=== PATIENT | female | born 1945 | race Caucasian/White ===

== ENCOUNTER 2016-06-04 16:29 | Inpatient (IN) ==
[2016-06-04] MEDS ORDERED: DILTIAZEM 100 MG VIAL.ADD IV ONE (17:25)
[2016-06-04] MEDS ORDERED: DILTIAZEM 50 MG/10 ML VIAL IV ONE ×2 (17:25→17:31)
[2016-06-04] MEDS ORDERED: DILTIAZEM 50 MG/10 ML VIAL IV STA (17:41)
--- NOTE | 2016-06-04 17:42 | Emergency Department Note ---
Dago Rodriguez Hilary, am scribing for, and in the presence of, Fredy Mark MD 17:36. Deedee Rodriguez Charles R, MD, personally performed the services described in this documentation, ascribed by Dari Loza in my presence, and it is both accurate and complete 742 . Arrival - Arrival Chief Complaint: Arrhythmia/Palpitations Stated Complaint: IRREGULAR HEART BEAT. COUGH ED Nursing Triage Note: Pt c/o Palpitations, cough, SOB, and blood in her urine for several days. Mode of Arrival: Wheelchair Limitations: No Limitations Source: Patient, RN Notes Reviewed - History of Present Illness HPI Narrative: Pt is a 70 y/o female presenting to the ED with c/o irregular heartbeat and coughing which onset a few days ago. Pt confirms SOB on exertion and her heart being "out of rhythm". Pt states she is supposed to be taking Coumadin but hasn' t been taking it because it gives her bruises. Onset (ago): day(s) Allergies/Adverse Reactions: Allergies Allergy/AdvReac Type Severity Reaction Status Date / Time iodine Allergy ITCHING Verified 04/19/15 07:54 Home Medications: Home Medications Medication Instructions Recorded Confirmed Type Amiodarone Tab [Cordarone Tab] 400 mg PO BID 06/04/16 06/04/16 History Ergocalciferol (Vitamin D2) 50,000 unit PO BID 06/04/16 06/04/16 History [Vitamin D2] Nystatin [Nystatin Oint] 1 applic TOP BID 06/04/16 06/04/16 History Warfarin Sodium 3 mg PO DAILY 06/04/16 06/04/16 History Review of System - Review of System 12 point system: reviewed and no additional remarkable complaints except as stated - Review of System Constitutional: Absent: fever Respiratory: Present: cough Cardiovascular: Present: palpitations, dyspnea on exertion Medical,Surgical,& Family Hx - Medical History Cardio: History of: Cardiac Dysrhythmia (AFIB), Hypertension - Surgical History Abdominal Surgeries: Surgical HX of: Abdominal Surgery (AAA repair) Reproductive Surgeries: Surgical HX of;: Hysterectomy - Social History Smoking Status: Never smoker Exam Vital Signs: Vital Signs Temperature 98.6 F 06/04/16 16:38 Pulse Rate 151 H 06/04/16 16:38 Respiratory Rate 20 06/04/16 16:38 Blood Pressure 175/118 06/04/16 16:38 O2 Sat by Pulse Oximetry 96 06/04/16 16:38 - General General appearance: alert, in no apparent distress - Head Head exam: Present: atraumatic, normocephalic - Eye Eye exam: Present: normal appearance, PERRL, EOMI - ENT ENT exam: Present: mucous membranes moist, TM's normal bilaterally. Absent: mucous membranes dry - Neck Neck exam: Present: full ROM, trachea midline. Absent: tenderness - Chest Chest inspection: Present: symmetric chest wall rise. Absent: tenderness - Respiratory Respiratory exam: Present: rales, rhonchi (bilateral) - Cardiovascular Cardiovascular exam: Present: tachycardia, irregular rhythm, other (AFIB; corotic massage with no relief) - Abdominal Exam Abdominal exam: Present: soft, normal bowel sounds. Absent: distention, tenderness - Extremities Exam Extremities exam: Present: full ROM. Absent: tenderness - Back Exam Back exam: Present: full ROM. Absent: tenderness - Neurological Exam Neurological exam: Present: alert, oriented X3, CN II-XII intact. Absent: motor sensory deficit - Psychiatric Psychiatric exam: Present: normal affect, normal mood - Skin Skin exam: Present: warm, dry, intact, normal color. Absent: rash Course - Consultations Consultation #1: Dr. 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 Ivan telemetry keep her on a Cardizem infusion start metoprolol 50 mg daily and continue Lovenox Time: 18:32 Results - Labs CBC & BMP: 06/04/16 17:47 06/04/16 17:47 Critical Care Time Critical Care Time: Yes Total Critical Care Time: 60 Disposition Clinical Impression: Palpitations, Atrial fibrillation with RVR, Medical non-compliance, Subtherapeutic anticoagulation Case discussed with: patient, patient's family Disposition: Still a Patient Condition: Stable Time of Disposition: 18:33
[2016-06-04] MEDS ORDERED: FUROSEMIDE 40 MG/4 ML VIAL IV STA (17:52)
--- NOTE | 2016-06-04 17:53 | XRay Report ---
Portable chest Date: 06/04/2016 Clinical history: Shortness of breath Comparison: 01/04/2014 Technique: Portable AP sitting chest Findings: The heart is minimally enlarged with calcification in the aortic knob. Chronic scarring in the lungs with atelectasis at the lung bases. The left cardiac fat pad. Stable mediastinum with degenerative changes. Impression: Persistent cardiomegaly with evidence of COPD and chronic scarring. Atelectasis at the lung bases. PROCEDURE INTERPRETED AT [facility] DEPARTMENT OF RADIOLOGY Final Report Signed by: Dr. Haylee English
[2016-06-04 17:54] LABS: PT Patient Result 10.8 SECS
[2016-06-04 18:06] LABS: Free T4 (Free Thyroxine) 1.58 NG/DL (0.76-1.46)
[2016-06-04 18:08] LABS: Basophils % 0.5 % (0.0-0.8); Eosinophils # 0.2 10*3/uL (0.0-0.87); Eosinophils % 2.4 % (0.00-10.9); Hemoglobin 12.3 GM/DL (12.0-16.0); Immature Granulocytes % 0.2 %; Immature Granulocytes Absolute 0.02 #; Lymphocytes # 2.9 10*3/uL (1.4-4.0); Lymphocytes % 36.1 % (21.3-54.2); Mean Corpuscular HGB Conc 30.4 GM/DL (32-36); Mean Corpuscular Hemoglobin 22 PG (27-34); Mean Corpuscular Volume 71.1 FL (87-102); Mean Platelet Volume 10.3 FL (9.6-12.0); Monocytes # 0.7 10*3/uL (0.11-0.8); Monocytes % 8.9 % (1.7-12.7); Neutrophils # 4.2 10*3/uL (1.4-7.4); Neutrophils % 51.9 % (38.7-73.9); Platelet Count 231 T/CUMM (130-400); White Blood Count 8.1 T/CUMM (4-12)
[2016-06-04 18:10] LABS: Albumin 3.4 G/DL (3.4-5.0); Bilirubin,Total 0.5 MG/DL (0.2-1.0); Calcium 8.8 MG/DL (8.5-10.1); Osmolality,Calculated 275.5 MOS/KG (273-304); Potassium 3.6 MMOL/L (3.5-5.1); Thyroid Stimulating Hormone 1.3 uIU/ml (0.358-3.74); Total Protein 7.3 G/DL (6.4-8.3); Troponin I Only 0.018 NG/ML (0.00-0.045)
[2016-06-04 18:16] LABS: Hematocrit 40.5 VOL% (35.7-47.0)
[2016-06-04] MEDS ORDERED: FUROSEMIDE 40 MG/4 ML VIAL ONE (18:17)
[2016-06-04] MEDS ORDERED: ENOXAPARIN 100 MG/ML SYRINGE SUBCUT STA (18:17)
[2016-06-04] MEDS ORDERED: ENOXAPARIN 100 MG/ML SYRINGE SUBCUT ONE (18:26)
[2016-06-04] MEDS ORDERED: METOPROLOL TARTRATE 50 MG TABLET PO STA (18:32)
[2016-06-04] MEDS: DILTIAZEM INJ 100 MG in SODIUM CHLORIDE 0.9% 100 ML IV SCH (18:37)
[2016-06-04] MEDS ORDERED: METOPROLOL TARTRATE 50 MG TABLET ONE (18:38)
[2016-06-04 19:02] LABS: Apearance,Urine CLEAR (Clear); Bacteria,Urine Occasional /HPF (Few); Bilirubin,Urine Negative (Negative); Blood, Urine Large mg/dL (Negative); Glucose,Urine (UA) Negative (Negative); Ketones,Urine Negative (Negative); Nitrite,Urine Negative (Negative); Protein,Urine 30 MG/DL; RBC,Urine 64 /HPF (0-4); Urine Color Yellow (Yellow); Urine Specific Gravity 1.003 (1.001-1.035); Urine Urobilinogen < 2.0 EU/DL (0.2-1.0); WBC,Urine 6 /HPF (0-6)
[2016-06-04] MEDS ORDERED: MAGNESIUM SULF RIDER 4 GM in PREMIX 1 EACH IV PRN (20:36)
[2016-06-04] MEDS ORDERED: SODIUM CHLORIDE 0.9% 1,000 ML IV SCH (20:36)
[2016-06-04] MEDS ORDERED: MORPHINE 2 MG/1 ML SYRINGE IV PRN (20:36)
[2016-06-04] MEDS ORDERED: POTASSIUM CHLORIDE 20 MEQ TABLET PO PRN (20:36)
[2016-06-04] MEDS ORDERED: ONDANSETRON 4 MG/2 ML VIAL IV PRN (20:36)
[2016-06-04] MEDS ORDERED: MAGNESIUM SULF RIDER 2 GM in PREMIX 1 EACH IV PRN (20:36)
[2016-06-04] MEDS: NYSTATIN OINT 15 GM TUBE TOP SCH (21:42)
[2016-06-04] MEDS: ERGOCALCIFEROL 50,000 UNIT CAPSULE PO SCH (21:42)
[2016-06-04] MEDS: AMIODARONE 200 MG TABLET PO SCH (21:42)
[2016-06-04 21:49] LABS: Troponin I Only 0.027 NG/ML (0.00-0.045)
[2016-06-05 05:47] LABS: Basophils # 0.1 10*3/uL (0.0-0.2); Basophils % 0.7 % (0.0-0.8); Eosinophils # 0.2 10*3/uL (0.0-0.87); Eosinophils % 2.6 % (0.00-10.9); Hemoglobin 11.4 GM/DL (12.0-16.0); Immature Granulocytes % 0.3 %; Immature Granulocytes Absolute 0.02 #; Lymphocytes # 3.1 10*3/uL (1.4-4.0); Lymphocytes % 41.2 % (21.3-54.2); Mean Corpuscular Hemoglobin 21 PG (27-34); Mean Corpuscular Volume 70.5 FL (87-102); Mean Platelet Volume 10.9 FL (9.6-12.0); Monocytes # 0.9 10*3/uL (0.11-0.8); Monocytes % 11.2 % (1.7-12.7); Neutrophils # 3.3 10*3/uL (1.4-7.4); Platelet Count 213 T/CUMM (130-400); Red Blood Count 5.39 MC/CUMM (3.8-5.5); Red Cell Distribution Width 17.3 % (9.3-17.3); White Blood Count 7.6 T/CUMM (4-12)
[2016-06-05] MEDS ORDERED: ENOXAPARIN 100 MG/ML SYRINGE SUBCUT SCH (06:00)
[2016-06-05 06:10] LABS: Band Neutrophils 3 % (0-10); Eosinophils 3 % (0-10); Hypochromasia 2+; Lymphocytes 37 % (20-55); Microcytosis 1+; Segmented Neutrophils 51 % (50-85); Total Cells Counted 100
[2016-06-05 06:11] LABS: Platelet Estimate Adequate
[2016-06-05 06:16] LABS: Bilirubin,Total 0.5 MG/DL (0.2-1.0); Calcium 8.3 MG/DL (8.5-10.1); Magnesium 2.2 MG/DL (1.8-2.4); Osmolality,Calculated 281.3 MOS/KG (273-304); Potassium 3.9 MMOL/L (3.5-5.1); Risk Ratio 4.76; Total Protein 6.5 G/DL (6.4-8.3); VLDL CHOLESTEROL 41.2 MG/DL
[2016-06-05 06:21] LABS: Troponin I Only 0.017 NG/ML (0.00-0.045)
--- NOTE | 2016-06-05 07:00 | EKG Report ---
Stationary ECG Study [facility] ER Test Date: 06/04/2016 4:40:26 PM Pat Name: JESSICA AZAR Department: Room: 284 Gender: F Yard Associate: Yovani Cervantes : 1945 Requested by: Fredy Donaldson Order Number: [id number] Reading MD: IAIN FORDE Intervals [place] Rate: 138 P: 999 WI: 0 QRS: 47 QRSD: 98 T: 70 QT: 291 QTc: 372 Interpretive Statements ATRIAL FIBRILLATION WITH RAPID VENTRICULAR RESPONSE ABNORMAL RHYTHM ECG Electronically Signed On 06-10-16 07:40:11 CDT by IAIN FORDE [email or web address]
[2016-06-05] MEDS ORDERED: WARFARIN 3 MG TABLET PO SCH (09:00)
[2016-06-05] MEDS ORDERED: METOPROLOL TARTRATE 50 MG TABLET PO SCH (09:00)
--- NOTE | 2016-06-05 09:03 | XRay Report ---
XR chest 1V portable Indication: Shortness of breath Comparison: Chest x-ray 06/04/2016 Technique: Portable AP chest was performed. Findings: Borderline to mild cardiomegaly is present likely accentuated by AP technique. Minimal intimal calcification of the aorta is demonstrated. Vasculature appears within normal limits. The lungs are clear. Bones and soft tissues demonstrate no significant abnormalities. Impression: 1. Borderline cardiomegaly. 2. Otherwise no evidence of active cardiac pulmonary disease. 06/05/2016 8:59 AM PROCEDURE INTERPRETED AT [facility] DEPARTMENT OF RADIOLOGY Final Report Signed by: Dr. Gagandeep Rivas
[2016-06-05] MEDS: ASPIRIN EC 81 MG TABLET PO SCH (09:17)
[2016-06-05] MEDS: PANTOPRAZOLE 40 MG TABLET PO SCH (09:17)
[2016-06-05] MEDS ORDERED: DILTIAZEM 50 MG/10 ML VIAL IV ONE (09:30)
[2016-06-05] MEDS: ERGOCALCIFEROL 50,000 UNIT CAPSULE PO SCH ×2 (09:34→21:39)
[2016-06-05] MEDS: AMIODARONE 200 MG TABLET PO SCH ×2 (09:35→21:46)
[2016-06-05] MEDS: DILTIAZEM INJ 100 MG in SODIUM CHLORIDE 0.9% 100 ML IV SCH (09:36)
[2016-06-05] MEDS: NYSTATIN OINT 15 GM TUBE TOP SCH ×2 (09:37→21:40)
--- NOTE | 2016-06-05 09:56 | Cardiology History & Physical ---
<Mary Luis E - Last Filed: 06/05/16 09:42> Assessment and Plan - Time spent with patient Time spent with patient: Greater than 30 minutes Time spent discussing smoking cessation with patient: 3 to 10 minutes (1) Upper respiratory infection Status: Acute Assessment and plan: See plan of care listed below Current Visit: Yes (2) Hypertension Status: Chronic Assessment and plan: See plan of care listed below Current Visit: Yes (3) Obesity (BMI 30.0-34.9) Status: Chronic Assessment and plan: See plan of care listed below Current Visit: Yes (4) Atrial fibrillation with RVR Status: Acute Assessment and plan: See plan of care listed below Current Visit: Yes (5) Medical non-compliance Status: Chronic Assessment and plan: See plan of care listed below Current Visit: Yes (6) COPD (chronic obstructive pulmonary disease) Status: Chronic Assessment and plan: See plan of care listed below Current Visit: Yes History of Present Illness Chief complaint: Atrial fibrillation with rapid ventricular response 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 RICHARD AT DISCHARGE) Ms. Yoon, 70WF, has risk factors significant for: hypertension, obesity, remote tobaccoism (quit 16 years ago), COPD. History of paroxysmal atrial fibrillation, SVT and known abdominal aortic aneurysm. Patient presented to the emergency department at [facility] last evening after experiencing heart racing and shortness of breath. She was found to be in atrial fibrillation with rapid ventricular response, heart rate 150s. She was given IV Cardizem, currently at 5 mg/h, and her heart rate has improved to 70s. She remains in atrial fibrillation. Patient denies having chest pain, heaviness or tightness. She is coughing frequently and contributes this to allergies. Since she has been battling her "allergies" she has found that she has been wheezing and short of breath. She did take Mucinex over the weekend for her allergies. She tells me she is usually very active and can perform her to activities without chest pain, heaviness or tightness. Patient has had paroxysmal atrial fibrillation for over 30 years. In the past, she has taken warfarin but quit taking several months ago. She has not been taking amiodarone as prescribed. She had a stroke approximately 30 years ago without residual deficits. Cardiac biomarkers are negative. ProBNP mildly elevated at 364. Patient acknowledges that she has been a noncompliant patient. It has been over a year since she seen Dr. Forde. She would like to see Dr. Odonnell for primary care needs at discharge. We discussed the possibility of using a nontraditional anticoagulants for stroke prevention she is agreeable to this approach. ASSESSMENT/PLAN: 1. ATRIAL FIBRILLATION WITH RVR -amiodarone has been restarted. She is currently on IV diltiazem 5 mg/h. I will increase her beta blockade and continue Amiodarone, stopping IV calcium channel barbara. Echocardiogram. 2. HYPERTENSION -adjust medications accordingly 3. REMOTE TOBACCOISM -they continued cessation of tobacco use was discussed 4. URI -will add respiratory treatments as she does have a slight wheeze, Zyrtec orally, Flonase nasal spray, azithromycin for possible bronchitis 5. OBESITY -dietary counseling prior to discharge 6. 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 She verbalizes understanding of this information and states that she is interested now in better controlling her health. Home Medications Medication Instructions Recorded Confirmed Type Amiodarone Tab [Cordarone Tab] 400 mg PO BID 06/04/16 06/04/16 History Ergocalciferol (Vitamin D2) 50,000 unit PO BID 06/04/16 06/04/16 History [Vitamin D2] Nystatin [Nystatin Oint] 1 applic TOP BID 06/04/16 06/04/16 History Warfarin Sodium 3 mg PO DAILY 06/04/16 06/04/16 History Allergies Allergy/AdvReac Type Severity Reaction Status Date / Time iodine Allergy ITCHING Verified 04/19/15 07:54 Review of systems: REVIEW OF SYSTEMS: - Constitutional Constitutional: Present: Fatigue. Absent: syncope, anorexia, night sweats - EENT Eyes: Absent: blurry vision, loss of vision, diplopia Ears: Absent: decreased hearing, ear pain, ear discharge - Cardiovascular Cardiovascular: Denies chest pain with exertion, edema. Has frequent palpitations. Absent: chest pain with deep breath, claudication - Respiratory Respiratory: Present: Productive cough of yellow sputum absent: wheezing, hemoptysis, change in phlegm color - Gastrointestinal Gastrointestinal: Denies constipation. Absent: abdominal pain, hematemesis, hematochezia, melena, change in bowel habits, nausea - Genitourinary Genitourinary: Absent: difficulty urinating, dysuria, urinary hesitancy, flank pain - Musculoskeletal Musculoskeletal: Present: back pain Absent: joint swelling, muscle cramps, muscle weakness - Neurological Neurological: Present: normal gait without frequent falls. Absent: dizziness, hemiparesis - Psychiatric Psychiatric: Absent: anxiety, depression, difficulty concentrating - Endocrine Endocrine: Present: fatigue. Absent: cold intolerance, heat intolerance, polyuria, polyphagia, polydipsia - Hematologic/Lymphatic Hematologic/Lymphatic: Present: easy bruising. Absent: easy bleeding -Integumentary Integumentary: Absent: lesions, rashes, skin breakdown Medical,Surgical,& Family Hx - Medical History Cardio: History of: Cardiac Dysrhythmia (AFIB), Hypertension No history of: CAD, [place] - Surgical History Abdominal Surgeries: Surgical HX of: Abdominal Surgery (AAA repair) Reproductive Surgeries: Surgical HX of;: Gynecologic Surgery, Hysterectomy - Social History Smoking Status: Former smoker Have you smoked in the last 12 months: No Frequency of Alcohol Use: None Type of Drug Use: None Marital Status: Lives With:: Spouse Functional capacity: independent ambulation Cardiology Physical Exam - Constitutional Vitals: Vital Signs Temp Pulse Resp BP Pulse Ox 98.0 F 81 20 109/71 99 06/05/16 08:00 06/05/16 08:00 06/05/16 08:00 06/05/16 08:00 06/05/16 08:00 Intake and Output 06/04/16 06/05/16 06/05/16 23:59 07:59 15:59 Intake Total 480 / 480 240 / 240 100 / 100 Balance 480 / 480 240 / 240 100 / 100 Intake: IV 100 / 100 Cardizem Inj 100 mg In Ns 100 / 100 100 ml @ 5 MG/HR 5 mls/ hr IV TITRATE MAURO Rx#: [id number] Oral 480 / 480 240 / 240 Other: Voiding Method Toilet Toilet # Voids 2 2 # Bowel Movements 2 Weight 91.626 kg 90.718 kg Patient Weight 06/05/16 23:59 Weight 90.718 kg Exam: General: [Appears well with no apparent distress.] [Pleasant and cooperative. ] [Appears comfortable.] HEENT: [PERRL, normocephalic, atraumatic. Mucous membranes moist. No jaundice noted. Conjunctiva moist and clear, sclerae anicteric] Neck: No JVD/HJR, no thyromegaly or lymphadenopathy noted. No carotid bruit appreciated Cardiac: [Irregularly irregular rhythm, controlled rate] [No obvious murmur rub or gallop.] Lungs: [End expiratory wheezes noted right posterior lobe] not requiring oxygen Abdomen: Soft, bowel sounds normoactive. Nontender and nondistended. No abdominal bruit or thrill noted. No masses noted. Musculoskeletal: No fluid collection. Decreased range of motion is noted. Extremities: No clubbing, cyanosis noted. [ No edema noted.] Upper extremity pulses 2+. Lower extremity pulses 2+. Capillary refill less than 3 seconds. Skin: No unusual lesions or rashes. No skin breakdown appreciated. Neuro: Awake, alert and oriented 3. Moves all extremities well without hemiparesis or paralysis. No essential tremor is appreciated. Result/EKG - Labs CBC & BMP: 06/05/16 04:41 06/05/16 04:41 Lab Results: I have reviewed the past 24 hour labs Labs: Laboratory Results - last 24 hr 06/04/16 06/05/16 06/05/16 21:14 04:41 04:41 WBC 7.6 RBC 5.39 Hgb 11.4 L Hct 38.0 MCV 70.5 L MCH 21 L MCHC 30.0 L RDW 17.3 Plt Count 213 MPV 10.9 Neut % (Auto) 44.0 Lymph % (Auto) 41.2 Tal[place]ferro % (Auto) 11.2 Eos % (Auto) 2.6 Baso % (Auto) 0.7 Neut # (Auto) 3.3 Lymph # (Auto) 3.1 [place]ferro # (Auto) 0.9 H Eos # (Auto) 0.2 Baso # (Auto) 0.1 Total Counted 100 Immature Gran % 0.3 Nucleated RBC % 0.0 Immature Gran # 0.02 Segmented Neutrophils 51 Band Neutrophils 3 Lymphocytes 37 Monocytes 5 Eosinophils 3 Basophils 1.0 H Nucleated RBCs # 0.00 Platelet Estimate Adequate Hypochromasia 2+ Microcytosis 1+ Sodium 141 Potassium 3.9 Chloride 104 Carbon Dioxide 29 Anion Gap 11.9 BUN 13 Creatinine 0.90 GFR Calculation 75 BUN/Creatinine Ratio 14.00 Glucose 113 H Calculated Osmolality 281.3 Calcium 8.3 L Magnesium 2.2 Total Bilirubin 0.50 AST 10 ALT 11 L Alkaline Phosphatase 109 Total Creatine Kinase 47 CK-MB (CK-2) 1.1 Troponin I 0.027 B-Natriuretic Peptide Total Protein 6.5 Albumin 3.0 L Globulin 3.5 Albumin/Globulin Ratio 0.8 L Triglycerides 206 H Cholesterol 157 LDL Cholesterol 97.0 VLDL Cholesterol 41.2 HDL Cholesterol 33 L Heart Disease Risk Ratio 4.76 06/05/16 06/05/16 04:41 04:41 WBC RBC Hgb Hct MCV MCH MCHC RDW Plt Count MPV Neut % (Auto) Lymph % (Auto) Taliaferro % (Auto) Eos % (Auto) Baso % (Auto) Neut # (Auto) Lymph # (Auto) [place]fer[place] # (Auto) Eos # (Auto) Baso # (Auto) Total Counted Immature Gran % Nucleated RBC % Immature Gran # Segmented Neutrophils Band Neutrophils Lymphocytes Monocytes Eosinophils Basophils Nucleated RBCs # Platelet Estimate Hypochromasia Microcytosis Sodium Potassium Chloride Carbon Dioxide Anion Gap BUN Creatinine GFR Calculation BUN/Creatinine Ratio Glucose Calculated Osmolality Calcium Magnesium Total Bilirubin AST ALT Alkaline Phosphatase Total Creatine Kinase 43 CK-MB (CK-2) 1.1 Troponin I 0.017 B-Natriuretic Peptide 364 H Total Protein Albumin Globulin Albumin/Globulin Ratio Triglycerides Cholesterol LDL Cholesterol VLDL Cholesterol HDL Cholesterol Heart Disease Risk Ratio - Diagnostic Findings Procedure: Chest x-ray: report reviewed by hi - EKG EKG results: interpreted by hi EKG shows: atrial fibrillation <Lonnie Forde Daniel - Last Filed: 06/05/16 15:35> History of Present Illness History of present illness: Patient personally interviewed and examined and chart reviewed. Discussed case with Mary Luis NP. I agree with the history and examination and assessment. In summation and in addition Ms. Yoon is a 70 year old female with prior atrial fibrillation. She has not been on any anticoagulant she's not been taking amiodarone what she is supposed to has not kept for follow-up. She now is admitted with atrial fibrillation with RVR. She's recently had a cough and congestion. Her chest x-ray revealed some chronic lung changes but no acute cardiopulmonary abnormalities. She is an ex smoker denies any recent smoking. Also with her cough congestion she states to me taking these next and denies any decongestants. Patient is now on Lovenox for stroke prevention. She's been started back on oral amiodarone. She is on metoprolol that seems to be holding her heart rates. She complains of gross hematuria is just started in the last 24-48 hours. Her urinalysis reveals large amount of blood. Her urine culture has not grown anything out at this time. Before starting this patient on further chronic anticoagulation I think we need to have neurology see the patient. Our overall plan will be to anticoagulate the patient control her heart rates and cardiovert her later. Our second alternative depending on what urology thinks will be to do a transesophageal echocardiogram to carry out cardioversion. She made at that time benefit with IV amiodarone. We will consult urology service. Cardiology Physical Exam - Constitutional Vitals: Vital Signs Temp Pulse Resp BP Pulse Ox 97.9 F 84 20 135/93 99 06/05/16 12:00 06/05/16 12:00 06/05/16 12:00 06/05/16 12:00 06/05/16 14:19 Intake and Output 06/04/16 06/05/16 06/05/16 23:59 07:59 15:59 Intake Total 480 / 480 240 / 240 505 / 505 Balance 480 / 480 240 / 240 505 / 505 Intake: IV 505 / 505 Cardizem Inj 100 mg In Ns 105 / 105 100 ml @ 5 MG/HR 5 mls/ hr IV TITRATE MAURO Rx#: [id number] Ns 1,000 ml @ 40 mls/hr 400 / 400 IV .Q24H MAURO Rx#: [id number] Oral 480 / 480 240 / 240 Other: Voiding Method Toilet Toilet # Voids 2 2 # Bowel Movements 2 Weight 91.626 kg 90.718 kg Patient Weight 06/05/16 23:59 Weight 90.718 kg Result/EKG - Labs CBC & BMP: 06/05/16 04:41 06/05/16 04:41 Labs: Laboratory Results - last 24 hr 06/04/16 06/05/16 06/05/16 21:14 04:41 04:41 WBC 7.6 RBC 5.39 Hgb 11.4 L Hct 38.0 MCV 70.5 L MCH 21 L MCHC 30.0 L RDW 17.3 Plt Count 213 MPV 10.9 Neut % (Auto) 44.0 Lymph % (Auto) 41.2 [place]ferro % (Auto) 11.2 Eos % (Auto) 2.6 Baso % (Auto) 0.7 Neut # (Auto) 3.3 Lymph # (Auto) 3.1 [place]ferro # (Auto) 0.9 H Eos # (Auto) 0.2 Baso # (Auto) 0.1 Total Counted 100 Immature Gran % 0.3 Nucleated RBC % 0.0 Immature Gran # 0.02 Segmented Neutrophils 51 Band Neutrophils 3 Lymphocytes 37 Monocytes 5 Eosinophils 3 Basophils 1.0 H Nucleated RBCs # 0.00 Platelet Estimate Adequate Hypochromasia 2+ Microcytosis 1+ Sodium 141 Potassium 3.9 Chloride 104 Carbon Dioxide 29 Anion Gap 11.9 BUN 13 Creatinine 0.90 GFR Calculation 75 BUN/Creatinine Ratio 14.00 Glucose 113 H Calculated Osmolality 281.3 Calcium 8.3 L Magnesium 2.2 Total Bilirubin 0.50 AST 10 ALT 11 L Alkaline Phosphatase 109 Total Creatine Kinase 47 CK-MB (CK-2) 1.1 Troponin I 0.027 B-Natriuretic Peptide Total Protein 6.5 Albumin 3.0 L Globulin 3.5 Albumin/Globulin Ratio 0.8 L Triglycerides 206 H Cholesterol 157 LDL Cholesterol 97.0 VLDL Cholesterol 41.2 HDL Cholesterol 33 L Heart Disease Risk Ratio 4.76 06/05/16 06/05/16 06/05/16 04:41 04:41 12:20 WBC RBC Hgb Hct MCV MCH MCHC RDW Plt Count MPV Neut % (Auto) Lymph % (Auto) Tal[place]ferro % (Auto) Eos % (Auto) Baso % (Auto) Neut # (Auto) Lymph # (Auto) [place]ferro # (Auto) Eos # (Auto) Baso # (Auto) Total Counted Immature Gran % Nucleated RBC % Immature Gran # Segmented Neutrophils Band Neutrophils Lymphocytes Monocytes Eosinophils Basophils Nucleated RBCs # Platelet Estimate Hypochromasia Microcytosis Sodium Potassium Chloride Carbon Dioxide Anion Gap BUN Creatinine GFR Calculation BUN/Creatinine Ratio Glucose Calculated Osmolality Calcium Magnesium Total Bilirubin AST ALT Alkaline Phosphatase Total Creatine Kinase 43 62 D CK-MB (CK-2) 1.1 1.5 Troponin I 0.017 < 0.015 B-Natriuretic Peptide 364 H Total Protein Albumin Globulin Albumin/Globulin Ratio Triglycerides Cholesterol LDL Cholesterol VLDL Cholesterol HDL Cholesterol Heart Disease Risk Ratio
[2016-06-05] MEDS ORDERED: METOPROLOL TARTRATE 25 MG TABLET PO ONE (10:04)
[2016-06-05 13:12] LABS: Troponin I Only < 0.015 NG/ML (0.00-0.045)
[2016-06-05] MEDS: ALBUTEROL 1.25 MG/3 ML NEB RESP TX SCH ×2 (14:15→19:23)
--- NOTE | 2016-06-05 18:29 | Urology Consultation ---
Assessment and Plan - Time spent with patient Time spent with patient: Greater than 30 minutes (1) Gross hematuria Status: Acute Assessment and plan: I will order CT urogram. She has a normal creatinine. We will hold the Lovenox. We will plan for cystoscopy on 06/07/16. Under local anesthesia. Current Visit: Yes History of Present Illness - Data of Consult Patient: new to practice Consult date: 06/05/16 Requesting Physician: Bronson Ivan - Consult Narrative Reason for consult: Gross hematuria History of present illness: Ms. Yoon is a 70 year old female who has had gross painless hematuria on and off. She was admitted the hospital with a cough and atrial fib. And then she was found to have gross hematuria. She is on Lovenox and aspirin. Apparently she is supposed to be on Coumadin but she does not take it because it causes bruising. She does not smoke now and has quit for about 16 years ago but smoked a pack a day for 40 years. She apparently had some kidney stones sometime ago too. Nothing recent. She denies recent urinary tract infection. Here her urinalysis obviously shows the blood. Cultures negative at 12 hours. She has a normal creatinine. CC: Lonnie Ivan, M - Home Medications and Allergies Home Medications: Home Medications Medication Instructions Recorded Confirmed Type Amiodarone Tab [Cordarone Tab] 400 mg PO BID 06/04/16 06/04/16 History Ergocalciferol (Vitamin D2) 50,000 unit PO BID 06/04/16 06/04/16 History [Vitamin D2] Nystatin [Nystatin Oint] 1 applic TOP BID 06/04/16 06/04/16 History Warfarin Sodium 3 mg PO DAILY 06/04/16 06/04/16 History Allergies/Adverse Reactions: Allergies Allergy/AdvReac Type Severity Reaction Status Date / Time iodine Allergy ITCHING Verified 04/19/15 07:54 - Genitourinary Genitourinary: Present: hematuria (Gross). Absent: abnormal vaginal bleeding, difficulty urinating, dysuria, flank pain, menorrhagia, urinary frequency, urinary hesitancy, urinary incontinence, vaginal discharge Exam - Constitutional Vitals: Period Temp Pulse Resp BP Sys/Shepard Pulse Ox Last 24 Hr 97.6 F-99.5 F 75-105 18-21 109-137/62-93 94-99 - GI/Abdominal GI/Abdominal exam: Present: soft. Absent: ascites, distended, firm, guarding, mass, tenderness, rebound - Genitourinary Genitourinary: other (Deferred until cystoscopy) Results - Labs CBC & BMP: 06/05/16 04:41 06/05/16 04:41 Lab Results: I have reviewed the past 24 hour labs
--- NOTE | 2016-06-05 20:31 | ECHO Report ---
Betina Yoon 06/05/2016 Exam Date: 10:36 Referring Physician: Madelin Pederson Technologist: JUANA Age: 70 Ht (in): 66 Wt (lb): 200 FExam Location: [facility] Gender: Echo [id number]: URI, Essential (primary) hypertensioIndications: fibrillation, Chronic fatigue, unspecified, COPD BP: 109 / 71 HR: 88 Atrial fibrillationRhythm: Technical Quality: IMPRESSIONS 1. Left ventricle is normal size and systolic function with ejection fraction of 50+ percent. There is mild concentric left ventricular hypertrophy. 2. Right and left atrium are mildly dilated at worse. 3. Right ventricle is normal size and function. 4. Mild mitral and calcification with mild regurgitation. 5. Aortic valve sclerotic without stenosis or regurgitation. 6. Tricuspid valve and pulmonic valve are unremarkable. 7. Pericardial fat pad is present. MEASUREMENTS (Male / Female) Normal Values 2D ECHO LV Diastolic Diameter PLAX 4.4 cm 4.2 - 5.9 / 3.9 - 5.3 cm LV Systolic Diameter PLAX 3.6 cm LV Fractional Shortening PLAX 16.5 % IVS Diastolic Thickness 1.2 cm 0.6 - 1.0 / 0.6 - 0.9 cm LVPW Diastolic Thickness 1.2 cm 0.6 - 1.0 / 0.6 - 0.9 cm RV Internal Dim ED PLAX 2.6 cm Aortic Root Diameter 3.7 cm LA Systolic Diameter LX 4.8 cm 3.0 - 4.0 / 2.7 - 3.8 cm FINDINGS Left Ventricle Normal left ventricular cavity size. Mild left ventricular hypertrophy. Left ventricular ejection fraction is estimated at 50 %. Right Ventricle The right ventricle is normal in size and function. Right Atrium Mild atrial enlargement in apical view (elongated RA). Left Atrium Mild atrial enlargement in apical view (elongated LA). Mitral Valve Morphologically normal mitral valve. Mild mitral annular calcification. Mild mitral valve regurgitation. Aortic Valve Aortic valve sclerosis without stenosis or regurgitation. Tricuspid Valve Morphologically normal tricuspid valve without significant stenosis or regurgitation. Pulmonary artery systolic pressure is normal. Pulmonic Valve Morphologically normal pulmonic valve without significant stenosis. There is no pulmonic regurgitation. Pericardium Normal pericardium without effusion. There is a pericardial fat pad. Aorta Normal ascending aorta dimension. Lonnie Ivan MD (Electronically Signed) 05 June 2016 Final Date: 20:30
[2016-06-05] MEDS: METOPROLOL TARTRATE 100 MG TABLET PO SCH (21:48)
[2016-06-05] MEDS: ACETAMINOPHEN 325 MG TABLET PO PRN (22:41)
[2016-06-06] MEDS: ALBUTEROL 1.25 MG/3 ML NEB RESP TX SCH ×4 (00:35→19:04)
[2016-06-06] MEDS: ERGOCALCIFEROL 50,000 UNIT CAPSULE PO SCH ×2 (08:21→21:59)
[2016-06-06] MEDS: METOPROLOL TARTRATE 100 MG TABLET PO SCH ×2 (08:22→22:01)
[2016-06-06] MEDS: AMIODARONE 200 MG TABLET PO SCH ×2 (08:22→21:59)
[2016-06-06] MEDS: PANTOPRAZOLE 40 MG TABLET PO SCH (08:22)
[2016-06-06] MEDS: ASPIRIN EC 81 MG TABLET PO SCH (08:22)
[2016-06-06] MEDS: NYSTATIN OINT 15 GM TUBE TOP SCH ×2 (08:22→22:00)
--- NOTE | 2016-06-06 11:08 | CT Report ---
CT abdomen pelvis Indication: Painless hematuria Comparison: CT and October 2011 Technique: Axial CT imaging of the abdomen and pelvis is performed with intravenous contrast. Contrast dose is 100 cc of Omnipaque 350. Protocol was used. No oral contrast was given. Findings: Cardiac and lung bases are within normal limits CT abdomen: The liver spleen pancreas and adrenal glands are normal in size and enhancement. No evidence of focal lesion is demonstrated in these solid organs. Kidneys are normal in size. There is a simple appearing cyst on the left kidney that measures 2.1 cm in size. Otherwise enhancement pattern appears within normal limits. No evidence of hydronephrosis or nephrolithiasis is seen.. There is a large abdominal aortic aneurysm similar in size to previous study with aortic stent graft that appears within normal limits no contrast is seen outside of the stent graft. The bowel caliber is normal and no wall thickening or adjacent inflammatory change is seen. No evidence of free fluid or free air is present. CT pelvis: There is a mass within the bladder wall posteriorly to the right just below the ureterovesical junction, size is estimated 3.0 x 1.5 cm. No enlarged lymph nodes are seen. The pelvic bowel appears within normal limits. The uterus and ovaries are not clearly seen. Impression: Bladder mass as described above. This CT exam was performed using one or more the following dose reduction techniques: Automated exposure control, adjustment of the MA and/or KV according to patient size, or use of iterative reconstruction technique. PROCEDURE INTERPRETED AT [facility] DEPARTMENT OF RADIOLOGY Final Report Signed by: Dr. Velasquez Paredes
--- NOTE | 2016-06-06 11:57 | Urology Progress Note ---
Assessment and Plan (1) Gross hematuria Status: Acute Assessment and plan: I will order CT urogram. She has a normal creatinine. We will hold the Lovenox. We will plan for cystoscopy on 06/07/16. Under local anesthesia. Current Visit: Yes Urology - PN: Subj Interval history: Follow-up CT in hematuria. Her hematuria is clearing she is off the Lovenox. The CT urogram reveals some cysts in her kidney. No hydronephrosis and no stones. In the pelvic portion of the urogram we find a bladder mass. I am almost certain this is a bladder tumor. There is no hydronephrosis. These findings were explained to the patient and her . I have recommended cystoscopy. We will perform that in the morning. This will be done under local anesthesia. I related to the patient and her that this could be a benign tumor, bladder stone, confluence of shadows and possibly a malignancy. They understand this and agreed to proceed. Exam - Constitutional Vitals: Period Temp Pulse Resp BP Sys/Shepard Pulse Ox Last 24 Hr 97.9 F-98.7 F 80-104 16-20 110-143/55-93 94-99 Results - Labs CBC & BMP: 06/05/16 04:41 06/05/16 04:41
--- NOTE | 2016-06-06 16:09 | Cardiology Progress Note ---
<Mary Luis E - Last Filed: 06/06/16 16:01> Assessment and Plan - Time spent with patient Time spent with patient: Greater than 30 minutes (1) Upper respiratory infection Status: Acute Assessment and plan: See plan of care listed below Current Visit: Yes (2) Hypertension Status: Chronic Assessment and plan: See plan of care listed below Current Visit: Yes (3) Obesity (BMI 30.0-34.9) Status: Chronic Assessment and plan: See plan of care listed below Current Visit: Yes (4) Atrial fibrillation with RVR Status: Acute Assessment and plan: See plan of care listed below Current Visit: Yes (5) Medical non-compliance Status: Chronic Assessment and plan: See plan of care listed below Current Visit: Yes (6) COPD (chronic obstructive pulmonary disease) Status: Chronic Assessment and plan: See plan of care listed below Current Visit: Yes (7) Hematuria Status: Acute Assessment and plan: See plan of care listed below Current Visit: Yes Cardiology - PN: Subj Interval history: 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 FORDE PCP: (NEEDS NEW PCP AND TO SEE DR. RICHARD AT DISCHARGE) SUMMARY: Ms. Yoon, 70WF, presented to the emergency department at [facility] June 05, 2016 with complaints of heart racing and shortness of breath. She was found to be in atrial fibrillation with rapid ventricular response. Initially, she required IV Cardizem and this was transitioned off. She is currently on oral amiodarone 400 mg twice daily (she had stopped taking several months ago). She is also taking Metoprolol tartrate 100 mg p.o. twice daily. Her rate is currently controlled, atrial fibrillation persists. Patient had been previously prescribed Coumadin for stroke prevention. She had stopped this many months ago due to easy bruising. This was reinitiated on admission. She subsequently developed hematuria. ( Hematuria has resolved). Dr. Zuñiga has been consulted and is planning to perform cystoscopy tomorrow to evaluate a bladder abnormality. For this reason , anticoagulants have been on hold. ASSESSMENT/PLAN: 1. ATRIAL FIBRILLATION WITH RVR -currently rate controlled. Holding anticoagulants for gross hematuria. 2. HYPERTENSION -well controlled 3. REMOTE TOBACCOISM - continued cessation of tobacco use was discussed 4. URI -improved with azithromycin, Zyrtec and Flonase nasal spray 5. OBESITY - dietary counseling prior to discharge 6. 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 She verbalizes understanding of this information and states that she is interested now in better controlling her health. 7. HEMATURIA -cystoscope in the morning Exam (Progress Note) - Constitutional Vitals: Period Temp Pulse Resp BP Sys/Shepard Pulse Ox Last 24 Hr 97.4 F-98.7 F 80-104 16-20 110-143/55-85 96-99 Exam: General: [Appears well with no apparent distress.] [Pleasant and cooperative. ] [Appears comfortable.] HEENT: [PERRL, normocephalic, atraumatic. Mucous membranes moist. No jaundice noted. Conjunctiva moist and clear, sclerae anicteric] Neck: No JVD/HJR, no thyromegaly or lymphadenopathy noted. No carotid bruit appreciated Cardiac: [Irregularly irregular rhythm, controlled rate] [No murmur rub or gallop.] Lungs: [Clear to auscultation without accessory muscle use to assist the respiratory pattern.] Using oxygen intermittently Abdomen: Soft, bowel sounds normoactive. Nontender and nondistended. No abdominal bruit or thrill noted. No masses noted. Musculoskeletal: No fluid collection. Decreased range of motion is noted. Extremities: No clubbing, cyanosis noted. [ No edema noted.] Upper extremity pulses 2+. Lower extremity pulses 2+. Capillary refill less than 3 seconds. Skin: No unusual lesions or rashes. No skin breakdown appreciated. Neuro: Awake, alert and oriented 3. Moves all extremities well without hemiparesis or paralysis. No essential tremor is appreciated. Result/EKG - Labs CBC & BMP: 06/05/16 04:41 06/05/16 04:41 Lab Results: I have reviewed the past 24 hour labs - EKG EKG results: interpreted by me EKG shows: atrial fibrillation <Lonnie Forde - Last Filed: 06/06/16 17:54> Cardiology - PN: Subj Interval history: Patient personally interviewed and examined and chart reviewed. I discussed his case with Mary Luis NP. I agree with the history and examination as well as assessment. Dr. Zuñiga evaluation is noted and pelvis cystoscopy is planned tomorrow for what appears to be abnormal bladder. This certainly may be the source of her hematuria. Before starting anticoagulation we certainly will need to have this resolved. Her heart rates are pretty well managed at this time with her metoprolol. We may have to make other just despite adding diltiazem to her regimen. I've discussed these findings and overall plans with the patient and her . Exam (Progress Note) - Constitutional Vitals: Period Temp Pulse Resp BP Sys/Shepard Pulse Ox Last 24 Hr 96.9 F-98.7 F 77-104 16-20 107-143/55-85 94-99 Result/EKG - Labs CBC & BMP: 06/05/16 04:41 06/05/16 04:41
[2016-06-06] MEDS: ACETAMINOPHEN 325 MG TABLET PO PRN (20:10)
[2016-06-07] MEDS: ALBUTEROL 1.25 MG/3 ML NEB RESP TX SCH ×3 (01:11→13:51)
[2016-06-07 07:15] LABS: Calcium 8.2 MG/DL (8.5-10.1); Magnesium 2.1 MG/DL (1.8-2.4); Osmolality,Calculated 277.5 MOS/KG (273-304); Potassium 4.3 MMOL/L (3.5-5.1)
[2016-06-07 07:31] LABS: Basophils % 0.5 % (0.0-0.8); Eosinophils # 0.2 10*3/uL (0.0-0.87); Eosinophils % 2.4 % (0.00-10.9); Hematocrit 37.6 VOL% (35.7-47.0); Immature Granulocytes % 0.4 %; Immature Granulocytes Absolute 0.03 #; Lymphocytes # 2.5 10*3/uL (1.4-4.0); Lymphocytes % 32.6 % (21.3-54.2); Mean Corpuscular HGB Conc 29.3 GM/DL (32-36); Mean Corpuscular Hemoglobin 22 PG (27-34); Mean Corpuscular Volume 73.6 FL (87-102); Mean Platelet Volume 11.1 FL (9.6-12.0); Monocytes # 0.7 10*3/uL (0.11-0.8); Monocytes % 9.1 % (1.7-12.7); Neutrophils # 4.2 10*3/uL (1.4-7.4); Platelet Count 216 T/CUMM (130-400); Red Blood Count 5.11 MC/CUMM (3.8-5.5); Red Cell Distribution Width 16.9 % (9.3-17.3); White Blood Count 7.6 T/CUMM (4-12)
[2016-06-07] MEDS: AMIODARONE 200 MG TABLET PO SCH (10:00)
[2016-06-07] MEDS: PANTOPRAZOLE 40 MG TABLET PO SCH (10:00)
[2016-06-07] MEDS: METOPROLOL TARTRATE 100 MG TABLET PO SCH (10:00)
[2016-06-07] MEDS: ASPIRIN EC 81 MG TABLET PO SCH (10:00)
[2016-06-07] MEDS: ERGOCALCIFEROL 50,000 UNIT CAPSULE PO SCH (10:00)
[2016-06-07] MEDS: NYSTATIN OINT 15 GM TUBE TOP SCH (10:01)
--- NOTE | 2016-06-07 10:46 | Physician Query Form ---
CLICK EDIT DOCUMENT TO SELECT QUERY ANSWER --> OK --> SIGN Francia Miranda RN, CCDS Certified Clinical Health Evaluator W) [phone] (f) [phone] [email or web address]: Make your selection(s) from the choices in EACH section by typing an "x" and enter comments in the comment section. Please use your independent medical judgment in providing your response. This request does not imply that any particular answer is desired or expected. CLINICAL INDICATORS: (Providers should not edit this section) Patient admitted in Afib with RVR, started on Lovenox and had gross hematuria, "Her hematuria is clearing she is off the Lovenox", "Holding anticoagulants for gross hematuria" Based on the above, could you clarify the appropriate diagnosis, if significant , that supports the above abnormalities and additional evaluation, monitoring, and/or treatment rendered: ( ) Gross Hematuria related to anticoagulant ( ) Gross Hematuria not related to anticoagulant (x ) Gross Hematuria related to other cause, please specify: bladder mass ( ) Clinically unable to determine COMMENTS: Use of terms such as suspected, likely, or probable (associated with a specific diagnosis that is being evaluated, monitored, or treated as if it exists) are acceptable and can be restated in the discharge summary if not ruled out. MTDD
--- NOTE | 2016-06-07 11:17 | Operative Note ---
Date of procedure: 06/07/16 Pre-op diagnosis: Gross hematuria possible mass in the bladder Post-op diagnosis: other (Gross hematuria with moderately large bladder tumor right base) Procedure: 70-year-old white female with multiple medical problems having gross hematuria she was on Lovenox which we stopped. A CT urogram reveals normal upper tracts except for some cysts in the kidney. There is a potential mass in the bladder. Brought in for endoscopy. Patient brought to the endoscopy prepared and draped in usual sterile manner. Tube Xylocaine jelly is placed in urethra and bladder for anesthesia. The flexible 16 Turkmen cystourethroscope passed under vision. Urethra is normal. The bladder reveals a moderately large tumor at the right base. I could not visualize the right ureteral orifice. There is no other tumors. This tumor did extend to the bladder neck as best I could tell with the flexible cystoscope. The left ureteral orifice is normal and there are no other tumors. At this point the bladder was drained cystoscope removed based on her procedure well. She was then sent to room in good condition. I explained the situation to the patient. I tried to contact the by telephone but he did not answer. If she stays through the weekend I will see her back on Friday and talk about this further. She needs TUR of this. Scheduling is going to be the issue. If she is discharged and I will see her in the office in 1 week. I do recommend only aspirin as any other blood thinner will cause her to hemorrhage. Anesthesia: local Surgeon / Physician: Negro Zuñiga Estimated blood loss: none Specimens: none sent Condition: stable Disposition: floor Results - Labs CBC & BMP: 06/07/16 04:43 06/07/16 04:43 Discharge Plan - Discharge Medications No Action Warfarin Sodium 3 mg PO DAILY Amiodarone Tab [Cordarone Tab] 400 mg PO BID Nystatin [Nystatin Oint] 1 applic TOP BID Ergocalciferol (Vitamin D2) [Vitamin D2] 50,000 unit PO BID - Follow Up or Referral - Forms/Instructions
[2016-06-07 11:54] VITALS: BP 143/85
--- NOTE | 2016-06-07 12:24 | Discharge Summary ---
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 FORDE PCP: (DR. GUZMÁN AT DISCHARGE) Ms. Yoon, 70WF, has risk factors significant for: hypertension, obesity, remote tobaccoism (quit 16 years ago), COPD. History of paroxysmal atrial fibrillation, SVT and known abdominal aortic aneurysm. Patient presented to the emergency department at [facility] after experiencing heart racing and shortness of breath. She was found to be in atrial fibrillation with rapid ventricular response, heart rate 150s. She was given IV Cardizem and her heart rate improved. She remained in atrial fibrillation with a controlled ventricular response. Patient has had paroxysmal atrial fibrillation for over 30 years, managed by Dr. Forde. In the past, she has taken warfarin but quit taking several months ago. She also reports that she was not taking amiodarone as prescribed prior to being admitted. She had a stroke approximately 30 years ago without residual deficits. Cardiac biomarkers are negative. She has been without chest pain, heaviness and tightness. Patient's amiodarone was reinitiated and she was placed on Lovenox for stroke prevention. However, after receiving the Lovenox she had episodes of gross hematuria. Urinalysis revealed a large amounts of blood. Urine culture was negative. Urology was consulted. Patient underwent CT urogram which revealed possible bladder mass. Subsequently she underwent cystoscopy which revealed a moderately large tumor in the right base. Dr. Negro Zuñiga feels that patient is stable for discharge. He has requested to see her next week in the office to discuss treatment options. He also recommended to continue to hold anticoagulation. Patient's atrial fibrillation has been well controlled during her hospital stay. She remains in atrial fibrillation with controlled ventricular response. Heart rates have been well controlled with beta-barbara and amiodarone. Patient will be discharged home with amiodarone and Lopressor. Patient has had no further episodes of hematuria. Anticoagulation will be held at discharge. Having felt that patient has met maximal medical therapy, she will be discharged home in stable condition. Patient had echocardiogram this admission which revealed normal LV size and systolic function with ejection fraction of greater than 50%. Mild concentric left ventricular hypertrophy. Mildly dilated right and left atrium. Mild MR. Patient will be given follow-up appointment with Dr. Negro Zuñiga next week to discuss treatment options of her bladder tumor. She also be given appointment with Dr. Forde in approximately 1 month with BMP, magnesium and EKG. Per her request, she will be given a follow-up appointment with Dr. Odonnell. She would like for him to be her new primary care provider. Patient verbalized understanding of discharge instructions and discharge medications. - Time spent with patient Time with patient DS: Greater than 30 minutes Diagnosis - Discharge Diagnosis (1) Bladder tumor Status: Acute (2) Atrial fibrillation with RVR Status: Chronic (3) Gross hematuria Status: Resolved (4) COPD (chronic obstructive pulmonary disease) Status: Chronic (5) Hypertension Status: Chronic Specialty Discharge - Follow Up or Referrals Follow up with: Lonnie Forde MD [Physician] - 1 Month (Follow with Dr. Forde in 1 month with BMP, magnesium and EKG.) Siddharth Guzmán MD [Physician] - 2 Weeks (Point with Dr. Guzmán in 2 weeks per patient request.) Negro Zuñiga MD [Physician] - 06/11/16 2:00 pm (Patient will need to follow- up with Dr. Negro Zuñiga in the office. She will need first available appointment next week to discuss treatment options of bladder tumor.) Discharge Plan - Discharge Data Disposition: Disch To Home/Self Care Condition at Discharge: Stable Discharge Diet: heart healthy Activity: resume usual activities as tolerated Hygiene: may shower Weight Bearing at Discharge: weight bear as tolerated Driving: not until seen by doctor Contact your physician if you experience:: fever over 101, Difficulty voiding, Redness or swelling, Nausea/Vomiting, Shortness of breath, Bleeding, pain uncontrolled by pain medications - Discharge Medications New Metoprolol Tartrate Tab [Lopressor Tab] 100 mg PO BID #60 tablet Continue Nystatin [Nystatin Oint] 1 applic TOP BID Ergocalciferol (Vitamin D2) [Vitamin D2] 50,000 unit PO BID Changed Amiodarone Tab [Cordarone Tab] 200 mg PO BID #0 Discontinued Warfarin Sodium 3 mg PO DAILY - Follow Up or Referral Follow Up: Lonnie Forde MD [Physician] - 1 Month (Follow with Dr. Forde in 1 month with BMP, magnesium and EKG.) Siddharth Guzmán MD [Physician] - 2 Weeks (Point with Dr. Guzmán in 2 weeks per patient request.) Negro Zuñiga MD [Physician] - 06/11/16 2:00 pm (Patient will need to follow- up with Dr. Negro Zuñiga in the office. She will need first available appointment next week to discuss treatment options of bladder tumor.) - Forms/Instructions Instructions: Chronic Obstructive Pulmonary Disease (DC), Acute Hematuria (DC) Exam - Constitutional Vitals: Period Temp Pulse Resp BP Sys/Shepard Pulse Ox Last 24 Hr 96.1 F-98.8 F 70-96 18-20 109-143/69-88 92-100 Exam: General: [Appears well with no apparent distress.] [Pleasant and cooperative. ] [Appears comfortable.] HEENT: [PERRL, normocephalic, atraumatic. Mucous membranes moist. No jaundice noted. Conjunctiva moist and clear, sclerae anicteric] Neck: No JVD/HJR, no thyromegaly or lymphadenopathy noted. No carotid bruit appreciated Cardiac: [Irregularly irregular rhythm, controlled rate] [No murmur rub or gallop.] Lungs: [Clear to auscultation without accessory muscle use to assist the respiratory pattern.] Using oxygen intermittently Abdomen: Soft, bowel sounds normoactive. Nontender and nondistended. No abdominal bruit or thrill noted. No masses noted. Musculoskeletal: No fluid collection. Decreased range of motion is noted. Extremities: No clubbing, cyanosis noted. [ No edema noted.] Upper extremity pulses 2+. Lower extremity pulses 2+. Capillary refill less than 3 seconds. Skin: No unusual lesions or rashes. No skin breakdown appreciated. Neuro: Awake, alert and oriented 3. Moves all extremities well without hemiparesis or paralysis. No essential tremor is appreciated. Discharge Results Labs on day of discharge: Labs from last 24 hours 06/07/16 06/07/16 04:43 04:43 WBC 7.6 RBC 5.11 Hgb 11.0 L Hct 37.6 MCV 73.6 L MCH 22 L MCHC 29.3 L RDW 16.9 Plt Count 216 MPV 11.1 Neut % (Auto) 55.0 Lymph % (Auto) 32.6 Highland % (Auto) 9.1 Eos % (Auto) 2.4 Baso % (Auto) 0.5 Neut # (Auto) 4.2 Lymph # (Auto) 2.5 Highland # (Auto) 0.7 Eos # (Auto) 0.2 Baso # (Auto) 0.0 Immature Gran % 0.4 Nucleated RBC % 0.0 Immature Gran # 0.03 Nucleated RBCs # 0.00 Sodium 139 Potassium 4.3 Chloride 103 Carbon Dioxide 28 Anion Gap 12.3 BUN 13 Creatinine 0.90 GFR Calculation 78 BUN/Creatinine Ratio 14.00 Glucose 111 H Calculated Osmolality 277.5 Calcium 8.2 L Magnesium 2.1 - Imaging and Cardiology Procedure: Chest x-ray: report reviewed by me DS: Provider Date of admission: 06/04/16 18:34 Primary care physician: . No PCP Attending physician on admission: iLsa Busby Consults: 06/05/16 15:28 Consult to Physician [CONS] Routine Comment: gross hematuria Consulting Provider: Negro Zuñiga Consulting Provider Notified: No When should Consulting Provider be notified: Now Person Notified: felicia Date Notified: 06/05/16 Time Notified: 15:39 Discharging clinician: Carlota Amaya NP Expected date of discharge: 06/07/16 <Lonnie Forde - Last Filed: 06/07/16 15:24> Hospital Course - Hospital Course Hospital Course: Personally interviewed and examined the patient and chart reviewed. I discussed the patient's case with Carltoa Amaya NP. Agree with in the interview examination assessment. In addition a summation patient be discharged vomiting one month. We will have her take her and on only 200 mg twice a day. We will see her in the month and hopefully by that time she will have had her bladder issue resolved. We will anticoagulate her once she is resolved this issue and has had healing and Dr. Zuñiga since we can anticoagulate her for atrial fibrillation and stroke prevention. At this time she has gross hematuria with anticoagulation. I discussed this with the patient and her family they voice understanding and agree.
== END 2016-06-07 16:31 | disposition home or self-care (01) | DRG 310 ==
LOC: N.ED 16:29 → N.EDINP 18:34 → N.TELEN 20:17
PROVIDERS: ADMIT Internal Medicine Cardiovascular Disease; ATTEND Internal Medicine Cardiovascular Disease

== ENCOUNTER 2016-06-20 09:04 | Inpatient (IN) ==
[2016-06-20] MEDS ORDERED: ONDANSETRON 4 MG/2 ML VIAL IV STA (09:31)
[2016-06-20] MEDS ORDERED: FUROSEMIDE 100 MG/10 ML VIAL IV STA (09:31)
[2016-06-20] MEDS ORDERED: NITROGLYCERIN 2% OINT 1 INCH/GM PACK TOP STA (09:33)
--- NOTE | 2016-06-20 09:41 | Emergency Department Note ---
Zackary Rodriguez Gwan, am scribing for, and in the presence of, Brandt Field MD 09:39 . Rashida Rodriguez James D, MD, personally performed the services described in this documentation, ascribed by Shyann Raymundo in my presence, and it is both accurate and complete 941 . Arrival - Arrival Chief Complaint: Shortness of Breath Stated Complaint: sob,nauseated,BP high ED Nursing Triage Note: pt feels like her afib is acting up. has been off coumadin for nearly two weeks to get ready for surgery for bladder cancer next week. reports nausea. reports sob. has romeo wearing her o2 for about a week. Mode of Arrival: Wheelchair Limitations: No Limitations Source: Patient, Old Records Reviewed - History of Present Illness HPI Narrative: Pt is a 70 y/o female who presents to the ED for further evaluation of SOB and nausea with an onset 2 weeks. Patient stated that she has been recently dx with bladder CA by Dr. Zuñiga and is scheduled to have surgery 06/26/2016. She continued to note that her SOB has worsened when she lays flat. During triage, pt's BP was 153/119 and she confirms that she has been complaint with medication. She then stated that she has been taking Warfin but was taken off of it when dx with bladder CA to prepare for surgery. Patient has also been followed by Dr. Forde. Onset (ago): week(s) Consistency: constant Severity: moderate Allergies/Adverse Reactions: Allergies Allergy/AdvReac Type Severity Reaction Status Date / Time iodine Allergy ITCHING Verified 06/19/16 14:00 Home Medications: Home Medications Medication Instructions Recorded Confirmed Type Nystatin [Nystatin Oint] 1 applic TOP BID PRN 06/04/16 06/20/16 History Metoprolol Tartrate Tab [Lopressor 100 mg PO BID #60 tablet 06/07/16 06/20/16 Rx Tab] Aspirin 81 mg PO QAM 06/19/16 06/20/16 History Amiodarone Tab [Cordarone Tab] 400 mg PO BID 06/20/16 06/20/16 History Review of System - Review of System 12 point system: reviewed and no additional remarkable complaints except as stated - Review of System Constitutional: Absent: chills, fever Eyes: Absent: discharge, pain Head/Ears/Nose/Throat: Absent: earache Respiratory: Present: as per HPI, other (shortness of breathe). Absent: cough Cardiovascular: Absent: chest pain Gastrointestinal: Present: as per HPI, nausea. Absent: abdominal pain, diarrhea Musculoskeletal: Absent: arm pain, back pain, leg pain, neck pain Skin: Absent: rash, lesions Medical,Surgical,& Family Hx - Medical History Cardio: History of: Cardiac Dysrhythmia (AFIB), Hypertension, Cardiovascular Problems (DR FORDE. SAW IN HOSPITAL 2 WEEKS AGO. AORTIC ANEURYSM.) No history of: CAD, [place] Psychological: History of: Depression Neurology: History of: Cerebrovascular Accident (RT EAR AFFECTED) No history of: Seizures HEENT: History of: Ear Problem (RT EAR [place]), Eye Problem (READING GLASSES), Dental Problems (UPPER DENTURE) Respiratory: No history of: Respiratory Problems (SOB. PT USING HUSBANDS O2. FLU VAC-NO; PNEU VAC- NO.) Genitourinary: History of: Bladder Problem (TUMOR) Gastrointestinal: History of: GERD (PAST HX.), Hemorrhoids, Polyps (REMOVED) Musculoskeletal: History of: Back/Neck Problems (LOWER BACK PAIN.), Musculoskeletal Problems (CURVATURE OF SPINE.) - Surgical History Abdominal Surgeries: Surgical HX of: Abdominal Surgery (AAA repair), Appendectomy, Colonoscopy, EGD Reproductive Surgeries: Surgical HX of;: Gynecologic Surgery, Hysterectomy Orthopedic Surgeries: Surgical HX of;: Orthopedic Surgery (TIBIA FX SURGERY.) - Social History Smoking Status: Former smoker Exam Physical Examination: GENERAL: This is a morbidly obese white female in no apparent distress. VITAL SIGNS: HEENT: Head is normocephalic and atraumatic. Pupils are equally round and reactive to light. Extraocular movement are intact. Oropharynx is benign with moist mucous membranes. NECK: Neck is soft and supple without tenderness. There are no masses. There is no lymphadenopathy. LUNGS: Chest rises symmetrically. There is no chest wall tenderness. Patient has expiratory wheezes noted to bilateral lung gonzales. CV: Heart is irregular rate and irregular rhythm without murmurs, rubs, or gallops. ABDOMEN: Abdomen is soft, non-tender to palpation. There are no abnormal masses palpated. There is no organomegaly. Bowel sounds are present and active. SKIN: Skin is warm and dry. No rash. EXTREMITIES: Patient has full range of motion without tenderness. There is +2 pitting edema noted to bilateral lower extremities NEUROLOGIC: Awake, alert, and oriented x4. Cranial nerves II through XII are grossly intact. There are no motorsensory deficits. PSYCHIATRIC: Normal affect. Normal mood. Vital Signs: Vital Signs Temperature 98.5 F 06/20/16 09:30 Pulse Rate 101 H 06/20/16 10:17 Respiratory Rate 33 H 06/20/16 10:17 Blood Pressure 166/126 06/20/16 09:46 O2 Sat by Pulse Oximetry 100 06/20/16 10:17 Course Course Narrative: Patient was given Lasix and Nitropaste in the emergency department. - Consultations Consultation #1: Discussed with Dr. Galo Zuñiga. Patient will be admitted to his service. Time: 11:50 Results - Labs CBC & BMP: 06/20/16 09:33 06/20/16 09:33 Lab Results: I have reviewed the patients labs Labs: Laboratory Tests 06/20/16 06/20/16 09:33 09:33 WBC 8.9 RBC 5.24 Hgb 11.3 L Hct 38.7 MCV 73.9 L MCH 22 L MCHC 29.2 L Plt Count 286 Lymph % (Auto) 17.2 L Sodium 136 Potassium 4.4 Chloride 100 Carbon Dioxide 32 BUN 13 Creatinine 0.90 Glucose 122 H Calculated Osmolality 272.0 L Albumin 3.1 L Globulin 4.2 H Albumin/Globulin Ratio 0.7 L Laboratory Tests 06/20/16 09:31 INR 1.0 PT Patient/Control Mix 10.9 Circ Anticoag PTT 25.0 Laboratory Tests 06/20/16 09:33 Troponin I < 0.015 Laboratory Tests 06/20/16 11:12 B-Natriuretic Peptide 521 H - EKG EKG results: interpreted by ERMD - Impressions EKG: Atrial fibrillation with a rate of 96, nonspecific ST-T wave changes, normal axis. - Diagnostic Findings Procedure: Chest x-ray: image reviewed by me (Increased pulmonary markings bilaterally.) Disposition Clinical Impression: Atrial fibrillation, Congestive heart failure, Bladder tumor, Dyspnea Case discussed with: patient Disposition: Still a Patient Condition: Stable
--- NOTE | 2016-06-20 09:46 | EKG Report ---
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
[2016-06-20] MEDS ORDERED: LEVALBUTEROL 1.25 MG/3 ML NEB RESP TX STA (09:50)
[2016-06-20] MEDS ORDERED: ONDANSETRON 4 MG/2 ML VIAL ONE (09:56)
[2016-06-20] MEDS ORDERED: NITROGLYCERIN 2% OINT 1 INCH/GM PACK TOP ONE (09:56)
[2016-06-20] MEDS ORDERED: FUROSEMIDE 100 MG/10 ML VIAL ONE (09:56)
[2016-06-20 10:08] LABS: Basophils # 0.1 10*3/uL (0.0-0.2); Basophils % 0.6 % (0.0-0.8); Eosinophils # 0.1 10*3/uL (0.0-0.87); Hematocrit 38.7 VOL% (35.7-47.0); Hemoglobin 11.3 GM/DL (12.0-16.0); Immature Granulocytes % 0.3 %; Immature Granulocytes Absolute 0.03 #; Lymphocytes # 1.5 10*3/uL (1.4-4.0); Lymphocytes % 17.2 % (21.3-54.2); Mean Corpuscular HGB Conc 29.2 GM/DL (32-36); Mean Corpuscular Hemoglobin 22 PG (27-34); Mean Corpuscular Volume 73.9 FL (87-102); Mean Platelet Volume 10.1 FL (9.6-12.0); Monocytes # 0.8 10*3/uL (0.11-0.8); Monocytes % 8.5 % (1.7-12.7); Neutrophils # 6.4 10*3/uL (1.4-7.4); Neutrophils % 72.4 % (38.7-73.9); Platelet Count 286 T/CUMM (130-400); Red Blood Count 5.24 MC/CUMM (3.8-5.5); Red Cell Distribution Width 17.3 % (9.3-17.3); White Blood Count 8.9 T/CUMM (4-12)
[2016-06-20 10:10] LABS: PT Patient Result 10.9 SECS
--- NOTE | 2016-06-20 10:19 | XRay Report ---
Exam: Chest 2 views Date: June 20, 2016 at 10:02 AM Comparison: Chest 2 views June 19, 2016 Reason: Shortness of breath Findings: The cardiac silhouette is again mildly enlarged, and the thoracic aorta is tortuous with calcified plaque. The interstitial markings are diffusely prominent, especially at the lower lung zones. This is most consistent with pulmonary edema, but other considerations include pneumonia. No pneumothorax is identified, but there is mild bilateral pleural fluid. The osseous structures appear stable. Impression: 1. Mild cardiomegaly. 2. The interstitial markings are diffusely prominent. This is concerning for pulmonary edema. There is also mild bilateral pleural fluid. PROCEDURE INTERPRETED AT [facility] DEPARTMENT OF RADIOLOGY Final Report Signed by: Dr. Gregorio Doherty
[2016-06-20 10:23] LABS: Alanine Aminotransferase 32 U/L (13-56); Albumin 3.1 G/DL (3.4-5.0); Alkaline Phosphatase 99 U/L (45-117); Aspartate Amino Transferase 19 U/L (0-37); Blood Urea Nitrogen 13 MG/DL (7-18); Calcium 8.9 MG/DL (8.5-10.1); Glucose 122 MG/DL (74-106); Magnesium 2.2 MG/DL (1.8-2.4); Potassium 4.4 MMOL/L (3.5-5.1); Sodium 136 MMOL/L (136-145); Total Protein 7.3 G/DL (6.4-8.3); Troponin I Only < 0.015 NG/ML (0.00-0.045)
[2016-06-20] MEDS ORDERED: DEXTROSE 50% 25 GM/50 ML VIAL IV PRN (13:07)
[2016-06-20] MEDS ORDERED: ACETAMINOPHEN 325 MG TABLET PO PRN (13:07)
[2016-06-20] MEDS ORDERED: MORPHINE 2 MG/1 ML SYRINGE IV PRN (13:07)
[2016-06-20] MEDS ORDERED: GLUCAGON 1 MG VIAL IM PRN (13:07)
[2016-06-20] MEDS ORDERED: SODIUM CHLORIDE 0.9% 1,000 ML IV SCH (13:07)
[2016-06-20] MEDS ORDERED: ONDANSETRON 4 MG/2 ML VIAL IV PRN (13:07)
--- NOTE | 2016-06-20 13:20 | EKG Report ---
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
[2016-06-20] MEDS: INSULIN LISPRO 100 UNIT/ML SUBCUT SCH ×2 (15:56→21:37)
--- NOTE | 2016-06-20 16:03 | Cardiology Consult Note ---
Assessment and Plan - Time spent with patient Time spent with patient: Greater than 30 minutes (1) Atrial fibrillation with RVR Status: Chronic Assessment and plan: See plan of care listed below Current Visit: No (2) Medical non-compliance Status: Chronic Assessment and plan: See plan of care listed below Current Visit: No (3) Hypertension Status: Chronic Assessment and plan: See plan of care listed below Current Visit: No (4) Obesity (BMI 30.0-34.9) Status: Chronic Assessment and plan: See plan of care listed below Current Visit: No (5) COPD (chronic obstructive pulmonary disease) Status: Chronic Current Visit: No (6) Congestive heart failure Status: Acute Assessment and plan: See plan of care listed below Current Visit: Yes Qualifiers: Congestive heart failure type: diastolic Congestive heart failure chronicity: acute Qualified Code(s): I50.31 - Acute diastolic (congestive) heart failure History of Present Illness - Data of Consult Patient: known to practice within the last 3 years Consult date: 06/20/16 Requesting Physician: Jason Leong - Consult Narrative Reason for consult: acute diastolic CHF, NYHA Class IV 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 RICHARD Ms. Yoon, 70WF, has risk factors significant for: hypertension, obesity, remote tobaccoism (quit 16 years ago), COPD. History of paroxysmal atrial fibrillation, SVT and known abdominal aortic aneurysm. Recently diagnosed with bladder cancer during her last admission and is scheduled to undergo surgery by Dr. Negro Zuñiga June 26, 2016. Patient presented to the emergency department at [facility] for evaluation of severe shortness of breath with exertion and now at rest. She had begun to swell since recent discharge June 03, 2016. She quit taking her Lasix as she believes she was instructed not to resume. She has been swelling all over and more most recently experiencing PND. She has felt her heart racing. In the emergency department, she was given IV Lasix and has diuresed a significant amount in a short period of time. At this time she states she is breathing better though she is still tachypneic at rest. Patient was recently hospitalized mid May, with shortness of breath. She was found to be in atrial fibrillation with rapid ventricular response. She underwent echocardiogram which revealed an ejection fraction of 50% without significant valvular abnormality. At that time, she was started on amiodarone and her rate came under better control. In the past, she had been taking Coumadin but she quit taking Coumadin approximately 6 months prior to this arrival because she felt as if she did not need it. While she was hospitalized during this last admission, she was given 1 dose of Xarelto. She then began to experience significant hematuria. Dr. Negro Zuñiga was consulted. She eventually underwent cystoscopy and was diagnosed with bladder cancer. For this reason, she was not discharged home on an aspirin or anticoagulation. She denies chest pain, heaviness or tightness. Cardiac biomarkers are negative. She has no known history of coronary artery disease or [place]. She has never had cardiac catheterization. She was recently seen by Dr. Forde in clinic. Because of the significant upcoming bladder surgery, Dr. Forde felt as if he would further work up any cardiac conditions after her bladder surgery. Globulin is elevated, albumin is low. Will order a multiple myeloma profile ASSESSMENT/PLAN: 1. ACUTE DIASTOLIC CHF, NYHA CLASS IV - likely related to her atrial fibrillation with rapid ventricular response. I suspect, she has had poor rate control since discharge leading to her fluid accumulation. We will continue with diuresis, adjust medications for better rate control. 2. ATRIAL FIBRILLATION WITH RVR - adjust meds for better rate control. Unfortunately, she is not a candidate for anticoagulation due to bladder cancer and recent severe hematuria. 3. HYPERTENSION - adjust medications accordingly during the hospital stay 4. BLADDER CANCER - continue current plan of care 5. COPD - continue current plan of care CC: Jason Leong, DO - Home Medications and Allergies Home Medications: Home Medications Medication Instructions Recorded Confirmed Type Nystatin [Nystatin Oint] 1 applic TOP BID PRN 06/04/16 06/20/16 History Metoprolol Tartrate Tab [Lopressor 100 mg PO BID #60 tablet 06/07/16 06/20/16 Rx Tab] Aspirin 81 mg PO QAM 06/19/16 06/20/16 History Amiodarone Tab [Cordarone Tab] 400 mg PO BID 06/20/16 06/20/16 History Allergies/Adverse Reactions: Allergies Allergy/AdvReac Type Severity Reaction Status Date / Time iodine Allergy ITCHING Verified 06/19/16 14:00 Review of systems: REVIEW OF SYSTEMS: - Constitutional Constitutional: Present: Fatigue. Absent: syncope, anorexia, night sweats - EENT Eyes: Absent: blurry vision, loss of vision, diplopia Ears: Absent: decreased hearing, ear pain, ear discharge - Cardiovascular Cardiovascular: Denies chest pain with exertion. Frequent palpitations. Bilateral lower extremity edema. Absent: chest pain with deep breath, claudication - Respiratory Respiratory: Present: SINGH,, dyspnea at rest. Orthopnea/PND cough. Absent: wheezing, hemoptysis, change in phlegm color - Gastrointestinal Gastrointestinal: Denies constipation. Absent: abdominal pain, hematemesis, hematochezia, melena, change in bowel habits, nausea - Genitourinary Genitourinary: Absent: difficulty urinating, dysuria, urinary hesitancy, flank pain - Musculoskeletal Musculoskeletal: Present: Chronic back pain Absent: joint swelling, muscle cramps, muscle weakness - Neurological Neurological: Present: normal gait without frequent falls. Absent: dizziness, hemiparesis - Psychiatric Psychiatric: Absent: anxiety, depression, difficulty concentrating - Endocrine Endocrine: Present: fatigue. Absent: cold intolerance, heat intolerance, polyuria, polyphagia, polydipsia - Hematologic/Lymphatic Hematologic/Lymphatic: Present: easy bruising. Absent: easy bleeding -Integumentary Integumentary: Absent: lesions, rashes, skin breakdown Medical,Surgical,& Family Hx - Medical History Cardio: History of: Cardiac Dysrhythmia (AFIB), Hypertension, Cardiovascular Problems (DR FORDE. SAW IN HOSPITAL 2 WEEKS AGO. AORTIC ANEURYSM.) No history of: CAD, [place] Psychological: History of: Depression Neurology: History of: Cerebrovascular Accident (RT EAR AFFECTED) No history of: Seizures HEENT: History of: Ear Problem (RT EAR [place]), Eye Problem (READING GLASSES), Dental Problems (UPPER DENTURE) Respiratory: No history of: Respiratory Problems (SOB. PT USING HUSBANDS O2. FLU VAC-NO; PNEU VAC- NO.) Genitourinary: History of: Bladder Problem (TUMOR) Gastrointestinal: History of: GERD (PAST HX.), Hemorrhoids, Polyps (REMOVED) Musculoskeletal: History of: Back/Neck Problems (LOWER BACK PAIN.), Musculoskeletal Problems (CURVATURE OF SPINE.) - Surgical History Abdominal Surgeries: Surgical HX of: Abdominal Surgery (AAA repair), Appendectomy, Colonoscopy, EGD Reproductive Surgeries: Surgical HX of;: Cystoscopy (2 weeks ago), Gynecologic Surgery, Hysterectomy Orthopedic Surgeries: Surgical HX of;: Orthopedic Surgery (TIBIA FX SURGERY.) - Social History Smoking Status: Former smoker Have you smoked in the last 12 months: No Frequency of Alcohol Use: None Type of Drug Use: None Marital Status: Lives With:: Spouse Functional capacity: independent ambulation Physical Examination Vital Signs Temp Pulse Resp BP Pulse Ox 98.5 F 97 H 24 149/104 96 06/20/16 09:13 06/20/16 09:13 06/20/16 09:13 06/20/16 09:13 06/20/16 09:13 General: [Mild respiratory distress. Head of bed at 45] [Pleasant and cooperative. ] HEENT: [PERRL, normocephalic, atraumatic. Mucous membranes moist. No jaundice noted. Conjunctiva moist and clear, sclerae anicteric] Neck: Unable to assess for JVD due to habitus. No thyromegaly or lymphadenopathy noted. No carotid bruit appreciated Cardiac: [Irregularly irregular rhythm, fast rate.] [No murmur rub or gallop.] Lungs: [Inspiratory crackles noted posteriorly in the bases midway up both lung gonzales. Tachypneic at rest] Oxygen in use via nasal cannula Abdomen: Soft, bowel sounds normoactive. Nontender and nondistended. No abdominal bruit or thrill noted. No masses noted. Musculoskeletal: No fluid collection. Decreased range of motion is noted. Extremities: No clubbing, cyanosis noted. [1+ bilateral lower extremity edema] Upper extremity pulses 2+. Lower extremity pulses 2+. Capillary refill less than 3 seconds. Skin: No unusual lesions or rashes. No skin breakdown appreciated. Neuro: Awake, alert and oriented 3. Moves all extremities well without hemiparesis or paralysis. No essential tremor is appreciated. Result/EKG - Labs CBC & BMP: 06/20/16 09:33 06/20/16 09:33 Lab Results: I have reviewed the past 24 hour labs Labs: Laboratory Results - last 24 hr 06/20/16 06/20/16 13:13 15:11 POC Glucose 136 H Troponin I < 0.015 - Diagnostic Findings Procedure: Chest x-ray: report reviewed by me - EKG EKG results: interpreted by me EKG shows: atrial fibrillation (With rapid ventricular response)
[2016-06-20] MEDS ORDERED: NYSTATIN OINT 15 GM TUBE TOP PRN (16:09)
--- NOTE | 2016-06-20 16:15 | EKG Report ---
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
[2016-06-20] MEDS: DIGOXIN 0.5 MG/2 ML AMP IV SCH (16:52)
[2016-06-20] MEDS: ENOXAPARIN 40 MG/0.4 ML SYRINGE SUBCUT SCH (16:52)
[2016-06-20 17:22] LABS: Apearance,Urine CLEAR (Clear); Bacteria,Urine Occasional /HPF (Few); Bilirubin,Urine Negative (Negative); Blood, Urine Large mg/dL (Negative); Glucose,Urine (UA) Negative (Negative); Ketones,Urine Negative (Negative); Mucus,Urine Occasional /LPF (Occasional); Nitrite,Urine Negative (Negative); Protein,Urine Negative; RBC,Urine 318 /HPF (0-4); Total Protein,Urine Random 29 MG/DL; Urine Color Yellow (Yellow); Urine Specific Gravity 1.004 (1.001-1.035); Urine Urobilinogen < 2.0 EU/DL (0.2-1.0); WBC,Urine 57 /HPF (0-6)
--- NOTE | 2016-06-20 19:46 | Family Practice History&Phys ---
Assessment and Plan (1) Congestive heart failure Status: Acute Assessment and plan: Patient admitted to the emergency room with congestive heart failure. She has had excellent diuresis. Being followed by cardiology. We will plan to fine- tune medications. Current Visit: Yes Qualifiers: Congestive heart failure type: diastolic Congestive heart failure chronicity: acute Qualified Code(s): I50.31 - Acute diastolic (congestive) heart failure (2) Atrial fibrillation Status: Chronic Assessment and plan: Patient in chronic atrial fibrillation rate controlled Current Visit: Yes (3) History of CVA Status: Chronic Assessment and plan: Stable at present Current Visit: Yes (4) Bladder tumor Status: Acute Assessment and plan: History of bladder cancer scheduled for surgery next week Current Visit: Yes (5) Hypertension Status: Chronic Assessment and plan: Blood pressure excessively elevated this a.m. but stable at present Current Visit: No History of Present Illness Chief complaint: Dyspnea and weakness History of present illness: Ms. Yoon is a 70 year old female Patient is a 70-year-old white female patient of Dr. Amanda Matta who presented to emergency room with onset of severe dyspnea. Patient states the symptoms had progressed over the last 2 days but will much worse this a.m. Patient states that she was unable to ambulate due to the extreme dyspnea. States that dyspnea was similar to symptoms he has had in the past with congestive heart failure. Family took blood pressure and apparently was excessively elevated. 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 She is scheduled to have bladder surgery next week. In view of degree of symptoms she was seen in emergency room and found significant congestive heart failure. Patient has chronic atrial fibrillation. In view of history she was admitted for further evaluation and therapy Home Medications Medication Instructions Recorded Confirmed Type Nystatin [Nystatin Oint] 1 applic TOP BID PRN 06/04/16 06/20/16 History Metoprolol Tartrate Tab [Lopressor 100 mg PO BID #60 tablet 06/07/16 06/20/16 Rx Tab] Aspirin 81 mg PO QAM 06/19/16 06/20/16 History Amiodarone Tab [Cordarone Tab] 400 mg PO BID 06/20/16 06/20/16 History Allergies Allergy/AdvReac Type Severity Reaction Status Date / Time iodine Allergy ITCHING Verified 06/19/16 14:00 Medical,Surgical,& Family Hx - Medical History Cardio: History of: Cardiac Dysrhythmia (AFIB), Hypertension, Cardiovascular Problems (DR FORDE. SAW IN HOSPITAL 2 WEEKS AGO. AORTIC ANEURYSM.) No history of: CAD, [place] Psychological: History of: Depression Neurology: History of: Cerebrovascular Accident (RT EAR AFFECTED) No history of: Seizures HEENT: History of: Ear Problem (RT EAR [place]), Eye Problem (READING GLASSES), Dental Problems (UPPER DENTURE) Respiratory: No history of: Respiratory Problems (SOB. PT USING HUSBANDS O2. FLU VAC-NO; PNEU VAC- NO.) Genitourinary: History of: Bladder Problem (TUMOR) Gastrointestinal: History of: GERD (PAST HX.), Hemorrhoids, Polyps (REMOVED) Musculoskeletal: History of: Back/Neck Problems (LOWER BACK PAIN.), Musculoskeletal Problems (CURVATURE OF SPINE.) - Surgical History Abdominal Surgeries: Surgical HX of: Abdominal Surgery (AAA repair), Appendectomy, Colonoscopy, EGD Reproductive Surgeries: Surgical HX of;: Cystoscopy (2 weeks ago), Gynecologic Surgery, Hysterectomy Orthopedic Surgeries: Surgical HX of;: Orthopedic Surgery (TIBIA FX SURGERY.) - Family History Family History: Reports;: Family Cancer, Family Heart Disease - Social History Smoking Status: Former smoker Frequency of Alcohol Use: None Type of Drug Use: None Marital Status: Lives With:: Spouse Functional capacity: independent ambulation Exam - Constitutional Vitals: Period Temp Pulse Resp BP Sys/Shepard Pulse Ox Last 24 Hr 98.0 F-98.9 F 84-92 18-20 104-126/61-91 92-98 General appearance: mild distress - Head Head exam: Present: normal inspection - Eye Pupils: Present: ANDREW - ENT ENT exam: Present: normal exam - Neck Neck exam: Present: normal inspection, other (Positive jugular venous distention ) - Respiratory Respiratory exam: Present: rales - Cardiovascular Cardiovascular exam: Present: tachycardia, other (Irregular irregularity consistent with atrial fibrillation) - GI/Abdominal GI/Abdominal exam: Present: normal bowel sounds, soft - Extremities Exam Extremities exam: Present: normal inspection - Back Exam Back exam: Present: normal inspection - Neurological Exam Neurological exam: Present: alert - Psychiatric Psychiatric exam: Present: normal affect - Skin Skin exam: Present: normal color Results - Labs CBC & BMP: 06/20/16 09:33 06/20/16 09:33
[2016-06-20] MEDS: METOPROLOL TARTRATE 100 MG TABLET PO SCH (21:36)
[2016-06-20] MEDS: ASCORBIC ACID 500 MG TABLET PO SCH (21:36)
[2016-06-20] MEDS: DOCUSATE SODIUM 100 MG CAPSULE PO SCH (21:36)
[2016-06-21 05:16] LABS: Calcium 8.3 MG/DL (8.5-10.1); Magnesium 2.2 MG/DL (1.8-2.4); Osmolality,Calculated 278.4 MOS/KG (273-304); Potassium 3.9 MMOL/L (3.5-5.1)
[2016-06-21 05:18] LABS: Random Urine Protein (Bench) 29 MG/DL (<11.9)
[2016-06-21 05:18] LABS: Total Protein (Chem) 7.2 G/DL (6.4-8.2)
[2016-06-21 05:39] LABS: Basophils # 0.1 10*3/uL (0.0-0.2); Basophils % 0.7 % (0.0-0.8); Eosinophils # 0.1 10*3/uL (0.0-0.87); Eosinophils % 1.9 % (0.00-10.9); Hematocrit 32.6 VOL% (35.7-47.0); Hemoglobin 9.7 GM/DL (12.0-16.0); Immature Granulocytes % 0.4 %; Immature Granulocytes Absolute 0.03 #; Lymphocytes # 2.2 10*3/uL (1.4-4.0); Lymphocytes % 31.6 % (21.3-54.2); Mean Corpuscular HGB Conc 29.8 GM/DL (32-36); Mean Corpuscular Hemoglobin 22 PG (27-34); Mean Corpuscular Volume 72.4 FL (87-102); Mean Platelet Volume 10.4 FL (9.6-12.0); Monocytes # 0.7 10*3/uL (0.11-0.8); Monocytes % 10.4 % (1.7-12.7); Neutrophils # 3.8 10*3/uL (1.4-7.4); Platelet Count 230 T/CUMM (130-400); Red Cell Distribution Width 17.4 % (9.3-17.3); White Blood Count 6.9 T/CUMM (4-12)
[2016-06-21] MEDS: FUROSEMIDE 40 MG/4 ML VIAL IV SCH ×2 (09:19→16:31)
[2016-06-21] MEDS: INSULIN LISPRO 100 UNIT/ML SUBCUT SCH ×4 (09:19→20:52)
[2016-06-21] MEDS: PANTOPRAZOLE 40 MG TABLET PO SCH (09:20)
[2016-06-21] MEDS: ASCORBIC ACID 500 MG TABLET PO SCH ×2 (09:20→20:51)
[2016-06-21] MEDS: METOPROLOL TARTRATE 100 MG TABLET PO SCH ×2 (09:20→20:51)
[2016-06-21] MEDS: DOCUSATE SODIUM 100 MG CAPSULE PO SCH ×2 (09:20→20:52)
[2016-06-21] MEDS: DIGOXIN 0.5 MG/2 ML AMP IV SCH (09:25)
--- NOTE | 2016-06-21 10:47 | Cardiology Progress Note ---
Assessment and Plan (1) Atrial fibrillation with RVR Status: Chronic Assessment and plan: See plan of care listed below Current Visit: No (2) Medical non-compliance Status: Chronic Assessment and plan: See plan of care listed below Current Visit: No (3) Hypertension Status: Chronic Assessment and plan: See plan of care listed below Current Visit: No (4) Obesity (BMI 30.0-34.9) Status: Chronic Assessment and plan: See plan of care listed below Current Visit: No (5) COPD (chronic obstructive pulmonary disease) Status: Chronic Current Visit: No (6) Congestive heart failure Status: Acute Assessment and plan: See plan of care listed below Current Visit: Yes Qualifiers: Congestive heart failure type: diastolic Congestive heart failure chronicity: acute Qualified Code(s): I50.31 - Acute diastolic (congestive) heart failure Cardiology - PN: Subj Interval history: 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 RICHARD Ms. Yoon, 70WF, has risk factors significant for: hypertension, obesity, remote tobaccoism (quit 16 years ago), COPD. History of paroxysmal atrial fibrillation, SVT and known abdominal aortic aneurysm. Recently diagnosed with bladder cancer during her last admission and is scheduled to undergo surgery by Dr. Negro Zuñiga June 26, 2016. Patient presented to the emergency department at [facility] for evaluation of severe shortness of breath with exertion and now at rest. She had begun to swell since recent discharge June 03, 2016. She quit taking her Lasix as she believes she was instructed not to resume. She has been swelling all over and more most recently experiencing PND. She has felt her heart racing. In the emergency department, she was given IV Lasix and has diuresed a significant amount in a short period of time. At this time she states she is breathing better though she is still tachypneic at rest. SUMMARY: Patient presented to ER June 20, 2016 in acute diastolic heart failure. She was found to be in atrial fibrillation with rapid ventricular response. IV digoxin was initiated and, as she diuresed, heart rate, under better control. Patient had stopped taking her Lasix at home. I suspect her heart rate was poorly controlled at home as well. She was first diagnosed with atrial fibrillation mid May 2016. She was given 1 dose of Xarelto and experienced extreme hematuria. She was subsequently diagnosed with bladder cancer and is scheduled to undergo surgical procedure June 26, [address] Negro Zuñiga. Patient was discharged home in atrial fibrillation, rate controlled, on Amiodarone. Globulin is elevated, albumin is low. Will order a multiple myeloma profile JUNE 21, 2016: Patient has dramatically improved overnight. She is not wearing oxygen at this point. She is no longer tachypneic. She is responded well to Lasix. Amiodarone was discontinued yesterday as it was felt the amiodarone was unsuccessful in treatment. IV digoxin was initiated and her heart rate is 70- 80 bpm, atrial fib. She continues to take metoprolol tartrate 100 mg orally twice daily. Again, she is not a candidate for formal anticoagulation due to her severe hematuria on Xarelto, upcoming bladder surgery for bladder cancer. Hopefully, in her future, we can rechallenge her with formal anticoagulation for stroke prevention. She has been on Lovenox 40 mg daily, initiated in the ER and she has had no hematuria. Transition to oral lasix in the morning. See results of urine and serum PEP. CBC daily to monitor anemia. Will transition Digoxin to oral dosing starting tomorrow. ASSESSMENT/PLAN: 1. ACUTE DIASTOLIC CHF, NYHA CLASS IV - likely related to her atrial fibrillation with rapid ventricular response. I suspect, she has had poor rate control since discharge leading to her fluid accumulation. We will continue with diuresis, adjust medications for better rate control. 2. ATRIAL FIBRILLATION WITH RVR - rate controlled with beta-barbara and digoxin. Unfortunately, she is not a candidate for anticoagulation due to bladder cancer and recent severe hematuria. 3. HYPERTENSION - adjust medications accordingly during the hospital stay 4. BLADDER CANCER - continue current plan of care 5. COPD - continue current plan of care 6. UTI - defer treatment to Attending. Exam (Progress Note) - Constitutional Vitals: Period Temp Pulse Resp BP Sys/Shepard Pulse Ox Last 24 Hr 98.0 F-99.0 F 70-103 16-20 104-131/61-91 92-98 Exam: General: [Appears well with no apparent distress.] [Pleasant and cooperative. ] [Appears comfortable.] HEENT: [PERRL, normocephalic, atraumatic. Mucous membranes moist. No jaundice noted. Conjunctiva moist and clear, sclerae anicteric] Neck: No JVD/HJR, no thyromegaly or lymphadenopathy noted. No carotid bruit appreciated Cardiac: [Irregularly irregular rhythm, controlled right.] [No murmur rub or gallop.] Lungs: [Respiratory crackles noted posteriorly in the bases. Using oxygen only intermittently at this time Abdomen: Soft, bowel sounds normoactive. Nontender and nondistended. No abdominal bruit or thrill noted. No masses noted. Musculoskeletal: No fluid collection. Decreased range of motion is noted. Extremities: No clubbing, cyanosis noted. [ No edema noted.] Upper extremity pulses 2+. Lower extremity pulses 2+. Capillary refill less than 3 seconds. Skin: No unusual lesions or rashes. No skin breakdown appreciated. Neuro: Awake, alert and oriented 3. Moves all extremities well without hemiparesis or paralysis. No essential tremor is appreciated. Result/EKG - Labs CBC & BMP: 06/21/16 04:15 06/21/16 04:15 Lab Results: I have reviewed the past 24 hour labs Labs: Laboratory Results - last 24 hr 06/20/16 06/20/16 06/20/16 13:13 15:11 17:00 WBC RBC Hgb Hct MCV MCH MCHC RDW Plt Count MPV Neut % (Auto) Lymph % (Auto) [place] % (Auto) Eos % (Auto) Baso % (Auto) Neut # (Auto) Lymph # (Auto) [place] # (Auto) Eos # (Auto) Baso # (Auto) Immature Gran % Nucleated RBC % Immature Gran # Nucleated RBCs # Sodium Potassium Chloride Carbon Dioxide Anion Gap BUN Creatinine GFR Calculation BUN/Creatinine Ratio Glucose POC Glucose 136 H Calculated Osmolality Calcium Magnesium Troponin I < 0.015 Total Protein Urine Color Urine Appearance Urine pH Ur Specific [place] Urine Protein Urine Glucose (UA) Urine Ketones Urine Blood Urine Nitrate Urine Bilirubin Urine Urobilinogen Urine Leukocytes Urine RBC Urine WBC Urine WBC Clumps Urine Bacteria Urine Mucus Ur Culture Indicated? Ur Random Albumin Ur Random Albumin % U Random Total Protein 29 Urine PEP Interpret Serum Total Protein PEP 06/20/16 06/20/16 06/20/16 17:00 17:00 19:54 WBC RBC Hgb Hct MCV MCH MCHC RDW Plt Count MPV Neut % (Auto) Lymph % (Auto) [place] % (Auto) Eos % (Auto) Baso % (Auto) Neut # (Auto) Lymph # (Auto) [place] # (Auto) Eos # (Auto) Baso # (Auto) Immature Gran % Nucleated RBC % Immature Gran # Nucleated RBCs # Sodium Potassium Chloride Carbon Dioxide Anion Gap BUN Creatinine GFR Calculation BUN/Creatinine Ratio Glucose POC Glucose 153 H Calculated Osmolality Calcium Magnesium Troponin I Total Protein Urine Color Yellow Urine Appearance Clear Urine pH 5.0 Ur Specific [place] 1.004 Urine Protein Negative Urine Glucose (UA) Negative Urine Ketones Negative Urine Blood Large Urine Nitrate Negative Urine Bilirubin Negative Urine Urobilinogen < 2.0 H Urine Leukocytes Moderate H Urine RBC 318 Urine WBC 57 Urine WBC Clumps Occasional Urine Bacteria Occasional Urine Mucus Occasional Ur Culture Indicated? Results to follow Ur Random Albumin 29.0 Ur Random Albumin % 100.0 U Random Total Protein 29 H Urine PEP Interpret See comment Serum Total Protein PEP 06/20/16 06/20/16 06/21/16 Unknown Unknown 04:15 WBC 6.9 RBC 4.50 Hgb 9.7 L Hct 32.6 L MCV 72.4 L MCH 22 L MCHC 29.8 L RDW 17.4 H Plt Count 230 MPV 10.4 Neut % (Auto) 55.0 Lymph % (Auto) 31.6 [place] % (Auto) 10.4 Eos % (Auto) 1.9 Baso % (Auto) 0.7 Neut # (Auto) 3.8 Lymph # (Auto) 2.2 [place] # (Auto) 0.7 Eos # (Auto) 0.1 Baso # (Auto) 0.1 Immature Gran % 0.4 Nucleated RBC % 0.0 Immature Gran # 0.03 Nucleated RBCs # 0.00 Sodium Potassium Chloride Carbon Dioxide Anion Gap BUN Creatinine GFR Calculation BUN/Creatinine Ratio Glucose POC Glucose Calculated Osmolality Calcium Magnesium Troponin I Total Protein 7.2 Urine Color Urine Appearance Urine pH Ur Specific [place] Urine Protein Urine Glucose (UA) Urine Ketones Urine Blood Urine Nitrate Urine Bilirubin Urine Urobilinogen Urine Leukocytes Urine RBC Urine WBC Urine WBC Clumps Urine Bacteria Urine Mucus Ur Culture Indicated? Ur Random Albumin Ur Random Albumin % U Random Total Protein Urine PEP Interpret Serum Total Protein PEP 7.2 06/21/16 06/21/16 04:15 08:01 WBC RBC Hgb Hct MCV MCH MCHC RDW Plt Count MPV Neut % (Auto) Lymph % (Auto) [place] % (Auto) Eos % (Auto) Baso % (Auto) Neut # (Auto) Lymph # (Auto) [place] # (Auto) Eos # (Auto) Baso # (Auto) Immature Gran % Nucleated RBC % Immature Gran # Nucleated RBCs # Sodium 140 Potassium 3.9 Chloride 99 Carbon Dioxide 35 H Anion Gap 9.9 BUN 13 Creatinine 0.90 GFR Calculation 78 BUN/Creatinine Ratio 14.00 Glucose 105 POC Glucose 219 H Calculated Osmolality 278.4 Calcium 8.3 L Magnesium 2.2 Troponin I Total Protein Urine Color Urine Appearance Urine pH Ur Specific [place] Urine Protein Urine Glucose (UA) Urine Ketones Urine Blood Urine Nitrate Urine Bilirubin Urine Urobilinogen Urine Leukocytes Urine RBC Urine WBC Urine WBC Clumps Urine Bacteria Urine Mucus Ur Culture Indicated? Ur Random Albumin Ur Random Albumin % U Random Total Protein Urine PEP Interpret Serum Total Protein PEP - EKG EKG results: interpreted by me EKG shows: atrial fibrillation
[2016-06-21 11:20] LABS: Albumin (SPE) 3.5 G/DL (3.2-5.3); Albumin (SPE) Rel % 49.1 %; Alpha 1 (SPE) 0.3 G/DL (0.1-0.4); Alpha 1 (SPE) Rel % 3.5 %; Alpha 2 (SPE) 0.9 G/DL (0.4-1.0); Alpha 2 (SPE) Rel % 12.2 %; Beta (SPE) 1.5 G/DL (0.5-1.1); Beta (SPE) Rel % 21.7 %; Gamma (SPE) Rel % 13.5 %
--- NOTE | 2016-06-21 12:27 | Family Practice Progress Note ---
Family Practice - PN: Subj Interval history: Patient has responded well. Denies any shortness of breath chest pain or other complaints this a.m.. Has had excellent diuresis. Her atrial fibrillation rate is controlled at present. Cardiology had stopped her amiodarone and start her on digoxin. They plan to start her on oral digoxin in a.m.. Patient denies any new complaints. Her physical examination is stable other than the atrial fibrillation. We will continue present treatment plan Exam (Progress Note) - Constitutional Vitals: Period Temp Pulse Resp BP Sys/Shepard Pulse Ox Last 24 Hr 96.0 F-99.0 F 70-106 16-20 104-131/61-78 92-97 Results - Labs CBC & BMP: 06/21/16 04:15 06/21/16 04:15 Assessment and Plan (1) Congestive heart failure Status: Acute Assessment and plan: Patient admitted to the emergency room with congestive heart failure. She has had excellent diuresis. Being followed by cardiology. We will plan to fine- tune medications. Current Visit: Yes Qualifiers: Congestive heart failure type: diastolic Congestive heart failure chronicity: acute Qualified Code(s): I50.31 - Acute diastolic (congestive) heart failure (2) Atrial fibrillation Status: Chronic Assessment and plan: Patient in chronic atrial fibrillation rate controlled Current Visit: Yes (3) History of CVA Status: Chronic Assessment and plan: Stable at present Current Visit: Yes (4) Bladder tumor Status: Acute Assessment and plan: History of bladder cancer scheduled for surgery next week Current Visit: Yes (5) Hypertension Status: Chronic Assessment and plan: Blood pressure excessively elevated this a.m. but stable at present Current Visit: No
[2016-06-21] MEDS: ENOXAPARIN 40 MG/0.4 ML SYRINGE SUBCUT SCH (13:03)
[2016-06-22 04:32] LABS: Basophils % 0.6 % (0.0-0.8); Eosinophils # 0.2 10*3/uL (0.0-0.87); Eosinophils % 2.2 % (0.00-10.9); Hematocrit 34.6 VOL% (35.7-47.0); Hemoglobin 10.2 GM/DL (12.0-16.0); Immature Granulocytes % 0.1 %; Immature Granulocytes Absolute 0.01 #; Lymphocytes # 2.8 10*3/uL (1.4-4.0); Lymphocytes % 41.1 % (21.3-54.2); Mean Corpuscular HGB Conc 29.5 GM/DL (32-36); Mean Corpuscular Hemoglobin 21 PG (27-34); Mean Corpuscular Volume 72.2 FL (87-102); Mean Platelet Volume 10.2 FL (9.6-12.0); Monocytes # 0.8 10*3/uL (0.11-0.8); Monocytes % 11.9 % (1.7-12.7); Neutrophils % 44.1 % (38.7-73.9); Platelet Count 266 T/CUMM (130-400); Red Blood Count 4.79 MC/CUMM (3.8-5.5); Red Cell Distribution Width 17.3 % (9.3-17.3); White Blood Count 6.9 T/CUMM (4-12)
[2016-06-22 04:54] LABS: Calcium 8.5 MG/DL (8.5-10.1); Magnesium 2.3 MG/DL (1.8-2.4); Osmolality,Calculated 279.4 MOS/KG (273-304); Potassium 3.8 MMOL/L (3.5-5.1)
[2016-06-22 05:54] LABS: Elliptocytes 1+; Hypochromasia Slight; Platelet Estimate Normal
[2016-06-22] MEDS: INSULIN LISPRO 100 UNIT/ML SUBCUT SCH ×4 (09:03→21:14)
--- NOTE | 2016-06-22 09:39 | XRay Report ---
Exam: Chest 2 views Date: June 22, 2016 at 7:13 AM Comparison: Chest 2 views June 20, 2016 Reason: Shortness of breath Findings: The cardiac silhouette is again mildly enlarged, and the thoracic aorta is tortuous. The interstitial markings are minimally prominent, suggesting minimal pulmonary edema. There is also minimal right pleural fluid and possible trace left pleural fluid. No pneumothorax is identified. The osseous structures appear stable. Impression: There is suggestion of minimal pulmonary edema, but this has improved. PROCEDURE INTERPRETED AT [facility] DEPARTMENT OF RADIOLOGY Final Report Signed by: Dr. Gregorio Doherty
[2016-06-22] MEDS: FUROSEMIDE 40 MG TABLET PO SCH ×2 (10:43→18:09)
[2016-06-22] MEDS: PANTOPRAZOLE 40 MG TABLET PO SCH (10:43)
[2016-06-22] MEDS: DOCUSATE SODIUM 100 MG CAPSULE PO SCH ×2 (10:43→21:12)
[2016-06-22] MEDS: ASCORBIC ACID 500 MG TABLET PO SCH ×2 (10:43→21:12)
[2016-06-22] MEDS: FUROSEMIDE 40 MG/4 ML VIAL IV SCH (10:44)
[2016-06-22] MEDS: METOPROLOL TARTRATE 100 MG TABLET PO SCH ×2 (10:44→21:12)
--- NOTE | 2016-06-22 11:49 | Cardiology Progress Note ---
Assessment and Plan (1) Dyspnea Status: Acute Assessment and plan: The patient had acute on chronic congestive heart failure secondary to atrial fibrillation with rapid ventricular response and diastolic dysfunction. This has resolved with adjustment in her medication and diuresis. From my standpoint I think she can be discharged home on her current medical regimen. I would like for her to follow-up with her primary solution sales senior executive Dr. Forde in a couple of weeks. Current Visit: Yes (2) Atrial fibrillation Status: Chronic Assessment and plan: This is now well controlled after adjusting her rate control medications. Unfortunately she cannot get anticoagulation at this time secondary to her bladder tumor and hematuria. She is scheduled for cystoscopic surgery on this in the near future. 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 RICHARD Ms. Yoon, 70WF, has risk factors significant for: hypertension, obesity, remote tobaccoism (quit 16 years ago), COPD. History of paroxysmal atrial fibrillation, SVT and known abdominal aortic aneurysm. Recently diagnosed with bladder cancer during her last admission and is scheduled to undergo surgery by Dr. Negro Zuñiga June 26, 2016. Patient presented to the emergency department at [facility] for evaluation of severe shortness of breath with exertion and now at rest. She had begun to swell since recent discharge June 03, 2016. She quit taking her Lasix as she believes she was instructed not to resume. She has been swelling all over and more most recently experiencing PND. She has felt her heart racing. In the emergency department, she was given IV Lasix and has diuresed a significant amount in a short period of time. At this time she states she is breathing better though she is still tachypneic at rest. SUMMARY: Patient presented to ER June 20, 2016 in acute diastolic heart failure. She was found to be in atrial fibrillation with rapid ventricular response. IV digoxin was initiated and, as she diuresed, heart rate, under better control. Patient had stopped taking her Lasix at home. I suspect her heart rate was poorly controlled at home as well. She was first diagnosed with atrial fibrillation mid May 2016. She was given 1 dose of Xarelto and experienced extreme hematuria. She was subsequently diagnosed with bladder cancer and is scheduled to undergo surgical procedure June 26, [address] Negro Zuñiga. Patient was discharged home in atrial fibrillation, rate controlled, on Amiodarone. Globulin is elevated, albumin is low. Will order a multiple myeloma profile JUNE 21, 2016: Patient has dramatically improved overnight. She is not wearing oxygen at this point. She is no longer tachypneic. She is responded well to Lasix. Amiodarone was discontinued yesterday as it was felt the amiodarone was unsuccessful in treatment. IV digoxin was initiated and her heart rate is 70- 80 bpm, atrial fib. She continues to take metoprolol tartrate 100 mg orally twice daily. Again, she is not a candidate for formal anticoagulation due to her severe hematuria on Xarelto, upcoming bladder surgery for bladder cancer. Hopefully, in her future, we can rechallenge her with formal anticoagulation for stroke prevention. She has been on Lovenox 40 mg daily, initiated in the ER and she has had no hematuria. Transition to oral lasix in the morning. See results of urine and serum PEP. CBC daily to monitor anemia. Will transition Digoxin to oral dosing starting tomorrow. June 22, 2016: Patient is feeling back to normal. She is off of oxygen. She has no dyspnea or palpitation. She has had no angina. She denies any bleeding from her bladder. Patient is wanting to go home. I think that would be fine as she has been transferred to oral medications. I think I would leave off her amiodarone, and continue her inpatient medical regimen as an outpatient. Dr. Forde is her primary solution sales senior executive and we should arrange follow-up with him in a couple of weeks. ASSESSMENT/PLAN: 1. ACUTE DIASTOLIC CHF, NYHA CLASS IV - likely related to her atrial fibrillation with rapid ventricular response. This has resolved with diuresis and adjustment of her atrial fibrillation medications. 2. ATRIAL FIBRILLATION WITH RVR - rate is now well controlled with beta- barbara and digoxin. Unfortunately, she is not a candidate for anticoagulation due to bladder cancer and recent severe hematuria. 3. HYPERTENSION -this is much better since admission and medication adjustment 4. BLADDER CANCER - continue current plan of care 5. COPD - continue current plan of care 6. UTI - defer treatment to Attending. Exam (Progress Note) - Constitutional Vitals: Period Temp Pulse Resp BP Sys/Shepard Pulse Ox Last 24 Hr 96.0 F-99.5 F 69-106 18-20 104-125/57-85 90-95 Exam: General: Well-developed well-nourished and in no acute distress HEENT: Normocephalic, atraumatic Neck: Supple Neck, Midline Trachea Cardiac: Irregular Rhythm, No Murmur, no gallop, no rub Lungs: Grossly Normal Exam, Clear to Ascultation, No Wheeze, Rales, Rhonchi Neuro: Cranial Nerve 2-12 Intact, grossly normal Abdomen: Soft, Active Bowel Sounds, No Masses, No Pulsations/Bruits Skin: Normal color, no rash Extremities: No Clubbing, No Cyanosis, No Edema, Normal Upper Extr. Pulses Musculoskeletal: No acute abnormality noted Psychiatric: The patient is alert and oriented and does not appear to be anxious or depressed. Result/EKG - Labs CBC & BMP: 06/22/16 03:15 06/22/16 03:16 Lab Results: I have reviewed the past 24 hour labs Labs: Laboratory Results - last 24 hr 06/21/16 06/21/16 06/21/16 11:31 15:15 19:39 WBC RBC Hgb Hct MCV MCH MCHC RDW Plt Count MPV Neut % (Auto) Lymph % (Auto) [place] % (Auto) Eos % (Auto) Baso % (Auto) Neut # (Auto) Lymph # (Auto) [place] # (Auto) Eos # (Auto) Baso # (Auto) Immature Gran % Nucleated RBC % Immature Gran # Nucleated RBCs # Platelet Estimate Hypochromasia Poikilocytosis Elliptocytes Sodium Potassium Chloride Carbon Dioxide Anion Gap BUN Creatinine GFR Calculation BUN/Creatinine Ratio Glucose POC Glucose 94 133 H 137 H Calculated Osmolality Calcium Magnesium 06/22/16 06/22/16 06/22/16 03:15 03:16 08:14 WBC 6.9 RBC 4.79 Hgb 10.2 L Hct 34.6 L MCV 72.2 L MCH 21 L MCHC 29.5 L RDW 17.3 Plt Count 266 MPV 10.2 Neut % (Auto) 44.1 Lymph % (Auto) 41.1 [place] % (Auto) 11.9 Eos % (Auto) 2.2 Baso % (Auto) 0.6 Neut # (Auto) 3.0 Lymph # (Auto) 2.8 [place] # (Auto) 0.8 Eos # (Auto) 0.2 Baso # (Auto) 0.0 Immature Gran % 0.1 Nucleated RBC % 0.0 Immature Gran # 0.01 Nucleated RBCs # 0.00 Platelet Estimate Normal Hypochromasia Slight Poikilocytosis Elliptocytes 1+ Sodium 140 Potassium 3.8 Chloride 96 L Carbon Dioxide 35 H Anion Gap 12.8 BUN 14 Creatinine 0.90 GFR Calculation 78 BUN/Creatinine Ratio 15.00 Glucose 98 POC Glucose 112 H Calculated Osmolality 279.4 Calcium 8.5 Magnesium 2.3 - EKG EKG results: interpreted by me
--- NOTE | 2016-06-22 12:10 | Internal Med Progress Note ---
Assessment and Plan (1) Congestive heart failure Status: Acute Assessment and plan: 70-year-old female admitted to acute care * Acute congestive heart failure. Patient has diuresed well and is doing better. Will switch her to p.o. Lasix. Her heart failure was secondary to A. fib with rapid ventricular response and diastolic dysfunction * Atrial fibrillation. Controlled ventricular rate * History of bladder tumor. Patient is set up for surgery in the next few weeks * Hopefully home soon Current Visit: Yes Qualifiers: Congestive heart failure type: diastolic Congestive heart failure chronicity: acute Qualified Code(s): I50.31 - Acute diastolic (congestive) heart failure (2) Bladder tumor Status: Acute Current Visit: Yes (3) Atrial fibrillation Status: Chronic Current Visit: Yes (4) History of CVA Status: Chronic Current Visit: Yes Internal Medicine - PN: Subj Interval history: 70-year-old female with history of hypertension, A. fib, CVA, bladder tumor. She was admitted with acute shortness of breath. She is feeling better today. She has been diuresed. She denies any chest pain or shortness of breath. Exam (Progress Note) - Constitutional Vitals: Period Temp Pulse Resp BP Sys/Shepard Pulse Ox Last 24 Hr 96.7 F-99.5 F 69-101 18-20 104-122/57-85 90-95 General appearance: over weight - Head Head exam: Present: normal inspection - Eye Eye exam: Present: EOMI Pupils: Present: ANDREW - Neck Neck exam: Present: normal inspection - Respiratory Respiratory exam: Present: clear to auscultation bilaterally - Cardiovascular Cardiovascular exam: Present: irregular rhythm - GI/Abdominal GI/Abdominal exam: Present: normal bowel sounds, soft. Absent: tenderness - Extremities Exam Extremities exam: Present: normal inspection. Absent: edema Results - Labs CBC & BMP: 06/22/16 03:15 06/22/16 03:16 Lab Results: I have reviewed the past 24 hour labs
[2016-06-22] MEDS: DIGOXIN 0.125 MG TABLET PO SCH (12:57)
[2016-06-22] MEDS: ENOXAPARIN 40 MG/0.4 ML SYRINGE SUBCUT SCH (12:57)
[2016-06-23 04:24] LABS: Basophils % 0.5 % (0.0-0.8); Eosinophils # 0.1 10*3/uL (0.0-0.87); Eosinophils % 1.8 % (0.00-10.9); Hematocrit 36.2 VOL% (35.7-47.0); Hemoglobin 10.6 GM/DL (12.0-16.0); Immature Granulocytes % 0.3 %; Immature Granulocytes Absolute 0.02 #; Lymphocytes # 2.6 10*3/uL (1.4-4.0); Lymphocytes % 38.3 % (21.3-54.2); Mean Corpuscular HGB Conc 29.3 GM/DL (32-36); Mean Corpuscular Hemoglobin 21 PG (27-34); Mean Corpuscular Volume 72.5 FL (87-102); Mean Platelet Volume 10.6 FL (9.6-12.0); Monocytes # 0.8 10*3/uL (0.11-0.8); Monocytes % 12.3 % (1.7-12.7); Neutrophils # 3.1 10*3/uL (1.4-7.4); Neutrophils % 46.8 % (38.7-73.9); Platelet Count 242 T/CUMM (130-400); Red Blood Count 4.99 MC/CUMM (3.8-5.5); Red Cell Distribution Width 17.5 % (9.3-17.3); White Blood Count 6.7 T/CUMM (4-12)
[2016-06-23 04:42] LABS: Calcium 8.4 MG/DL (8.5-10.1); Magnesium 2.1 MG/DL (1.8-2.4); Osmolality,Calculated 279.3 MOS/KG (273-304); Potassium 3.9 MMOL/L (3.5-5.1)
[2016-06-23] MEDS: INSULIN LISPRO 100 UNIT/ML SUBCUT SCH ×2 (07:43→12:06)
[2016-06-23] MEDS: DOCUSATE SODIUM 100 MG CAPSULE PO SCH (08:22)
[2016-06-23] MEDS: ASCORBIC ACID 500 MG TABLET PO SCH (08:22)
[2016-06-23] MEDS: PANTOPRAZOLE 40 MG TABLET PO SCH (08:22)
[2016-06-23] MEDS: FUROSEMIDE 40 MG TABLET PO SCH (08:22)
[2016-06-23] MEDS: METOPROLOL TARTRATE 100 MG TABLET PO SCH (08:22)
--- NOTE | 2016-06-23 11:01 | Discharge Summary ---
Hospital Course - Hospital Course Hospital Course: Patient is a 70-year-old female who was admitted to acute care with acute congestive heart failure. It was felt this was secondary to A. fib with rapid ventricular response and diastolic dysfunction. Patient was on amiodarone and this was stopped. She was started on digoxin and Lasix. She is tolerating her medications well. She is not a candidate for anticoagulation. She has history of a bladder tumor and is going to have surgery over the next few days. She used to see Dr. Matta but has changed to Dr. Guzmán. She will be given an appointment. If she is readmitted she needs to go on hospitalist service who will admit patients for him. Patient will follow up with Dr. Ivan from cardiology standpoint. Diagnosis - Discharge Diagnosis (1) Congestive heart failure Status: Acute (2) Bladder tumor Status: Acute (3) Atrial fibrillation Status: Chronic (4) History of CVA Status: Chronic Discharge Plan - Discharge Data Disposition: Disch To Home/Self Care Condition at Discharge: Stable Discharge Diet: advance to your usual diet Activity: resume usual activities as tolerated - Discharge Medications New Digoxin Tab [Lanoxin Tab] 0.125 mg PO DAILY@1300 #30 tablet Furosemide Tab [Lasix Tab] 40 mg PO BID DIURETIC #60 tablet Continue Aspirin 81 mg PO QAM Nystatin [Nystatin Oint] 1 applic TOP BID PRN PRN Reason: SCAR PAIN Metoprolol Tartrate Tab [Lopressor Tab] 100 mg PO BID #60 tablet Discontinued Amiodarone Tab [Cordarone Tab] 400 mg PO BID - Follow Up or Referral - Forms/Instructions Additional Discharge Instructions: Please send in patients new medications. Follow-up with Dr. Guzmán in 2 weeks Exam - Constitutional Vitals: Period Temp Pulse Resp BP Sys/Shepard Pulse Ox Last 24 Hr 97.3 F-100 F 67-101 16-20 101-139/64-82 90-98 General appearance: over weight - Head Head exam: Present: normal inspection - Eye Eye exam: Present: EOMI Pupils: Present: ANDREW - Cardiovascular Cardiovascular exam: Present: irregular rhythm - GI/Abdominal GI/Abdominal exam: Present: normal bowel sounds, soft. Absent: tenderness - Extremities Exam Extremities exam: Present: normal inspection. Absent: edema Discharge Results Labs on day of discharge: Labs from last 24 hours 06/23/16 06/23/16 06/23/16 07:43 03:01 03:01 WBC 6.7 RBC 4.99 Hgb 10.6 L Hct 36.2 MCV 72.5 L MCH 21 L MCHC 29.3 L RDW 17.5 H Plt Count 242 MPV 10.6 Neut % (Auto) 46.8 Lymph % (Auto) 38.3 [place] % (Auto) 12.3 Eos % (Auto) 1.8 Baso % (Auto) 0.5 Neut # (Auto) 3.1 Lymph # (Auto) 2.6 [place] # (Auto) 0.8 Eos # (Auto) 0.1 Baso # (Auto) 0.0 Immature Gran % 0.3 Nucleated RBC % 0.0 Immature Gran # 0.02 Nucleated RBCs # 0.00 Sodium 141 Potassium 3.9 Chloride 96 L Carbon Dioxide 36 H Anion Gap 12.9 BUN 11 Creatinine 0.90 GFR Calculation 77 BUN/Creatinine Ratio 12.00 Glucose 102 POC Glucose 120 H Calculated Osmolality 279.3 Calcium 8.4 L Magnesium 2.1 06/22/16 21:14 WBC RBC Hgb Hct MCV MCH MCHC RDW Plt Count MPV Neut % (Auto) Lymph % (Auto) [place] % (Auto) Eos % (Auto) Baso % (Auto) Neut # (Auto) Lymph # (Auto) [place] # (Auto) Eos # (Auto) Baso # (Auto) Immature Gran % Nucleated RBC % Immature Gran # Nucleated RBCs # Sodium Potassium Chloride Carbon Dioxide Anion Gap BUN Creatinine GFR Calculation BUN/Creatinine Ratio Glucose POC Glucose 150 H Calculated Osmolality Calcium Magnesium DS: Provider Date of admission: 06/20/16 11:50 Primary care physician: . No PCP Attending physician on admission: Jason Leong DO Consults: 06/20/16 13:07 Consult to Case Mgmt/Social Srvs [CONS] Routine Reason for Case Mgmt/Social Srvs: Discharge Planning Consult to Physician [CONS] Routine Comment: chf Consulting Provider: Jared Collier Consult to Specialist Group: Cardiology Person Notified: RENE Date Notified: 06/20/16 Time Notified: 14:10 06/20/16 13:11 Consult to Pharmacy [CONS] Routine Reason for Pharmacy Consult: Adjust Meds Renal Funct Discharging clinician: Chivo Babb MD
--- NOTE | 2016-06-23 11:05 | Cardiology Progress Note ---
Assessment and Plan (1) Dyspnea Status: Acute Assessment and plan: The patient had acute on chronic congestive heart failure secondary to atrial fibrillation with rapid ventricular response and diastolic dysfunction. This has resolved with adjustment in her medication and diuresis. From my standpoint I think she can be discharged home on her current medical regimen. I would like for her to follow-up with her primary equal employment opportunity officer Dr. Forde in a couple of weeks. Current Visit: Yes (2) Atrial fibrillation Status: Chronic Assessment and plan: This is now well controlled after adjusting her rate control medications. Unfortunately she cannot get anticoagulation at this time secondary to her bladder tumor and hematuria. She is scheduled for cystoscopic surgery on this in the near future. Current Visit: Yes (3) Bladder tumor Status: Acute Current Visit: Yes (4) COPD (chronic obstructive pulmonary disease) Status: Chronic Current Visit: No (5) Hypertension Status: Chronic Current Visit: No Cardiology - PN: Subj Interval history: RN MANAGER: DR. FORDE PCP: DR. RICHARD Ms. Yoon, 70WF, has risk factors significant for: hypertension, obesity, remote tobaccoism (quit 16 years ago), COPD. History of paroxysmal atrial fibrillation, SVT and known abdominal aortic aneurysm. Recently diagnosed with bladder cancer during her last admission and is scheduled to undergo surgery by Dr. Negro Zuñiga June 26, 2016. Patient presented to the emergency department at [facility] for evaluation of severe shortness of breath with exertion and now at rest. She had begun to swell since recent discharge June 03, 2016. She quit taking her Lasix as she believes she was instructed not to resume. She has been swelling all over and more most recently experiencing PND. She has felt her heart racing. In the emergency department, she was given IV Lasix and has diuresed a significant amount in a short period of time. At this time she states she is breathing better though she is still tachypneic at rest. SUMMARY: Patient presented to ER June 20, 2016 in acute diastolic heart failure. She was found to be in atrial fibrillation with rapid ventricular response. IV digoxin was initiated and, as she diuresed, heart rate, under better control. Patient had stopped taking her Lasix at home. I suspect her heart rate was poorly controlled at home as well. She was first diagnosed with atrial fibrillation mid May 2016. She was given 1 dose of Xarelto and experienced extreme hematuria. She was subsequently diagnosed with bladder cancer and is scheduled to undergo surgical procedure June 26, [address] Negro Zuñiga. Patient was discharged home in atrial fibrillation, rate controlled, on Amiodarone. Globulin is elevated, albumin is low. Will order a multiple myeloma profile JUNE 21, 2016: Patient has dramatically improved overnight. She is not wearing oxygen at this point. She is no longer tachypneic. She is responded well to Lasix. Amiodarone was discontinued yesterday as it was felt the amiodarone was unsuccessful in treatment. IV digoxin was initiated and her heart rate is 70- 80 bpm, atrial fib. She continues to take metoprolol tartrate 100 mg orally twice daily. Again, she is not a candidate for formal anticoagulation due to her severe hematuria on Xarelto, upcoming bladder surgery for bladder cancer. Hopefully, in her future, we can rechallenge her with formal anticoagulation for stroke prevention. She has been on Lovenox 40 mg daily, initiated in the ER and she has had no hematuria. Transition to oral lasix in the morning. See results of urine and serum PEP. CBC daily to monitor anemia. Will transition Digoxin to oral dosing starting tomorrow. June 22, 2016: Patient is feeling back to normal. She is off of oxygen. She has no dyspnea or palpitation. She has had no angina. She denies any bleeding from her bladder. Patient is wanting to go home. I think that would be fine as she has been transferred to oral medications. I think I would leave off her amiodarone, and continue her inpatient medical regimen as an outpatient. Dr. Forde is her primary equal employment opportunity officer and we should arrange follow-up with him in a couple of weeks. June 23, 2016: Patient is feeling well today. She has no symptoms at all such as dyspnea or palpitations. She is free of angina. She is ready for discharge home. I think I would leave off her amiodarone, and continue her inpatient medical regimen as an outpatient. Dr. Forde is her primary equal employment opportunity officer and we should arrange follow-up with him in a couple of weeks. Exam (Progress Note) - Constitutional Vitals: Period Temp Pulse Resp BP Sys/Shepard Pulse Ox Last 24 Hr 97.3 F-100 F 67-101 16-20 101-139/64-82 90-98 Exam: General: Well-developed well-nourished and in no acute distress HEENT: Normocephalic, atraumatic Neck: Supple Neck, Midline Trachea Cardiac: Irregular Rhythm, No Murmur, no gallop, no rub Lungs: Grossly Normal Exam, Clear to Ascultation, No Wheeze, Rales, Rhonchi Neuro: Cranial Nerve 2-12 Intact, grossly normal Abdomen: Soft, Active Bowel Sounds, No Masses, No Pulsations/Bruits Skin: Normal color, no rash Extremities: No Clubbing, No Cyanosis, No Edema, Normal Upper Extr. Pulses Musculoskeletal: No acute abnormality noted Psychiatric: The patient is alert and oriented and does not appear to be anxious or depressed. Result/EKG - Labs CBC & BMP: 06/23/16 03:01 06/23/16 03:01 Lab Results: I have reviewed the past 24 hour labs Labs: Laboratory Results - last 24 hr 06/22/16 06/23/16 06/23/16 21:14 03:01 03:01 WBC 6.7 RBC 4.99 Hgb 10.6 L Hct 36.2 MCV 72.5 L MCH 21 L MCHC 29.3 L RDW 17.5 H Plt Count 242 MPV 10.6 Neut % (Auto) 46.8 Lymph % (Auto) 38.3 [place] % (Auto) 12.3 Eos % (Auto) 1.8 Baso % (Auto) 0.5 Neut # (Auto) 3.1 Lymph # (Auto) 2.6 [place] # (Auto) 0.8 Eos # (Auto) 0.1 Baso # (Auto) 0.0 Immature Gran % 0.3 Nucleated RBC % 0.0 Immature Gran # 0.02 Nucleated RBCs # 0.00 Sodium 141 Potassium 3.9 Chloride 96 L Carbon Dioxide 36 H Anion Gap 12.9 BUN 11 Creatinine 0.90 GFR Calculation 77 BUN/Creatinine Ratio 12.00 Glucose 102 POC Glucose 150 H Calculated Osmolality 279.3 Calcium 8.4 L Magnesium 2.1 06/23/16 07:43 WBC RBC Hgb Hct MCV MCH MCHC RDW Plt Count MPV Neut % (Auto) Lymph % (Auto) [place] % (Auto) Eos % (Auto) Baso % (Auto) Neut # (Auto) Lymph # (Auto) [place] # (Auto) Eos # (Auto) Baso # (Auto) Immature Gran % Nucleated RBC % Immature Gran # Nucleated RBCs # Sodium Potassium Chloride Carbon Dioxide Anion Gap BUN Creatinine GFR Calculation BUN/Creatinine Ratio Glucose POC Glucose 120 H Calculated Osmolality Calcium Magnesium - EKG EKG results: interpreted by me
[2016-06-23] MEDS: DIGOXIN 0.125 MG TABLET PO SCH (12:27)
[2016-06-23] MEDS: ENOXAPARIN 40 MG/0.4 ML SYRINGE SUBCUT SCH (12:28)
[2016-06-23 13:01] VITALS: BP 130/76
== END 2016-06-23 12:50 | disposition home or self-care (01) | DRG 308 ==
LOC: N.ED 09:04 → N.EDINP 11:50 → N.TELEN 12:38
PROVIDERS: ADMIT Family Medicine; ATTEND Family Medicine

== ENCOUNTER 2018-08-19 12:34 | Inpatient (IN) ==
[2018-08-19] MEDS ORDERED: DOCUSATE SODIUM 100 MG CAPSULE PO PRN (12:58)
[2018-08-19] MEDS ORDERED: ACETAMINOPHEN 325 MG TABLET PO PRN (12:58)
[2018-08-19] MEDS ORDERED: ONDANSETRON 4 MG/2 ML VIAL IV PRN (12:58)
[2018-08-19] MEDS ORDERED: MAGNESIUM SULF RIDER 2 GM in PREMIX 1 EACH IV PRN (12:58)
[2018-08-19] MEDS ORDERED: MAGNESIUM SULF RIDER 4 GM in PREMIX 1 EACH IV PRN (12:58)
[2018-08-19] MEDS ORDERED: diphenhydrAMINE CAP 25 MG CAPSULE PO PRN (13:06)
[2018-08-19] MEDS ORDERED: dilTIAZem Drip 125 MG/125 ML PREMIX IV SCH (13:30)
[2018-08-19 16:24] LABS: Basophils % 0.4 % (0.0-0.8); Eosinophils # 0.1 10*3/uL (0.0-0.87); Eosinophils % 2.2 % (0.00-10.9); Immature Granulocytes % 0.4 %; Immature Granulocytes Absolute 0.02 #; Lymphocytes % 24.5 % (21.3-54.2); Red Cell Distribution Width 16.6 % (9.3-17.3)
[2018-08-19 16:47] LABS: Hematocrit 40.9 VOL% (35.7-47.0); Hemoglobin 12.3 GM/DL (12.0-16.0); Lymphocytes # 1.4 10*3/uL (1.4-4.0); Mean Corpuscular HGB Conc 30.1 GM/DL (32-36); Mean Corpuscular Volume 79.6 FL (87-102); Mean Platelet Volume 10.4 FL (9.6-12.0); Monocytes % 11.1 % (1.7-12.7); Neutrophils % 61.4 % (38.7-73.9); Platelet Count 216 T/CUMM (130-400); Red Blood Count 5.14 MC/CUMM (3.8-5.5); White Blood Count 5.5 T/CUMM (4-12)
[2018-08-19 16:57] LABS: Albumin 3.2 G/DL (3.4-5.0); Bilirubin,Total 0.8 MG/DL (0.2-1.0); Calcium 8.7 MG/DL (8.5-10.1); Osmolality,Calculated 283.3 MOS/KG (273-304); Thyroid Stimulating Hormone 0.986 uIU/ml (0.358-3.74); Total Protein 7.5 G/DL (6.4-8.3)
[2018-08-19] MEDS ORDERED: SODIUM CHLORIDE 0.9% 500 ML IV SCH (18:00)
[2018-08-19] MEDS: APIXABAN 5 MG TABLET PO SCH ×2 (19:16→20:35)
[2018-08-19] MEDS: SOTALOL 80 MG TABLET PO SCH ×2 (19:16→20:35)
[2018-08-19] MEDS: ZALEPLON 5 MG CAPSULE PO PRN (20:35)
[2018-08-19 21:44] LABS: Troponin I < 0.015 NG/ML (0.00-0.045)
[2018-08-19 23:02] LABS: Amorphous Crystals,Urine Occasional /HPF (Few); Apearance,Urine CLOUDY (Clear); Bacteria,Urine Many /HPF (Few); Bilirubin,Urine Negative (Negative); Blood, Urine Negative (Negative); Glucose,Urine (UA) Negative (Negative); Granular Casts,Urine 6 /LPF (0-1); Hyaline Casts,Urine 6 /LPF (0-3); Ketones,Urine Negative (Negative); Mucus,Urine Occasional /LPF (Occasional); Nitrite,Urine Negative (Negative); Protein,Urine 30 MG/DL; RBC,Urine 14 /HPF (0-4); Squamous Epithelial Cell,Urine Occasional /HPF (0-10); Urine Specific Gravity 1.011 (1.001-1.035); WBC,Urine 49 /HPF (0-6)
[2018-08-19 23:05] LABS: Urine Color Light Yellow (Yellow)
[2018-08-20 06:02] LABS: Basophils % 0.7 % (0.0-0.8); Eosinophils # 0.1 10*3/uL (0.0-0.87); Eosinophils % 1.7 % (0.00-10.9); Hematocrit 39.5 VOL% (35.7-47.0); Hemoglobin 11.9 GM/DL (12.0-16.0); Immature Granulocytes % 0.3 %; Immature Granulocytes Absolute 0.02 #; Lymphocytes # 1.4 10*3/uL (1.4-4.0); Mean Corpuscular HGB Conc 30.1 GM/DL (32-36); Mean Corpuscular Volume 80.1 FL (87-102); Mean Platelet Volume 10.3 FL (9.6-12.0); Monocytes % 8.2 % (1.7-12.7); Neutrophils % 65.1 % (38.7-73.9); Platelet Count 230 T/CUMM (130-400); Red Blood Count 4.93 MC/CUMM (3.8-5.5); Red Cell Distribution Width 16.7 % (9.3-17.3); White Blood Count 5.8 T/CUMM (4-12)
[2018-08-20 06:36] LABS: Albumin 2.9 G/DL (3.4-5.0); Calcium 8.7 MG/DL (8.5-10.1); Osmolality,Calculated 279.7 MOS/KG (273-304)
[2018-08-20] MEDS ORDERED: FUROSEMIDE 40 MG/4 ML VIAL IV ONE (07:17)
[2018-08-20] MEDS: APIXABAN 5 MG TABLET PO SCH ×2 (08:45→20:41)
[2018-08-20] MEDS: SOTALOL 80 MG TABLET PO SCH ×2 (08:45→20:41)
[2018-08-20] MEDS: PANTOPRAZOLE 40 MG TABLET PO SCH (08:45)
[2018-08-20 10:31] LABS: Apearance,Urine CLEAR (Clear); Bacteria,Urine Occasional /HPF (Few); Bilirubin,Urine Negative (Negative); Blood, Urine Small mg/dL (Negative); Glucose,Urine (UA) Negative (Negative); Ketones,Urine Negative (Negative); Nitrite,Urine Negative (Negative); Protein,Urine Negative; RBC,Urine 2 /HPF (0-4); Squamous Epithelial Cell,Urine Occasional /HPF (0-10); Urine Color Colorless (Yellow); Urine Specific Gravity 1.004 (1.001-1.035); Urine Urobilinogen < 2.0 EU/DL (0.2-1.0); WBC,Urine 3 /HPF (0-6)
[2018-08-20] MEDS: LEVALBUTEROL 1.25 MG/3 ML NEB RESP TX SCH ×4 (11:10→22:43)
[2018-08-20] MEDS: DILTIAZEM 30 MG TABLET PO SCH ×2 (15:56→20:41)
[2018-08-20] MEDS: ZALEPLON 5 MG CAPSULE PO PRN (23:11)
[2018-08-21] MEDS: LEVALBUTEROL 1.25 MG/3 ML NEB RESP TX SCH ×2 (03:00→07:22)
[2018-08-21 05:25] LABS: Basophils % 0.8 % (0.0-0.8); Eosinophils # 0.2 10*3/uL (0.0-0.87); Eosinophils % 4.1 % (0.00-10.9); Hematocrit 38.2 VOL% (35.7-47.0); Hemoglobin 11.5 GM/DL (12.0-16.0); Immature Granulocytes % 0.6 %; Immature Granulocytes Absolute 0.03 #; Lymphocytes # 1.5 10*3/uL (1.4-4.0); Mean Corpuscular HGB Conc 30.1 GM/DL (32-36); Mean Corpuscular Volume 78.4 FL (87-102); Mean Platelet Volume 10.1 FL (9.6-12.0); Monocytes % 10.4 % (1.7-12.7); Neutrophils % 56.1 % (38.7-73.9); Platelet Count 205 T/CUMM (130-400); Red Blood Count 4.87 MC/CUMM (3.8-5.5); Red Cell Distribution Width 16.3 % (9.3-17.3); White Blood Count 5.2 T/CUMM (4-12)
[2018-08-21 05:30] LABS: Calcium 8.7 MG/DL (8.5-10.1); Osmolality,Calculated 278.7 MOS/KG (273-304)
[2018-08-21] MEDS ORDERED: LEVALBUTEROL 1.25 MG/3 ML NEB RESP TX PRN (07:24)
[2018-08-21] MEDS: DILTIAZEM 30 MG TABLET PO SCH ×3 (08:47→21:23)
[2018-08-21] MEDS: APIXABAN 5 MG TABLET PO SCH ×2 (08:47→21:23)
[2018-08-21] MEDS: FUROSEMIDE 40 MG/4 ML VIAL IV SCH ×2 (08:47→15:10)
[2018-08-21] MEDS: PANTOPRAZOLE 40 MG TABLET PO SCH (08:47)
[2018-08-21] MEDS: SOTALOL 80 MG TABLET PO SCH ×2 (08:47→21:22)
[2018-08-21] MEDS ORDERED: FUROSEMIDE 40 MG TABLET PO SCH (09:00)
[2018-08-22 06:23] LABS: Basophils % 0.6 % (0.0-0.8); Eosinophils # 0.2 10*3/uL (0.0-0.87); Eosinophils % 3.8 % (0.00-10.9); Hematocrit 38.6 VOL% (35.7-47.0); Hemoglobin 11.9 GM/DL (12.0-16.0); Immature Granulocytes % 0.4 %; Immature Granulocytes Absolute 0.02 #; Lymphocytes # 1.4 10*3/uL (1.4-4.0); Lymphocytes % 28.3 % (21.3-54.2); Mean Corpuscular HGB Conc 30.8 GM/DL (32-36); Mean Corpuscular Volume 77.2 FL (87-102); Mean Platelet Volume 10.1 FL (9.6-12.0); Monocytes % 11.8 % (1.7-12.7); Neutrophils % 55.1 % (38.7-73.9); Platelet Count 226 T/CUMM (130-400); Red Cell Distribution Width 16.3 % (9.3-17.3)
[2018-08-22 06:39] LABS: Calcium 8.9 MG/DL (8.5-10.1); Osmolality,Calculated 283.4 MOS/KG (273-304)
[2018-08-22] MEDS ORDERED: DILTIAZEM CD 180 MG CAPSULE PO SCH (09:00)
[2018-08-22] MEDS: FUROSEMIDE 40 MG/4 ML VIAL IV SCH ×2 (09:07→17:33)
[2018-08-22] MEDS: APIXABAN 5 MG TABLET PO SCH ×2 (09:08→21:13)
[2018-08-22] MEDS: PANTOPRAZOLE 40 MG TABLET PO SCH (09:08)
[2018-08-22] MEDS: SOTALOL 80 MG TABLET PO SCH (09:08)
[2018-08-22] MEDS: DILTIAZEM 30 MG TABLET PO SCH ×2 (17:33→21:13)
[2018-08-22] MEDS: ZALEPLON 5 MG CAPSULE PO PRN (21:16)
[2018-08-23 04:47] LABS: Basophils % 0.3 % (0.0-0.8); Eosinophils # 0.1 10*3/uL (0.0-0.87); Eosinophils % 1.4 % (0.00-10.9); Hematocrit 41.9 VOL% (35.7-47.0); Hemoglobin 12.7 GM/DL (12.0-16.0); Immature Granulocytes % 0.5 %; Immature Granulocytes Absolute 0.04 #; Lymphocytes # 1.2 10*3/uL (1.4-4.0); Mean Corpuscular HGB Conc 30.3 GM/DL (32-36); Mean Corpuscular Volume 77.4 FL (87-102); Mean Platelet Volume 11.1 FL (9.6-12.0); Monocytes % 9.4 % (1.7-12.7); Neutrophils % 72.4 % (38.7-73.9); Platelet Count 173 T/CUMM (130-400); Red Blood Count 5.41 MC/CUMM (3.8-5.5); Red Cell Distribution Width 16.5 % (9.3-17.3); White Blood Count 7.6 T/CUMM (4-12)
[2018-08-23 05:14] LABS: Calcium 8.8 MG/DL (8.5-10.1)
[2018-08-23] MEDS: DILTIAZEM CD 120 MG CAPSULE PO SCH ×2 (08:20→21:23)
[2018-08-23] MEDS: FUROSEMIDE 40 MG/4 ML VIAL IV SCH ×2 (09:22→17:51)
[2018-08-23] MEDS: PANTOPRAZOLE 40 MG TABLET PO SCH (09:22)
[2018-08-23] MEDS: FLECAINIDE 50 MG TABLET PO SCH ×2 (09:22→21:23)
[2018-08-23] MEDS: APIXABAN 5 MG TABLET PO SCH ×2 (09:22→21:23)
[2018-08-23] MEDS ORDERED: DIGOXIN 0.5 MG/2 ML AMP IV ONE (11:03)
[2018-08-23] MEDS ORDERED: ALPRAZolam 0.5 MG TABLET PO PRN (11:26)
[2018-08-23] MEDS: dilTIAZem Drip 125 MG/125 ML PREMIX IV SCH (15:05)
[2018-08-24 04:20] LABS: Basophils % 0.5 % (0.0-0.8); Eosinophils % 0.2 % (0.00-10.9); Hematocrit 42.8 VOL% (35.7-47.0); Hemoglobin 13.2 GM/DL (12.0-16.0); Immature Granulocytes % 0.5 %; Immature Granulocytes Absolute 0.03 #; Lymphocytes # 1.1 10*3/uL (1.4-4.0); Mean Corpuscular HGB Conc 30.8 GM/DL (32-36); Mean Corpuscular Volume 76.8 FL (87-102); Mean Platelet Volume 9.5 FL (9.6-12.0); Monocytes % 12.8 % (1.7-12.7); Platelet Count 207 T/CUMM (130-400); Red Blood Count 5.57 MC/CUMM (3.8-5.5); Red Cell Distribution Width 16.6 % (9.3-17.3); White Blood Count 5.7 T/CUMM (4-12)
[2018-08-24 04:36] LABS: Calcium 8.4 MG/DL (8.5-10.1); Osmolality,Calculated 269.5 MOS/KG (273-304)
[2018-08-24] MEDS: dilTIAZem Drip 125 MG/125 ML PREMIX IV SCH (07:15)
[2018-08-24] MEDS ORDERED: POTASSIUM CHLORIDE 20 MEQ/15 ML UDCUP PER TUBE PRN (07:18)
[2018-08-24] MEDS: APIXABAN 5 MG TABLET PO SCH ×2 (09:07→21:41)
[2018-08-24] MEDS: MAGNESIUM CHLORIDE 64 MG TABLET PO SCH ×2 (09:07→21:42)
[2018-08-24] MEDS: PANTOPRAZOLE 40 MG TABLET PO SCH (09:07)
[2018-08-24] MEDS: DILTIAZEM CD 180 MG CAPSULE PO SCH ×2 (09:07→21:41)
[2018-08-24] MEDS: FLECAINIDE 100 MG TABLET PO SCH ×2 (09:07→21:41)
[2018-08-24] MEDS: POTASSIUM CHLORIDE 20 MEQ TABLET PO SCH ×2 (09:07→21:42)
[2018-08-24] MEDS: FUROSEMIDE 40 MG/4 ML VIAL IV SCH ×2 (09:08→16:08)
[2018-08-25 04:24] LABS: Basophils % 0.5 % (0.0-0.8); Eosinophils # 0.1 10*3/uL (0.0-0.87); Eosinophils % 1.8 % (0.00-10.9); Hematocrit 43.2 VOL% (35.7-47.0); Hemoglobin 13.5 GM/DL (12.0-16.0); Immature Granulocytes % 0.5 %; Immature Granulocytes Absolute 0.03 #; Lymphocytes # 1.3 10*3/uL (1.4-4.0); Lymphocytes % 23.8 % (21.3-54.2); Mean Corpuscular HGB Conc 31.3 GM/DL (32-36); Mean Corpuscular Volume 75.7 FL (87-102); Mean Platelet Volume 9.8 FL (9.6-12.0); Monocytes % 16.7 % (1.7-12.7); Neutrophils % 56.7 % (38.7-73.9); Platelet Count 194 T/CUMM (130-400); Red Blood Count 5.71 MC/CUMM (3.8-5.5); Red Cell Distribution Width 16.7 % (9.3-17.3); White Blood Count 5.5 T/CUMM (4-12)
[2018-08-25 04:38] LABS: Osmolality,Calculated 268.7 MOS/KG (273-304)
[2018-08-25 05:05] LABS: Anisocytosis 1+; Eosinophils 2 % (0-10); Lymphocytes 27 % (20-55); Platelet Estimate Adequate; Segmented Neutrophils 55 % (50-85); Total Cells Counted 100
[2018-08-25] MEDS: SODIUM CHLORIDE 0.9% 1,000 ML IV SCH ×3 (06:24→10:03)
[2018-08-25] MEDS: FUROSEMIDE 40 MG/4 ML VIAL IV SCH (08:50)
[2018-08-25] MEDS: MAGNESIUM CHLORIDE 64 MG TABLET PO SCH ×2 (08:51→21:26)
[2018-08-25] MEDS: DILTIAZEM CD 180 MG CAPSULE PO SCH (08:51)
[2018-08-25] MEDS: POTASSIUM CHLORIDE 20 MEQ TABLET PO SCH ×2 (08:51→21:25)
[2018-08-25] MEDS: PANTOPRAZOLE 40 MG TABLET PO SCH (08:51)
[2018-08-25] MEDS: APIXABAN 5 MG TABLET PO SCH ×3 (08:51→21:26)
[2018-08-25] MEDS: FLECAINIDE 100 MG TABLET PO SCH ×2 (08:51→21:26)
[2018-08-25] MEDS ORDERED: PROPOFOL 200 MG/20 ML VIAL IV ONE (09:15)
[2018-08-25] MEDS ORDERED: POTASSIUM CHLORIDE 20 MEQ TABLET PO ONE (10:59)
[2018-08-25] MEDS: DILTIAZEM CD 240 MG CAPSULE PO SCH (21:25)
[2018-08-26 05:09] LABS: Basophils % 0.6 % (0.0-0.8); Eosinophils # 0.2 10*3/uL (0.0-0.87); Hematocrit 40.7 VOL% (35.7-47.0); Hemoglobin 12.7 GM/DL (12.0-16.0); Immature Granulocytes % 0.6 %; Immature Granulocytes Absolute 0.03 #; Lymphocytes # 1.4 10*3/uL (1.4-4.0); Lymphocytes % 25.6 % (21.3-54.2); Mean Corpuscular HGB Conc 31.2 GM/DL (32-36); Mean Corpuscular Volume 76.6 FL (87-102); Mean Platelet Volume 10.7 FL (9.6-12.0); Monocytes % 17.7 % (1.7-12.7); Neutrophils % 52.5 % (38.7-73.9); Platelet Count 194 T/CUMM (130-400); Red Blood Count 5.31 MC/CUMM (3.8-5.5); Red Cell Distribution Width 16.5 % (9.3-17.3); White Blood Count 5.3 T/CUMM (4-12)
[2018-08-26 05:34] LABS: Band Neutrophils 13 % (0-10); Eosinophils 3 % (0-10); Lymphocytes 35 % (20-55); Segmented Neutrophils 33 % (50-85); Total Cells Counted 100
[2018-08-26 05:35] LABS: Anisocytosis 1+; Calcium 8.9 MG/DL (8.5-10.1); Osmolality,Calculated 272.2 MOS/KG (273-304); Ovalocytes 1+; Platelet Estimate Adequate
[2018-08-26 08:54] VITALS: BP 133/59
[2018-08-26] MEDS ORDERED: DOXYCYCLINE HYCLATE 100 MG CAPSULE PO SCH (09:00)
[2018-08-26] MEDS ORDERED: POTASSIUM CHLORIDE 20 MEQ TABLET PO SCH (09:00)
[2018-08-26] MEDS ORDERED: MAGNESIUM CHLORIDE 64 MG TABLET PO SCH (09:00)
[2018-08-26] MEDS: FLECAINIDE 100 MG TABLET PO SCH (09:13)
[2018-08-26] MEDS: APIXABAN 5 MG TABLET PO SCH (09:13)
[2018-08-26] MEDS: PANTOPRAZOLE 40 MG TABLET PO SCH (09:14)
[2018-08-26] MEDS: DILTIAZEM CD 240 MG CAPSULE PO SCH (09:14)
[2018-08-26 09:39] LABS: Amorphous Crystals,Urine Occasional /HPF (Few); Apearance,Urine CLOUDY (Clear); Bacteria,Urine Many /HPF (Few); Bilirubin,Urine Negative (Negative); Blood, Urine Small mg/dL (Negative); Glucose,Urine (UA) Negative (Negative); Ketones,Urine Negative (Negative); Nitrite,Urine Positive (Negative); Protein,Urine 30 MG/DL; RBC,Urine 4 /HPF (0-4); Urine Color Yellow (Yellow); Urine Specific Gravity 1.011 (1.001-1.035); WBC,Urine 11 /HPF (0-6)
[2018-08-26] MEDS ORDERED: SULFAMETHOX/TRIMETHOPRIM 800-160 MG TABLET PO SCH (10:19)
== END 2018-08-26 12:12 | disposition home or self-care (01) | DRG 309 ==
LOC: N.TELES 15:08 → INTOOBSV 08-20 11:03
PROVIDERS: ADMIT Internal Medicine Cardiovascular Disease; ATTEND Internal Medicine Cardiovascular Disease

== ENCOUNTER 2020-05-25 09:53 | Inpatient (IN) ==
[2020-05-25] MEDS ORDERED: DILTIAZEM 50 MG/10 ML VIAL IV STA (10:20)
[2020-05-25 10:38] LABS: Basophils % 0.4 % (0.0-0.8); Eosinophils # 0.1 10*3/uL (0.0-0.87); Eosinophils % 1.3 % (0.00-10.9); Hematocrit 40.3 VOL% (35.7-47.0); Hemoglobin 12.5 GM/DL (12.0-16.0); Immature Granulocytes % 0.4 %; Immature Granulocytes Absolute 0.02 #; Lymphocytes # 0.8 10*3/uL (1.4-4.0); Lymphocytes % 16.3 % (21.3-54.2); Mean Corpuscular Volume 76.6 FL (87-102); Mean Platelet Volume 9.5 FL (9.6-12.0); Monocytes % 10.9 % (1.7-12.7); Neutrophils % 70.7 % (38.7-73.9); Platelet Count 202 T/CUMM (130-400); Red Blood Count 5.26 MC/CUMM (3.8-5.5); Red Cell Distribution Width 20.9 % (9.3-17.3); White Blood Count 4.7 T/CUMM (4-12)
[2020-05-25] MEDS ORDERED: DILTIAZEM 100 MG VIAL.ADD IV ONE (10:50)
[2020-05-25] MEDS: DILTIAZEM INJ 100 MG in SODIUM CHLORIDE 0.9% 100 ML IV SCH ×2 (11:00→20:38)
[2020-05-25 11:13] LABS: Bilirubin,Urine Negative (Negative); Blood, Urine Negative (Negative); Glucose,Urine (UA) Negative (Negative); Ketones,Urine Negative (Negative); Mucus,Urine Occasional /LPF (Occasional); Nitrite,Urine Negative (Negative); Protein,Urine 100 MG/DL; RBC,Urine 72 /HPF (0-4); Squamous Epithelial Cell,Urine Occasional /HPF (0-10); Triple Phosphate Crystal,Urine Occasional /HPF (Few); Urine Appearance CLOUDY (Clear); Urine Color Amber (Yellow); Urine Specific Gravity 1.011 (1.001-1.035); Urine Urobilinogen < 2.0 EU/DL (0.2-1.0); WBC,Urine 11 /HPF (0-6)
[2020-05-25 11:14] LABS: Albumin 3.1 G/DL (3.4-5.0); Calcium 8.7 MG/DL (8.5-10.1); Osmolality,Calculated 272.1 MOS/KG (273-304); Potassium 4.1 MMOL/L (3.5-5.1); Total Protein 6.9 G/DL (6.4-8.2)
[2020-05-25] MEDS ORDERED: ACETAMINOPHEN 325 MG TABLET PO PRN (11:57)
[2020-05-25] MEDS ORDERED: ONDANSETRON 4 MG/2 ML VIAL IV PRN (11:57)
[2020-05-25] MEDS ORDERED: DEXTROSE 50% 25 GM/50 ML VIAL IV PRN (12:00)
[2020-05-25] MEDS ORDERED: GLUCAGON 1 MG VIAL IM PRN (12:00)
[2020-05-25 12:07] LABS: INR 1.1; PT Patient Result 11.7 SECS (9.8-11.9)
[2020-05-25] MEDS ORDERED: FLECAINIDE 50 MG TABLET PO SCH (12:30)
[2020-05-25] MEDS ORDERED: ENOXAPARIN 40 MG/0.4 ML SYRINGE SUBCUT SCH (13:00)
[2020-05-25] MEDS ORDERED: ENOXAPARIN 80 MG/0.8 ML SYRINGE SUBCUT SCH (13:30)
[2020-05-25] MEDS: ESCITALOPRAM 10 MG TABLET PO SCH (14:29)
[2020-05-25] MEDS: ASPIRIN CHEW 81 MG TABLET PO SCH (14:29)
[2020-05-25] MEDS: FOLIC ACID 1 MG TABLET PO SCH (14:30)
[2020-05-25] MEDS: FUROSEMIDE 20 MG TABLET PO SCH ×2 (14:30→20:34)
[2020-05-25] MEDS: DILTIAZEM CD 240 MG CAPSULE PO SCH ×2 (14:30→20:33)
[2020-05-25] MEDS: SIMVASTATIN 10 MG TABLET PO SCH (14:31)
[2020-05-25] MEDS: traMADol 50 MG TABLET PO PRN ×2 (15:58→22:59)
[2020-05-25] MEDS: INSULIN LISPRO 100 UNIT/ML SUBCUT SCH ×2 (16:21→22:26)
[2020-05-25] MEDS ORDERED: HEPARIN DRIP 25,000 UNITS/500 ML PREMIX IV SCH (17:30)
[2020-05-25] MEDS: ASCORBIC ACID 500 MG TABLET PO SCH (20:34)
[2020-05-25] MEDS: FLECAINIDE 100 MG TABLET PO SCH (20:34)
[2020-05-25] MEDS: MORPHINE 4 MG/1 ML VIAL IV PRN (20:42)
[2020-05-25] MEDS ORDERED: DILTIAZEM CD 240 MG CAPSULE PO SCH (21:00)
[2020-05-26 01:01] LABS: Calcium 8.1 MG/DL (8.5-10.1); Osmolality,Calculated 268.4 MOS/KG (273-304); Potassium 3.5 MMOL/L (3.5-5.1)
[2020-05-26 01:11] LABS: Basophils % 0.4 % (0.0-0.8); Eosinophils # 0.2 10*3/uL (0.0-0.87); Eosinophils % 4.2 % (0.00-10.9); Hematocrit 37.8 VOL% (35.7-47.0); Hemoglobin 11.3 GM/DL (12.0-16.0); Immature Granulocytes % 0.9 %; Immature Granulocytes Absolute 0.04 #; Lymphocytes # 0.8 10*3/uL (1.4-4.0); Mean Corpuscular HGB Conc 29.9 GM/DL (32-36); Mean Corpuscular Volume 78.8 FL (87-102); Monocytes % 12.2 % (1.7-12.7); Neutrophils % 65.3 % (38.7-73.9); Platelet Count 211 T/CUMM (130-400); Red Cell Distribution Width 20.4 % (9.3-17.3); White Blood Count 4.5 T/CUMM (4-12)
[2020-05-26] MEDS: MORPHINE 4 MG/1 ML VIAL IV PRN (02:38)
[2020-05-26 03:25] LABS: Eosinophils 3 % (0-10); Hypochromasia 1+; Lymphocytes 17 % (20-55); Segmented Neutrophils 78 % (50-85); Total Cells Counted 100
[2020-05-26 03:26] LABS: Ovalocytes 1+; Platelet Estimate Adequate
[2020-05-26] MEDS ORDERED: HEPARIN 5,000 UNIT/1 ML VIAL IV ONE (07:25)
[2020-05-26] MEDS: INSULIN LISPRO 100 UNIT/ML SUBCUT SCH ×4 (09:07→22:03)
[2020-05-26] MEDS ORDERED: propofoL 200 MG/20 ML VIAL IV ONE (09:11)
[2020-05-26] MEDS ORDERED: ROCURONIUM 50 MG/5 ML VIAL IV ONE ×2 (09:11→11:53)
[2020-05-26] MEDS ORDERED: MIDAZOLAM 2 MG/2 ML VIAL ONE (09:11)
[2020-05-26] MEDS ORDERED: LIDOCAINE 2% 5 ML VIAL ONE (09:11)
[2020-05-26] MEDS ORDERED: fentaNYL 100 MCG/2 ML VIAL ONE ×2 (09:11→12:23)
[2020-05-26] MEDS ORDERED: HEPARIN/NACL 0.9% 2 UNITS/ML 500 ML IV ONE (09:19)
[2020-05-26] MEDS ORDERED: PHENYLEPHRINE DRIP 20 MG/250 ML PREMIX IV ONE (09:19)
[2020-05-26] MEDS ORDERED: NITROGLYCERIN DRIP 0 MG/0 ML BOTTLE IV ONE (09:19)
[2020-05-26] MEDS ORDERED: PHENYLEPHRINE 1 MG/10 ML SYRINGE IV ONE (09:19)
[2020-05-26] MEDS: LACTATED RINGERS 1,000 ML IV SCH (09:25)
[2020-05-26] MEDS ORDERED: BACITRACIN 50,000 UNIT VIAL ONE (09:31)
[2020-05-26] MEDS ORDERED: PAPAVERINE 60 MG/2 ML VIAL ONE (09:31)
[2020-05-26] MEDS: ASPIRIN CHEW 81 MG TABLET PO SCH (09:35)
[2020-05-26] MEDS: ESCITALOPRAM 10 MG TABLET PO SCH (09:35)
[2020-05-26] MEDS: FUROSEMIDE 20 MG TABLET PO SCH ×2 (09:35→21:59)
[2020-05-26] MEDS: FOLIC ACID 1 MG TABLET PO SCH (09:35)
[2020-05-26] MEDS: DILTIAZEM CD 240 MG CAPSULE PO SCH ×2 (09:35→21:57)
[2020-05-26] MEDS: FLECAINIDE 100 MG TABLET PO SCH ×2 (09:36→22:00)
[2020-05-26] MEDS: FENOFIBRATE 145 MG TABLET PO SCH (09:36)
[2020-05-26] MEDS: PANTOPRAZOLE 40 MG TABLET PO SCH (09:36)
[2020-05-26] MEDS: SIMVASTATIN 10 MG TABLET PO SCH (09:36)
[2020-05-26] MEDS: ASCORBIC ACID 500 MG TABLET PO SCH ×2 (09:36→21:58)
[2020-05-26] MEDS ORDERED: DILTIAZEM 100 MG VIAL.ADD IV ONE (09:58)
[2020-05-26] MEDS ORDERED: ceFAZolin 1,000 MG VIAL ONE (10:16)
[2020-05-26] MEDS ORDERED: HEPARIN 10,000 UNIT/10 ML VIAL ONE (10:28)
[2020-05-26] MEDS ORDERED: ETOMIDATE 40 MG/20 ML VIAL IV ONE (10:28)
[2020-05-26] MEDS: DILTIAZEM INJ 100 MG in SODIUM CHLORIDE 0.9% 100 ML IV SCH (11:08)
[2020-05-26] MEDS ORDERED: LACTATED RINGERS 1,000 ML IV ONE ×2 (11:43→12:19)
[2020-05-26] MEDS ORDERED: SEVOFLURANE 1 UNIT/15 MINUTE INH ONE ×8 (11:43→12:18)
[2020-05-26] MEDS ORDERED: DEXAMETHASONE 4 MG/1 ML VIAL ONE (11:57)
[2020-05-26] MEDS ORDERED: ONDANSETRON 4 MG/2 ML VIAL ONE (11:57)
[2020-05-26] MEDS ORDERED: ACETAMINOPHEN 1,000 MG/100 ML VIAL IV ONE (12:00)
[2020-05-26] MEDS ORDERED: SUGAMMADEX 200 MG/2 ML VIAL IV ONE (12:09)
[2020-05-26] MEDS ORDERED: PROTAMINE SULFATE 50 MG/5 ML VIAL IV ONE (12:19)
[2020-05-26] MEDS ORDERED: MORPHINE 4 MG/1 ML VIAL IV PRN (12:32)
[2020-05-26] MEDS ORDERED: GLUCAGON 1 MG VIAL IM PRN (12:38)
[2020-05-26] MEDS ORDERED: DEXTROSE 50% 25 GM/50 ML VIAL IV PRN (12:38)
[2020-05-26 13:03] LABS: Hematocrit 37.3 VOL% (35.7-47.0); Hemoglobin 11.1 GM/DL (12.0-16.0)
[2020-05-27] MEDS: LACTATED RINGERS 1,000 ML IV SCH (05:25)
[2020-05-27 06:39] LABS: Basophils % 0.2 % (0.0-0.8); Eosinophils % 0.2 % (0.00-10.9); Hematocrit 35.2 VOL% (35.7-47.0); Hemoglobin 10.6 GM/DL (12.0-16.0); Immature Granulocytes % 0.7 %; Immature Granulocytes Absolute 0.04 #; Lymphocytes # 0.8 10*3/uL (1.4-4.0); Lymphocytes % 13.2 % (21.3-54.2); Mean Corpuscular HGB Conc 30.1 GM/DL (32-36); Mean Corpuscular Volume 79.5 FL (87-102); Mean Platelet Volume 9.5 FL (9.6-12.0); Monocytes % 9.9 % (1.7-12.7); Neutrophils % 75.8 % (38.7-73.9); Platelet Count 181 T/CUMM (130-400); Red Blood Count 4.43 MC/CUMM (3.8-5.5); Red Cell Distribution Width 20.1 % (9.3-17.3)
[2020-05-27 06:59] LABS: Calcium 8.8 MG/DL (8.5-10.1)
[2020-05-27 07:00] LABS: Osmolality,Calculated 277.8 MOS/KG (273-304); Potassium 4.5 MMOL/L (3.5-5.1)
[2020-05-27] MEDS: INSULIN LISPRO 100 UNIT/ML SUBCUT SCH ×4 (08:08→21:28)
[2020-05-27] MEDS: ESCITALOPRAM 10 MG TABLET PO SCH (08:09)
[2020-05-27] MEDS: FUROSEMIDE 20 MG TABLET PO SCH ×2 (08:09→21:27)
[2020-05-27] MEDS: DILTIAZEM CD 240 MG CAPSULE PO SCH ×2 (08:09→21:27)
[2020-05-27] MEDS: ASPIRIN CHEW 81 MG TABLET PO SCH (08:09)
[2020-05-27] MEDS: PANTOPRAZOLE 40 MG TABLET PO SCH (08:09)
[2020-05-27] MEDS: FLECAINIDE 100 MG TABLET PO SCH ×2 (08:09→21:27)
[2020-05-27] MEDS: ASCORBIC ACID 500 MG TABLET PO SCH ×2 (08:10→21:27)
[2020-05-27] MEDS: FENOFIBRATE 145 MG TABLET PO SCH (08:10)
[2020-05-27] MEDS: SIMVASTATIN 10 MG TABLET PO SCH (08:10)
[2020-05-27] MEDS: FOLIC ACID 1 MG TABLET PO SCH (08:10)
[2020-05-27] MEDS: DILTIAZEM INJ 100 MG in SODIUM CHLORIDE 0.9% 100 ML IV SCH (11:08)
[2020-05-27] MEDS: APIXABAN 5 MG TABLET PO SCH ×2 (12:47→21:27)
[2020-05-28] MEDS: LACTATED RINGERS 1,000 ML IV SCH (05:34)
[2020-05-28 06:34] LABS: Calcium 8.6 MG/DL (8.5-10.1); Osmolality,Calculated 269.2 MOS/KG (273-304); Potassium 4.8 MMOL/L (3.5-5.1)
[2020-05-28 07:03] LABS: Basophils % 0.2 % (0.0-0.8); Eosinophils # 0.1 10*3/uL (0.0-0.87); Eosinophils % 1.7 % (0.00-10.9); Hematocrit 32.7 VOL% (35.7-47.0); Hemoglobin 9.9 GM/DL (12.0-16.0); Immature Granulocytes % 0.6 %; Immature Granulocytes Absolute 0.03 #; Lymphocytes # 0.9 10*3/uL (1.4-4.0); Lymphocytes % 17.8 % (21.3-54.2); Mean Corpuscular HGB Conc 30.3 GM/DL (32-36); Mean Corpuscular Volume 78.8 FL (87-102); Mean Platelet Volume 9.7 FL (9.6-12.0); Monocytes % 12.7 % (1.7-12.7); NRBC # 0.02 10*3/uL; Platelet Count 192 T/CUMM (130-400); Red Blood Count 4.15 MC/CUMM (3.8-5.5); Red Cell Distribution Width 20.5 % (9.3-17.3); White Blood Count 5.3 T/CUMM (4-12)
[2020-05-28] MEDS: INSULIN LISPRO 100 UNIT/ML SUBCUT SCH ×4 (08:06→21:21)
[2020-05-28] MEDS: ASCORBIC ACID 500 MG TABLET PO SCH ×2 (08:56→21:21)
[2020-05-28] MEDS: ESCITALOPRAM 10 MG TABLET PO SCH (08:57)
[2020-05-28] MEDS: APIXABAN 5 MG TABLET PO SCH ×2 (08:57→21:21)
[2020-05-28] MEDS: DILTIAZEM CD 240 MG CAPSULE PO SCH ×2 (08:57→21:20)
[2020-05-28] MEDS: PANTOPRAZOLE 40 MG TABLET PO SCH (08:57)
[2020-05-28] MEDS: FUROSEMIDE 20 MG TABLET PO SCH ×2 (08:57→21:21)
[2020-05-28] MEDS: FOLIC ACID 1 MG TABLET PO SCH (08:58)
[2020-05-28] MEDS: ASPIRIN CHEW 81 MG TABLET PO SCH (08:58)
[2020-05-28] MEDS: FENOFIBRATE 145 MG TABLET PO SCH (08:58)
[2020-05-28] MEDS: SIMVASTATIN 10 MG TABLET PO SCH (09:01)
[2020-05-28] MEDS: FLECAINIDE 100 MG TABLET PO SCH ×2 (10:18→21:21)
[2020-05-29] MEDS: LACTATED RINGERS 1,000 ML IV SCH (01:49)
[2020-05-29 05:29] LABS: Basophils % 0.5 % (0.0-0.8); Eosinophils # 0.1 10*3/uL (0.0-0.87); Eosinophils % 3.1 % (0.00-10.9); Hematocrit 32.9 VOL% (35.7-47.0); Immature Granulocytes % 0.7 %; Immature Granulocytes Absolute 0.03 #; Lymphocytes # 0.9 10*3/uL (1.4-4.0); Lymphocytes % 22.6 % (21.3-54.2); Mean Corpuscular HGB Conc 30.4 GM/DL (32-36); Mean Corpuscular Volume 78.3 FL (87-102); Mean Platelet Volume 9.6 FL (9.6-12.0); Monocytes % 13.5 % (1.7-12.7); Neutrophils % 59.6 % (38.7-73.9); Platelet Count 205 T/CUMM (130-400); Red Cell Distribution Width 20.8 % (9.3-17.3); White Blood Count 4.2 T/CUMM (4-12)
[2020-05-29 06:03] LABS: Calcium 8.7 MG/DL (8.5-10.1); Osmolality,Calculated 276.7 MOS/KG (273-304); Potassium 3.9 MMOL/L (3.5-5.1)
[2020-05-29] MEDS: DILTIAZEM CD 240 MG CAPSULE PO SCH (08:44)
[2020-05-29] MEDS: ASCORBIC ACID 500 MG TABLET PO SCH (08:45)
[2020-05-29] MEDS: ESCITALOPRAM 10 MG TABLET PO SCH (08:45)
[2020-05-29] MEDS: APIXABAN 5 MG TABLET PO SCH (08:46)
[2020-05-29] MEDS: FUROSEMIDE 20 MG TABLET PO SCH (08:46)
[2020-05-29] MEDS: ASPIRIN CHEW 81 MG TABLET PO SCH (08:46)
[2020-05-29] MEDS: FENOFIBRATE 145 MG TABLET PO SCH (08:46)
[2020-05-29] MEDS: SIMVASTATIN 10 MG TABLET PO SCH (08:46)
[2020-05-29] MEDS: FOLIC ACID 1 MG TABLET PO SCH (08:46)
[2020-05-29] MEDS: FLECAINIDE 100 MG TABLET PO SCH (08:46)
[2020-05-29] MEDS: PANTOPRAZOLE 40 MG TABLET PO SCH (08:47)
[2020-05-29] MEDS: INSULIN LISPRO 100 UNIT/ML SUBCUT SCH ×2 (11:58→13:16)
[2020-05-29] MEDS ORDERED: METHOTREXATE 2.5 MG TABLET PO SCH (12:00)
[2020-05-29 16:08] VITALS: BP 126/72
== END 2020-05-29 17:38 | disposition home health service (06) | DRG 271 ==
LOC: N.ED 09:53 → SUATTDRO 11:57 → N.EDINP 11:57 → N.TELEN 13:23 → N.ICU 05-26 12:46 → N.4E 05-27 13:59
PROVIDERS: ADMIT Internal Medicine; ATTEND Family Medicine

== ENCOUNTER 2020-06-26 21:45 | Inpatient (IN) ==
[2020-06-26] MEDS ORDERED: DILTIAZEM 50 MG/10 ML VIAL IV STA (23:05)
[2020-06-26] MEDS ORDERED: PANTOPRAZOLE 40 MG VIAL IV STA (23:05)
[2020-06-26] MEDS ORDERED: SODIUM CHLORIDE 0.9% 500 ML IV STA (23:05)
[2020-06-26] MEDS ORDERED: ONDANSETRON 4 MG/2 ML VIAL IV STA (23:05)
[2020-06-26] MEDS ORDERED: HYDROmorphone 2 MG/1 ML VIAL IV STA (23:05)
[2020-06-26 23:30] LABS: Basophils % 0.4 % (0.0-0.8); Eosinophils # 0.1 10*3/uL (0.0-0.87); Eosinophils % 1.5 % (0.00-10.9); Hematocrit 39.9 VOL% (35.7-47.0); Hemoglobin 12.1 GM/DL (12.0-16.0); Immature Granulocytes % 0.4 %; Immature Granulocytes Absolute 0.02 #; Lymphocytes # 0.8 10*3/uL (1.4-4.0); Lymphocytes % 15.5 % (21.3-54.2); Mean Corpuscular HGB Conc 30.3 GM/DL (32-36); Mean Corpuscular Volume 77.5 FL (87-102); Monocytes % 12.4 % (1.7-12.7); Neutrophils % 69.8 % (38.7-73.9); Platelet Count 210 T/CUMM (130-400); Red Blood Count 5.15 MC/CUMM (3.8-5.5); Red Cell Distribution Width 20.3 % (9.3-17.3); White Blood Count 5.4 T/CUMM (4-12)
[2020-06-26] MEDS: DILTIAZEM INJ 100 MG in SODIUM CHLORIDE 0.9% 100 ML IV SCH (23:41)
[2020-06-26 23:47] LABS: Bilirubin,Total 0.8 MG/DL (0.2-1.0); Calcium 8.3 MG/DL (8.5-10.1); Osmolality,Calculated 285.1 MOS/KG (273-304); Potassium 3.8 MMOL/L (3.5-5.1); Total Protein 6.5 G/DL (6.4-8.2)
[2020-06-26 23:54] LABS: Amorphous Crystals,Urine Occasional /HPF (Few); Bacteria,Urine Occasional /HPF (Few); Bilirubin,Urine Negative (Negative); Blood, Urine Negative (Negative); Glucose,Urine (UA) Negative (Negative); Hyaline Casts,Urine 8 /LPF (0-3); Ketones,Urine Negative (Negative); Mucus,Urine Few /LPF (Occasional); Nitrite,Urine Negative (Negative); Protein,Urine 100 MG/DL; RBC,Urine 27 /HPF (0-4); Squamous Epithelial Cell,Urine Occasional /HPF (0-10); Urine Appearance CLOUDY (Clear); Urine Color Amber (Yellow); Urine Specific Gravity 1.012 (1.001-1.035)
[2020-06-27] MEDS ORDERED: PIPERACILLIN/TAZOBACTAM 3,375 MG in SODIUM CHLORIDE 0.9% 100 ML IV STA (01:07)
[2020-06-27] MEDS ORDERED: ACETAMINOPHEN 325 MG TABLET PO PRN (03:20)
[2020-06-27] MEDS: SODIUM CHLORIDE 0.9% 1,000 ML IV SCH ×3 (04:10→20:00)
[2020-06-27 05:30] LABS: Basophils % 0.4 % (0.0-0.8); Eosinophils # 0.2 10*3/uL (0.0-0.87); Eosinophils % 3.1 % (0.00-10.9); Hematocrit 36.2 VOL% (35.7-47.0); Hemoglobin 10.9 GM/DL (12.0-16.0); Immature Granulocytes % 0.2 %; Immature Granulocytes Absolute 0.01 #; Lymphocytes # 1.2 10*3/uL (1.4-4.0); Lymphocytes % 23.7 % (21.3-54.2); Mean Corpuscular HGB Conc 30.1 GM/DL (32-36); Mean Corpuscular Volume 78.2 FL (87-102); Mean Platelet Volume 9.5 FL (9.6-12.0); Monocytes % 14.1 % (1.7-12.7); Neutrophils % 58.5 % (38.7-73.9); Platelet Count 189 T/CUMM (130-400); Red Blood Count 4.63 MC/CUMM (3.8-5.5); Red Cell Distribution Width 20.3 % (9.3-17.3); White Blood Count 5.2 T/CUMM (4-12)
[2020-06-27 06:07] LABS: Albumin 2.5 G/DL (3.4-5.0); Calcium 8.3 MG/DL (8.5-10.1); Osmolality,Calculated 279.4 MOS/KG (273-304); Potassium 3.7 MMOL/L (3.5-5.1)
[2020-06-27] MEDS ORDERED: NON-FORMULARY MEDICATION (Esomeprazole Magnesium 20 mg Tablet,Delayed Release (Dr/Ec)) PO SCH (09:00)
[2020-06-27] MEDS ORDERED: METOPROLOL TARTRATE 5 MG/5 ML VIAL IV ONE (09:02)
[2020-06-27] MEDS: DILTIAZEM INJ 100 MG in SODIUM CHLORIDE 0.9% 100 ML IV SCH ×2 (09:13→19:15)
[2020-06-27] MEDS: FLECAINIDE 100 MG TABLET PO SCH ×2 (09:14→22:08)
[2020-06-27] MEDS: PIPERACILLIN/TAZOBACTAM 3,375 MG in SODIUM CHLORIDE 0.9% 100 ML IV SCH ×2 (09:14→17:57)
[2020-06-27] MEDS: PANTOPRAZOLE 40 MG VIAL IV SCH (09:14)
[2020-06-27] MEDS: FUROSEMIDE 20 MG TABLET PO SCH (09:14)
[2020-06-27] MEDS: DILTIAZEM CD 240 MG CAPSULE PO SCH ×2 (09:15→22:07)
[2020-06-27] MEDS: FOLIC ACID 1 MG TABLET PO SCH (09:15)
[2020-06-27] MEDS: MULTIVITAMIN (CENTRUM) TABLET PO SCH (09:15)
[2020-06-27] MEDS: ESCITALOPRAM 10 MG TABLET PO SCH (09:15)
[2020-06-27] MEDS: APIXABAN 5 MG TABLET PO SCH ×2 (09:15→22:08)
[2020-06-27] MEDS: SIMVASTATIN 10 MG TABLET PO SCH (09:15)
[2020-06-27] MEDS: FENOFIBRATE 145 MG TABLET PO SCH (09:15)
[2020-06-27] MEDS: ASPIRIN CHEW 81 MG TABLET PO SCH (09:15)
[2020-06-27] MEDS ORDERED: LIDOCAINE 1%/EPI INJ 20 ML VIAL ONE (14:00)
[2020-06-27] MEDS ORDERED: BUPIVACAINE MPF 0.25% 30 ML VIAL ONE (14:00)
[2020-06-27] MEDS ORDERED: propofoL 200 MG/20 ML VIAL IV ONE (14:37)
[2020-06-27] MEDS ORDERED: LIDOCAINE 2% 5 ML VIAL ONE (14:37)
[2020-06-27] MEDS ORDERED: ONDANSETRON 4 MG/2 ML VIAL ONE ×2 (14:37→16:27)
[2020-06-27] MEDS ORDERED: ROCURONIUM 50 MG/5 ML VIAL IV ONE (14:37)
[2020-06-27] MEDS ORDERED: fentaNYL 100 MCG/2 ML VIAL ONE ×2 (14:37→15:34)
[2020-06-27] MEDS ORDERED: MIDAZOLAM 2 MG/2 ML VIAL ONE ×3 (14:38→18:39)
[2020-06-27] MEDS ORDERED: SEVOFLURANE 1 UNIT/15 MINUTE INH ONE ×3 (15:34→18:39)
[2020-06-27] MEDS ORDERED: SUCCINYLCHOLINE 200 MG/10 ML VIAL ONE (15:36)
[2020-06-27] MEDS ORDERED: PHENYLEPHRINE 10 MG/1 ML VIAL IV ONE ×2 (16:08→16:49)
[2020-06-27] MEDS ORDERED: CALCIUM CHLORIDE 1,000 MG/10 ML VIAL IV ONE (16:22)
[2020-06-27] MEDS ORDERED: ALBUMIN 5% 25.0 GM/500 ML VIAL IV ONE (16:24)
[2020-06-27] MEDS ORDERED: LACTATED RINGERS 1,000 ML IV ONE (17:08)
[2020-06-27 19:58] LABS: Calcium 8.3 MG/DL (8.5-10.1); Osmolality,Calculated 282.3 MOS/KG (273-304)
[2020-06-27 19:59] LABS: Basophils % 0.2 % (0.0-0.8); Eosinophils # 0.1 10*3/uL (0.0-0.87); Eosinophils % 1.7 % (0.00-10.9); Hematocrit 37.7 VOL% (35.7-47.0); Hemoglobin 11.3 GM/DL (12.0-16.0); Immature Granulocytes % 0.2 %; Immature Granulocytes Absolute 0.01 #; Lymphocytes # 0.8 10*3/uL (1.4-4.0); Lymphocytes % 18.3 % (21.3-54.2); Mean Corpuscular Volume 79.7 FL (87-102); Mean Platelet Volume 10.1 FL (9.6-12.0); Neutrophils % 72.6 % (38.7-73.9); Platelet Count 173 T/CUMM (130-400); Red Blood Count 4.73 MC/CUMM (3.8-5.5); White Blood Count 4.2 T/CUMM (4-12)
[2020-06-27 20:53] LABS: ABG HCO3 21.9 MMOL/L (20-26); ABG Oxygen Saturation 95.8 % (95-100); ABG PCO2 56.6 MM HG (35-48); ABG PH 7.254 (7.35-7.45); ABG PO2 93.9 MM HG (80-95); ABG TCO2 22.9 MMOL/L (23-27); Allen Test Positive; Pt O2 Delivery Device Ventilator
[2020-06-27] MEDS: HYDROmorphone 2 MG/1 ML VIAL IV PRN (22:35)
[2020-06-28] MEDS: HYDROmorphone 2 MG/1 ML VIAL IV PRN ×2 (01:38→05:10)
[2020-06-28 04:13] LABS: ABG HCO3 21.2 MMOL/L (20-26); ABG Oxygen Saturation 98.7 % (95-100); ABG PCO2 52.9 MM HG (35-48); ABG PH 7.261 (7.35-7.45); ABG TCO2 21.5 MMOL/L (23-27)
[2020-06-28 05:04] LABS: Calcium 7.8 MG/DL (8.5-10.1); Osmolality,Calculated 278.5 MOS/KG (273-304); Potassium 3.8 MMOL/L (3.5-5.1)
[2020-06-28] MEDS ORDERED: METOPROLOL TARTRATE 5 MG/5 ML VIAL IV PRN (06:37)
[2020-06-28] MEDS ORDERED: MAGNESIUM SULF RIDER 2 GM/50 ML PREMIX IV PRN (06:43)
[2020-06-28 06:46] LABS: Basophils % 0.3 % (0.0-0.8); Eosinophils % 0.1 % (0.00-10.9); Hematocrit 40.6 VOL% (35.7-47.0); Immature Granulocytes % 0.5 %; Immature Granulocytes Absolute 0.04 #; Lymphocytes # 0.4 10*3/uL (1.4-4.0); Lymphocytes % 4.7 % (21.3-54.2); Mean Corpuscular HGB Conc 28.3 GM/DL (32-36); Mean Platelet Volume 9.5 FL (9.6-12.0); Monocytes % 3.5 % (1.7-12.7); Neutrophils % 90.9 % (38.7-73.9); Platelet Count 177 T/CUMM (130-400); Red Blood Count 4.95 MC/CUMM (3.8-5.5); Red Cell Distribution Width 20.6 % (9.3-17.3); White Blood Count 7.7 T/CUMM (4-12)
[2020-06-28 06:49] LABS: Hemoglobin 11.5 GM/DL (12.0-16.0)
[2020-06-28] MEDS: DILTIAZEM INJ 100 MG in SODIUM CHLORIDE 0.9% 100 ML IV SCH ×3 (06:56→23:52)
[2020-06-28 06:57] LABS: Band Neutrophils 4 % (0-10); Hypochromasia Slight; Lymphocytes 3 % (20-55); Microcytosis Slight; Ovalocytes Slight; Platelet Estimate Adequate; Segmented Neutrophils 89 % (50-85); Total Cells Counted 100
[2020-06-28] MEDS: ASPIRIN CHEW 81 MG TABLET PO SCH (09:33)
[2020-06-28] MEDS: DILTIAZEM 60 MG TABLET PO SCH ×4 (09:33→20:59)
[2020-06-28] MEDS: ESCITALOPRAM 10 MG TABLET PO SCH (09:34)
[2020-06-28] MEDS: SIMVASTATIN 10 MG TABLET PO SCH (09:34)
[2020-06-28] MEDS: MULTIVITAMIN (CENTRUM) TABLET PO SCH (09:34)
[2020-06-28] MEDS: FENOFIBRATE 145 MG TABLET PO SCH (09:34)
[2020-06-28] MEDS: PANTOPRAZOLE 40 MG VIAL IV SCH (09:34)
[2020-06-28] MEDS: FLECAINIDE 100 MG TABLET PO SCH ×2 (09:34→20:59)
[2020-06-28] MEDS: FOLIC ACID 1 MG TABLET PO SCH (09:34)
[2020-06-28] MEDS: FUROSEMIDE 20 MG TABLET PO SCH (09:34)
[2020-06-28] MEDS: APIXABAN 5 MG TABLET PO SCH ×2 (09:34→21:00)
[2020-06-28] MEDS: ALBUTEROL/IPRATROPIUM 3 ML NEB RESP TX SCH ×2 (12:27→19:29)
[2020-06-28] MEDS: SODIUM CHLORIDE 0.9% 1,000 ML IV SCH ×2 (13:46→23:53)
[2020-06-28] MEDS: DIGOXIN 0.5 MG/2 ML AMP IV SCH (14:33)
[2020-06-29] MEDS: ALBUTEROL/IPRATROPIUM 3 ML NEB RESP TX SCH ×4 (00:08→19:19)
[2020-06-29] MEDS: HYDROmorphone 2 MG/1 ML VIAL IV PRN ×3 (05:22→23:49)
[2020-06-29 06:09] LABS: Calcium 7.8 MG/DL (8.5-10.1); Osmolality,Calculated 288.1 MOS/KG (273-304); Potassium 4.2 MMOL/L (3.5-5.1)
[2020-06-29 06:18] LABS: Basophils % 0.2 % (0.0-0.8); Eosinophils % 0.6 % (0.00-10.9); Hematocrit 39.5 VOL% (35.7-47.0); Immature Granulocytes % 0.5 %; Immature Granulocytes Absolute 0.03 #; Lymphocytes # 0.6 10*3/uL (1.4-4.0); Lymphocytes % 8.8 % (21.3-54.2); Mean Corpuscular HGB Conc 29.6 GM/DL (32-36); Mean Platelet Volume 10.2 FL (9.6-12.0); Monocytes % 8.5 % (1.7-12.7); Neutrophils % 81.4 % (38.7-73.9); Platelet Count 170 T/CUMM (130-400); Red Blood Count 4.94 MC/CUMM (3.8-5.5); Red Cell Distribution Width 20.4 % (9.3-17.3); White Blood Count 6.5 T/CUMM (4-12)
[2020-06-29 06:19] LABS: Hemoglobin 11.7 GM/DL (12.0-16.0)
[2020-06-29] MEDS: SODIUM CHLORIDE 0.9% 1,000 ML IV SCH ×2 (07:17→14:30)
[2020-06-29] MEDS: APIXABAN 5 MG TABLET PO SCH ×2 (08:55→20:48)
[2020-06-29] MEDS: ASPIRIN CHEW 81 MG TABLET PO SCH (08:55)
[2020-06-29] MEDS: FOLIC ACID 1 MG TABLET PO SCH (08:55)
[2020-06-29] MEDS: MULTIVITAMIN (CENTRUM) TABLET PO SCH (08:55)
[2020-06-29] MEDS: DILTIAZEM 60 MG TABLET PO SCH ×4 (08:55→20:48)
[2020-06-29] MEDS: FUROSEMIDE 20 MG TABLET PO SCH (08:56)
[2020-06-29] MEDS: FLECAINIDE 100 MG TABLET PO SCH ×2 (08:56→20:48)
[2020-06-29] MEDS: FENOFIBRATE 145 MG TABLET PO SCH (08:56)
[2020-06-29] MEDS: PANTOPRAZOLE 40 MG VIAL IV SCH (08:56)
[2020-06-29] MEDS: ESCITALOPRAM 10 MG TABLET PO SCH (08:56)
[2020-06-29] MEDS: SIMVASTATIN 10 MG TABLET PO SCH (08:56)
[2020-06-29] MEDS: DILTIAZEM INJ 100 MG in SODIUM CHLORIDE 0.9% 100 ML IV SCH ×2 (12:33→23:26)
[2020-06-29] MEDS ORDERED: MIDAZOLAM 2 MG/2 ML VIAL ONE (12:53)
[2020-06-29] MEDS ORDERED: fentaNYL 100 MCG/2 ML VIAL ONE (13:13)
[2020-06-29] MEDS ORDERED: ROCURONIUM 50 MG/5 ML VIAL IV ONE (14:31)
[2020-06-29] MEDS ORDERED: SEVOFLURANE 1 UNIT/15 MINUTE INH ONE (14:32)
[2020-06-29] MEDS: DIGOXIN 0.5 MG/2 ML AMP IV SCH (14:53)
[2020-06-30] MEDS: ALBUTEROL/IPRATROPIUM 3 ML NEB RESP TX SCH ×4 (00:24→19:40)
[2020-06-30] MEDS: SODIUM CHLORIDE 0.9% 1,000 ML IV SCH ×3 (00:37→21:05)
[2020-06-30 04:49] LABS: Allen Test Positive; Pt O2 Delivery Device Ventilator
[2020-06-30 04:50] LABS: ABG Base Excess -2.8 MMOL/L (-2.5-2.5); ABG HCO3 21.9 MMOL/L (20-26); ABG Oxygen Saturation 98.1 % (95-100); ABG PCO2 37.7 MM HG (35-48); ABG PH 7.382 (7.35-7.45); ABG PO2 112.5 MM HG (80-95); ABG TCO2 23.1 MMOL/L (23-27)
[2020-06-30 05:02] LABS: Hematocrit 34.6 VOL% (35.7-47.0); Hemoglobin 10.4 GM/DL (12.0-16.0); Immature Granulocytes % 1.5 %; Immature Granulocytes Absolute 0.03 #; Lymphocytes # 0.4 10*3/uL (1.4-4.0); Lymphocytes % 17.8 % (21.3-54.2); Mean Corpuscular HGB Conc 30.1 GM/DL (32-36); Mean Corpuscular Volume 79.4 FL (87-102); Mean Platelet Volume 10.8 FL (9.6-12.0); Monocytes % 18.8 % (1.7-12.7); NRBC # 0.03 10*3/uL; Neutrophils % 59.9 % (38.7-73.9); Platelet Count 206 T/CUMM (130-400); Red Blood Count 4.36 MC/CUMM (3.8-5.5); Red Cell Distribution Width 20.2 % (9.3-17.3)
[2020-06-30 05:29] LABS: Band Neutrophils 4 % (0-10); Eosinophils 2 % (0-10); Lymphocytes 16 % (20-55); Metamyelocytes 2 %; Nucleated Red Blood Cells 2 (0-5); Platelet Estimate Normal; Segmented Neutrophils 58 % (50-85); Total Cells Counted 100
[2020-06-30 05:30] LABS: Hypochromasia Slight; Microcytosis 1+
[2020-06-30 05:46] LABS: Albumin 1.9 G/DL (3.4-5.0); Bilirubin,Total 1.5 MG/DL (0.2-1.0); Osmolality,Calculated 297.7 MOS/KG (273-304); Potassium 4.4 MMOL/L (3.5-5.1); Total Protein 4.9 G/DL (6.4-8.2)
[2020-06-30] MEDS: DILTIAZEM INJ 100 MG in SODIUM CHLORIDE 0.9% 100 ML IV SCH ×3 (05:51→19:55)
[2020-06-30] MEDS: FLECAINIDE 100 MG TABLET PO SCH ×2 (08:22→21:00)
[2020-06-30] MEDS: ESCITALOPRAM 10 MG TABLET PO SCH (08:22)
[2020-06-30] MEDS: ASPIRIN CHEW 81 MG TABLET PO SCH (08:22)
[2020-06-30] MEDS: FOLIC ACID 1 MG TABLET PO SCH (08:22)
[2020-06-30] MEDS: FENOFIBRATE 145 MG TABLET PO SCH (08:23)
[2020-06-30] MEDS: APIXABAN 5 MG TABLET PO SCH ×2 (08:23→21:00)
[2020-06-30] MEDS: FUROSEMIDE 20 MG TABLET PO SCH (08:23)
[2020-06-30] MEDS: SIMVASTATIN 10 MG TABLET PO SCH (08:23)
[2020-06-30] MEDS: PANTOPRAZOLE 40 MG VIAL IV SCH (08:27)
[2020-06-30] MEDS: MULTIVITAMIN (CENTRUM) TABLET PO SCH (09:04)
[2020-06-30] MEDS: DILTIAZEM 90 MG TABLET PO SCH ×4 (09:11→21:00)
[2020-06-30] MEDS: DIGOXIN 0.25 MG TABLET PO SCH (13:44)
[2020-07-01] MEDS: DILTIAZEM INJ 100 MG in SODIUM CHLORIDE 0.9% 100 ML IV SCH ×2 (00:34→04:16)
[2020-07-01] MEDS: ALBUTEROL/IPRATROPIUM 3 ML NEB RESP TX SCH ×4 (00:55→18:16)
[2020-07-01] MEDS: HYDROmorphone 2 MG/1 ML VIAL IV PRN ×2 (01:37→04:38)
[2020-07-01 03:21] LABS: Eosinophils % 0.5 % (0.00-10.9); Hematocrit 30.6 VOL% (35.7-47.0); Immature Granulocytes % 0.7 %; Immature Granulocytes Absolute 0.03 #; Lymphocytes # 0.5 10*3/uL (1.4-4.0); Lymphocytes % 12.2 % (21.3-54.2); Mean Corpuscular HGB Conc 29.4 GM/DL (32-36); Mean Corpuscular Volume 79.7 FL (87-102); Mean Platelet Volume 10.2 FL (9.6-12.0); Monocytes % 14.4 % (1.7-12.7); NRBC # 0.03 10*3/uL; Neutrophils % 72.2 % (38.7-73.9); Platelet Count 174 T/CUMM (130-400); Red Blood Count 3.84 MC/CUMM (3.8-5.5); White Blood Count 4.4 T/CUMM (4-12)
[2020-07-01 03:42] LABS: Albumin 1.7 G/DL (3.4-5.0); Bilirubin,Total 1.4 MG/DL (0.2-1.0); Calcium 7.5 MG/DL (8.5-10.1); Osmolality,Calculated 306.6 MOS/KG (273-304); Potassium 4.1 MMOL/L (3.5-5.1); Total Protein 4.8 G/DL (6.4-8.2)
[2020-07-01 04:20] LABS: ABG Base Excess -4.4 MMOL/L (-2.5-2.5); ABG HCO3 20.7 MMOL/L (20-26); ABG Oxygen Saturation 94.8 % (95-100); ABG PCO2 40.5 MM HG (35-48); ABG PH 7.328 (7.35-7.45); ABG PO2 78.7 MM HG (80-95); ABG TCO2 19.7 MMOL/L (23-27); Allen Test Positive; Pt O2 Delivery Device BIPAP
[2020-07-01 04:45] LABS: Band Neutrophils 13 % (0-10); Lymphocytes 11 % (20-55); Nucleated Red Blood Cells 3 (0-5); Segmented Neutrophils 64 % (50-85); Total Cells Counted 100
[2020-07-01 04:55] LABS: Ovalocytes 2+; Platelet Estimate Normal
[2020-07-01 04:56] LABS: Burr Cells 2+; Microcytosis 2+
[2020-07-01 04:57] LABS: Hypochromasia Slight; Schistocytes Few
[2020-07-01] MEDS: ASPIRIN CHEW 81 MG TABLET PO SCH (08:25)
[2020-07-01] MEDS: FLECAINIDE 100 MG TABLET PO SCH ×2 (08:25→21:11)
[2020-07-01] MEDS: SIMVASTATIN 10 MG TABLET PO SCH (08:25)
[2020-07-01] MEDS: DILTIAZEM 90 MG TABLET PO SCH ×4 (08:25→21:11)
[2020-07-01] MEDS: APIXABAN 5 MG TABLET PO SCH ×2 (08:26→21:11)
[2020-07-01] MEDS: FUROSEMIDE 20 MG TABLET PO SCH (08:26)
[2020-07-01] MEDS: FENOFIBRATE 145 MG TABLET PO SCH (08:26)
[2020-07-01] MEDS: FOLIC ACID 1 MG TABLET PO SCH (08:26)
[2020-07-01] MEDS: ESCITALOPRAM 10 MG TABLET PO SCH (08:26)
[2020-07-01] MEDS: PANTOPRAZOLE 40 MG VIAL IV SCH (08:29)
[2020-07-01] MEDS: LACTATED RINGERS 1,000 ML IV SCH ×2 (08:32→19:30)
[2020-07-01] MEDS: SODIUM CHLORIDE 0.9% 1,000 ML IV SCH (08:38)
[2020-07-01] MEDS: MULTIVITAMIN (CENTRUM) TABLET PO SCH (08:39)
[2020-07-01] MEDS: DIGOXIN 0.25 MG TABLET PO SCH (15:25)
[2020-07-02] MEDS: ALBUTEROL/IPRATROPIUM 3 ML NEB RESP TX SCH ×4 (01:48→18:39)
[2020-07-02] MEDS: DILTIAZEM INJ 100 MG in SODIUM CHLORIDE 0.9% 100 ML IV SCH ×2 (03:12→20:00)
[2020-07-02] MEDS: HYDROmorphone 2 MG/1 ML VIAL IV PRN ×2 (03:31→15:04)
[2020-07-02 05:02] LABS: Basophils % 0.2 % (0.0-0.8); Eosinophils # 0.1 10*3/uL (0.0-0.87); Eosinophils % 1.1 % (0.00-10.9); Hematocrit 28.4 VOL% (35.7-47.0); Hemoglobin 8.3 GM/DL (12.0-16.0); Immature Granulocytes % 0.7 %; Immature Granulocytes Absolute 0.03 #; Lymphocytes # 0.4 10*3/uL (1.4-4.0); Lymphocytes % 8.4 % (21.3-54.2); Mean Corpuscular HGB Conc 29.2 GM/DL (32-36); Mean Platelet Volume 9.5 FL (9.6-12.0); Monocytes % 15.8 % (1.7-12.7); NRBC # 0.02 10*3/uL; Neutrophils % 73.8 % (38.7-73.9); Platelet Count 164 T/CUMM (130-400); Red Blood Count 3.55 MC/CUMM (3.8-5.5); Red Cell Distribution Width 19.9 % (9.3-17.3); White Blood Count 4.4 T/CUMM (4-12)
[2020-07-02 05:23] LABS: Albumin 1.7 G/DL (3.4-5.0); Bilirubin,Total 2.1 MG/DL (0.2-1.0); Calcium 7.9 MG/DL (8.5-10.1); Osmolality,Calculated 313.7 MOS/KG (273-304); Potassium 3.7 MMOL/L (3.5-5.1)
[2020-07-02 05:25] LABS: Band Neutrophils 5 % (0-10); Hypochromasia Slight; Lymphocytes 5 % (20-55); Nucleated Red Blood Cells 3 (0-5); Platelet Estimate Normal; Segmented Neutrophils 81 % (50-85); Total Cells Counted 100
[2020-07-02] MEDS: LACTATED RINGERS 1,000 ML IV SCH ×2 (05:43→23:00)
[2020-07-02] MEDS: MULTIVITAMIN (CENTRUM) TABLET PO SCH (08:24)
[2020-07-02] MEDS: ASPIRIN CHEW 81 MG TABLET PO SCH (08:27)
[2020-07-02] MEDS: APIXABAN 5 MG TABLET PO SCH ×2 (08:27→23:02)
[2020-07-02] MEDS: FOLIC ACID 1 MG TABLET PO SCH (08:27)
[2020-07-02] MEDS: SIMVASTATIN 10 MG TABLET PO SCH (08:27)
[2020-07-02] MEDS: FENOFIBRATE 145 MG TABLET PO SCH (08:27)
[2020-07-02] MEDS: FUROSEMIDE 20 MG TABLET PO SCH (08:27)
[2020-07-02] MEDS: FLECAINIDE 100 MG TABLET PO SCH ×2 (08:28→22:53)
[2020-07-02] MEDS: ESCITALOPRAM 10 MG TABLET PO SCH (08:28)
[2020-07-02] MEDS: DILTIAZEM 90 MG TABLET PO SCH ×4 (08:29→22:53)
[2020-07-02] MEDS: PANTOPRAZOLE 40 MG VIAL IV SCH (08:33)
[2020-07-02] MEDS: DIGOXIN 0.25 MG TABLET PO SCH (12:37)
[2020-07-03] MEDS: ALBUTEROL/IPRATROPIUM 3 ML NEB RESP TX SCH ×4 (01:37→19:26)
[2020-07-03 05:24] LABS: Basophils % 0.3 % (0.0-0.8); Eosinophils % 0.3 % (0.00-10.9); Hematocrit 30.6 VOL% (35.7-47.0); Hemoglobin 9.2 GM/DL (12.0-16.0); Immature Granulocytes Absolute 0.06 #; Lymphocytes # 0.4 10*3/uL (1.4-4.0); Lymphocytes % 6.3 % (21.3-54.2); Mean Corpuscular HGB Conc 30.1 GM/DL (32-36); Mean Corpuscular Volume 79.3 FL (87-102); Mean Platelet Volume 9.9 FL (9.6-12.0); NRBC # 0.04 10*3/uL; Neutrophils % 77.1 % (38.7-73.9); Platelet Count 224 T/CUMM (130-400); Red Blood Count 3.86 MC/CUMM (3.8-5.5); Red Cell Distribution Width 20.1 % (9.3-17.3); White Blood Count 6.2 T/CUMM (4-12)
[2020-07-03 05:51] LABS: Anisocytosis 1+; Band Neutrophils 6 % (0-10); Hypochromasia 1+; Lymphocytes 5 % (20-55); Microcytosis 1+; Ovalocytes Few; Promyelocytes 2 %; Segmented Neutrophils 75 % (50-85); Total Cells Counted 100
[2020-07-03 05:55] LABS: Albumin 1.7 G/DL (3.4-5.0); Bilirubin,Total 2.4 MG/DL (0.2-1.0); Potassium 3.5 MMOL/L (3.5-5.1); Total Protein 5.4 G/DL (6.4-8.2)
[2020-07-03] MEDS: LACTATED RINGERS 1,000 ML IV SCH (06:18)
[2020-07-03] MEDS ORDERED: METHOTREXATE 2.5 MG TABLET PO SCH (09:00)
[2020-07-03] MEDS ORDERED: METOPROLOL TARTRATE 25 MG TABLET PER TUBE SCH (09:00)
[2020-07-03] MEDS ORDERED: DEXTROSE 5% 1,000 ML IV SCH (09:00)
[2020-07-03] MEDS: ASPIRIN CHEW 81 MG TABLET PO SCH (09:24)
[2020-07-03] MEDS: FENOFIBRATE 145 MG TABLET PO SCH (09:24)
[2020-07-03] MEDS: DILTIAZEM 90 MG TABLET PO SCH ×2 (09:24→12:43)
[2020-07-03] MEDS: FLECAINIDE 100 MG TABLET PO SCH (09:24)
[2020-07-03] MEDS: MULTIVITAMIN (CENTRUM) TABLET PO SCH (09:24)
[2020-07-03] MEDS: FUROSEMIDE 20 MG TABLET PO SCH (09:25)
[2020-07-03] MEDS: ESCITALOPRAM 10 MG TABLET PO SCH (09:25)
[2020-07-03] MEDS: SIMVASTATIN 10 MG TABLET PO SCH (09:25)
[2020-07-03] MEDS: PANTOPRAZOLE 40 MG VIAL IV SCH (09:26)
[2020-07-03] MEDS: FOLIC ACID 1 MG TABLET PO SCH (09:26)
[2020-07-03] MEDS: APIXABAN 5 MG TABLET PO SCH (09:26)
[2020-07-03] MEDS: DILTIAZEM INJ 100 MG in SODIUM CHLORIDE 0.9% 100 ML IV SCH (09:27)
[2020-07-03] MEDS: DIGOXIN 0.25 MG TABLET PO SCH (12:43)
[2020-07-03] MEDS ORDERED: ACETAMINOPHEN 650 MG SUPP RECTAL PRN (20:14)
[2020-07-03] MEDS: ONDANSETRON 4 MG/2 ML VIAL IV PRN (22:39)
[2020-07-03] MEDS: HYDROmorphone 2 MG/1 ML VIAL IV PRN (22:40)
[2020-07-04] MEDS: ALBUTEROL/IPRATROPIUM 3 ML NEB RESP TX SCH ×2 (00:03→07:24)
[2020-07-04] MEDS: ONDANSETRON 4 MG/2 ML VIAL IV PRN (05:09)
[2020-07-04] MEDS: HYDROmorphone 2 MG/1 ML VIAL IV PRN ×2 (05:09→09:02)
[2020-07-04] MEDS ORDERED: OMEPRAZOLE ODT 20 MG TABLET PER TUBE SCH (06:30)
[2020-07-04] MEDS ORDERED: HYDROmorphone 2 MG/1 ML VIAL IV PRN (11:21)
[2020-07-04 11:58] VITALS: BP 135/63
[2020-07-04] MEDS: MORPHINE 4 MG/1 ML VIAL IV PRN ×3 (12:09→15:40)
[2020-07-04] MEDS ORDERED: LORazepam 2 MG/1 ML VIAL IV PRN ×2 (13:28)
== END 2020-07-04 16:06 | disposition expired | DRG 329 ==
LOC: N.ED 21:45 → N.EDINP 06-27 01:32 → N.TELES 06-27 01:58 → N.ICU 06-27 18:35 → N.TELEN 07-02 14:53 → N.4E 07-04 11:20
PROVIDERS: ADMIT Surgery; ATTEND Surgery